=== PATIENT | male | born 1955 | race Caucasian/White ===

== ENCOUNTER 2018-09-10 15:11 | Inpatient (IN) | payer OTHER, MEDICAID ==
[~2018-09-10] VITALS: Ht 165.1 cm; Wt 108.9 kg
[2018-09-10 15:15] VITALS: BP 142/61
[2018-09-10] MEDS ORDERED: NACL 0.9% 1,000 ML IV SCH (15:15)
--- NOTE | 2018-09-10 15:18 | NUR ---
PT BIBA TO BED 10
--- NOTE | 2018-09-10 15:31 | NUR ---
PATIENT BIB AMBULANCE TO ED WITH THE CHIEF C/O ALTERED MENTAL STATUS. PT A/O X4. ABLE TO PROVIDE HX. PT STATED HE HAD N/V. DENIES DIARRHEA. SKIN IS PINK/WARM/DRY. PT DENIES ANY FEVER, CP, SOB, OR COUGH AT THIS TIME; PATIENT STATES PAIN AT LOWER JAW OF 10/10 AT THIS TIME; VSS; PATIENT POSITIONED FOR COMFORT; HOB ELEVATED; BEDRAILS UP X2; BED DOWN. ER MD MADE AWARE OF PT STATUS.
[2018-09-10 15:43] LABS: BASOPHILS % (AUTO) 0.3 % (0.0-2.0); EOSINOPHILS # (AUTO) 0.1 K/uL (0-0.4); HEMATOCRIT 26.9 % (36-52); HEMOGLOBIN 8.9 g/dL (12.0-18.0); LYMPHOCYTES # (AUTO) 0.7 K/uL (2.0-11.5); LYMPHOCYTES % (AUTO) 8.4 % (20.5-51.1); MEAN CORPUSCULAR HEMOGLOBIN 31 pg (27-31); MEAN CORPUSCULAR HGB CONC 33 g/dL (33-37); MONOCYTES # (AUTO) 0.4 K/uL (0.8-1.0); MONOCYTES % (AUTO) 4.9 % (1.7-9.3); NEUTROPHILS # (AUTO) 6.6 K/uL (1.8-7.7); NEUTROPHILS % (AUTO) 85.4 % (42.2-75.2); PLATELET COUNT (AUTO) 231 K/uL (140-450); RED BLOOD CELL COUNT(AUTO) 2.87 MIL/uL (4.20-6.10); RED CELL DISTRIBUTION WIDTH 14.2 % (11.6-13.7); WHITE BLOOD COUNT (AUTO) 7.8 K/uL (4.8-10.8)
[2018-09-10 16:01] LABS: PROTHROMBIN TIME 11.2 secs (10.8-13.4)
[2018-09-10 16:20] LABS: ALBUMIN 3.2 g/dL (3.4-5.0); ANION GAP 23.5 (8-16); CARBON DIOXIDE 14.9 mmol/L (21-32); POTASSIUM 4.4 mmol/L (3.5-5.1); TOTAL BILIRUBIN 0.3 mg/dL (0.0-1.0)
[2018-09-10] MEDS ORDERED: TRAM50TA1 PO (16:21)
[2018-09-10 16:23] LABS: CREATININE 7.8 mg/dL (0.7-1.3)
[2018-09-10 16:26] LABS: SALICYLATE < 2.8 mg/dL (2.8-20.0)
[2018-09-10 16:27] LABS: ACETAMINOPHEN < 0.5 ug/ml (10-30)
--- NOTE | 2018-09-10 16:40 | NUR ---
URINE SAMPLE FOR UA AKANDREW TO THE LAB.
[2018-09-10 16:57] LABS: BILIRUBIN,URINE NEGATIVE (NEGATIVE); BLOOD, URINE MODERATE (NEGATIVE); LEUKOCYTE ESTERASE ,URINE SMALL (NEGATIVE); NITRITE, URINE NEGATIVE (NEGATIVE); UGLUCOSE 1+ (NEGATIVE)
[2018-09-10 16:58] LABS: BARBITURATE, URINE NEG. ng/ml (NEG <=200); BENZODIAZEPINE, URINE NEG. ng/mL (NEG <=200); CANNABINOID, URINE NEG. ng/mL (NEG <=50); COCAINE, URINE POS. ng/mL (NEG <=300); COLOR,URINE YELLOW (YELLOW); OPIATE, URINE NEG. ng/mL (NEG <=2000); PHENCYCLIDINE SCREEN,URINE NEG. ng/mL (NEG <=25)
[2018-09-10 17:07] LABS: CKMB RELATIVE INDEX 0.7 (0.0-2.5); CREATINE KINASE MB 6.4 ng/mL (0-3.6)
[2018-09-10 17:13] LABS: APPEARANCE,URINE SLIGHTLY CLOUDY (CLEAR); RBC,URINE 0-5 (RARE) /HPF (0-5); WBC,URINE TOO MANY TO COUNT /HPF (0-5)
[2018-09-10] MEDS ORDERED: DOCUSATE SODIUM 100 MG GELCAP PO PRN (17:30)
[2018-09-10] MEDS ORDERED: ONDANSETRON 4 MG/2 ML VIAL IM/IVP PRN (17:30)
[2018-09-10] MEDS ORDERED: ACETAMINOPHEN 325 MG TAB PO PRN (17:30)
[2018-09-10] MEDS: NACL 0.9% 1,000 ML IV SCH (17:53)
[2018-09-10] MEDS ORDERED: cefTRIAXone 1,000 MG VIAL ONE (17:55)
[2018-09-10 18:28] LABS: MAGNESIUM 2.2 mg/dL (1.8-2.4); PHOSPHORUS 7.3 mg/dL (2.5-4.9); THYROID STIMULATING HORMONE 2.36 uIU/mL (0.34-3.74)
--- NOTE | 2018-09-10 18:44 | NUR ---
Patient admitted to the floor under the care of Dr. Reynolds . Pt. transferred to 107B on stable condition. Belongings list completed. Report given to CAROL Lin.
--- NOTE | 2018-09-10 18:45 | NUR ---
PATIENT ADMITTED TO THE UNIT FROM ER. PATIENT IS DROWSY BUT AROUSABLE. RIGHT LOWER JAW SWELLING NOTED. PATIENT REPORTS OF 10/10 PAIN IN HIS JAW. WILL MEDICATE. FALL PRECAUTIONS IN PLACE. CALL LIGHT PLACED WITHIN REACH. WILL CONTINUE TO MONITOR
[2018-09-10 18:55] VITALS: BP 151/75
[2018-09-10] MEDS: MORPHINE SULFATE 2 MG/ML SYR IVP PRN (18:58)
--- NOTE | 2018-09-10 19:30 | NUR ---
PATIENT REPORT GIVEN AT BEDSIDE. PATIENT ENDORSED IN STABLE CONDITION
--- NOTE | 2018-09-10 19:30 | NUR ---
RECEIVED REPORT FROM JOSE LUIS RN DAYSHIFT NURSE AT BEDSIDE, FOR CONTINUITY OF CARE, PT IN STABLE CONDITION.
--- NOTE | 2018-09-10 20:30 | NUR ---
PT IN LOW BED WITH SIDE RAILS UP X2. PT AWARE OF NAME AND THAT HE IS IN A HOSPITAL, HE HAS BEEN COOPERATIVE WITH STAFF. PT V/S FOLLOWS T 97.7 P 66 R 20 B/P 146/76 02 100 ON R/A. PT SKIN IN TACT EXCEPT FOR SOME SWELLING IN RIGHT SIDE OF CHEEK AND BILATERAL LOWER LEGS ARE VERY DRY AND FLAKEY WELL DISCOLORED.
[2018-09-10] MEDS ORDERED: MECLIZINE 25 MG TAB PO PRN (20:45)
[2018-09-10] MEDS ORDERED: DEXTROSE 50% 50 ML SYR IVP PRN (20:50)
[2018-09-10] MEDS ORDERED: INSULIN LISPRO SLIDING SCALE 100 UNITS/ML VIAL SUBQ PRN (20:50)
--- NOTE | 2018-09-10 20:50 | NUR ---
UNABLE TO GET PROPER ABG SAMPLE ATTEMPTED 2X'S. SAT 98 HR 71 RR 18. PT IS ON RA. WILL TRY AGAIN LATER.
[2018-09-10] MEDS: BLOOD GLUCOSE MONITORING 1 DEV DEV FS SCH (21:00)
--- NOTE | 2018-09-10 21:00 | NUR ---
PT IN BED RESTING, HE IS ABLE TO AMBULATE BUT HE HAS BEEN USING URINAL AT BEDSIDE.PT AMBULATED TO W/C FOR CT SCAN OF THE HEAD.
[2018-09-10 21:14] LABS: CHOL/HDL RATIO 2.7 (1-4.5)
--- NOTE | 2018-09-10 21:15 | NUR ---
PT RETUNED FROM HEAD CT.
--- NOTE | 2018-09-10 21:30 | NUR ---
PT GIVEN 2100 MEDS DUE AT THIS TIME.
--- NOTE | 2018-09-10 22:00 | NUR ---
NEPHROLOGY CONSULT AT BEDSIDE. PRIMARY DR. ARAUJO AWARE AND UPDATED.
--- NOTE | 2018-09-10 22:30 | NUR ---
US OF CAROTIDS DONE AT BEDSIDE.
[2018-09-10] MEDS: CALCIUM ACETATE 667 MG TAB PO SCH (22:46)
[2018-09-10] MEDS: METOPROLOL 25 MG TAB PO SCH (22:46)
[2018-09-11] VITALS: BP 119/78
--- NOTE | 2018-09-11 | NUR ---
PT IN BED SLEEPING BUT AROUSABLE TO LIGHT SHAKING. NO S/S OF PAIN IR DISTRESS NOTED. V/S FOLLOWS T 99.6 P 59 R 18 B/P 119/78 02 95% WITH R/A.
[2018-09-11] MEDS: NACL 0.9% 1,000 ML IV SCH (05:59)
[2018-09-11 07:16] LABS: BASOPHILS # (AUTO) 0.1 K/uL (0.00-0.22); BASOPHILS % (AUTO) 0.9 % (0.0-2.0); EOSINOPHILS # (AUTO) 0.2 K/uL (0-0.4); EOSINOPHILS % (AUTO) 2.4 % (0.0-4.0); HEMATOCRIT 26.1 % (36-52); HEMOGLOBIN 8.6 g/dL (12.0-18.0); LYMPHOCYTES # (AUTO) 0.8 K/uL (2.0-11.5); LYMPHOCYTES % (AUTO) 11.1 % (20.5-51.1); MEAN CORPUSCULAR HEMOGLOBIN 31 pg (27-31); MEAN CORPUSCULAR HGB CONC 33 g/dL (33-37); MEAN CORPUSCULAR VOLUME 94.9 fL (80-94); MONOCYTES # (AUTO) 0.3 K/uL (0.8-1.0); MONOCYTES % (AUTO) 4.5 % (1.7-9.3); NEUTROPHILS # (AUTO) 5.9 K/uL (1.8-7.7); NEUTROPHILS % (AUTO) 81.1 % (42.2-75.2); PLATELET COUNT (AUTO) 210 K/uL (140-450); RED BLOOD CELL COUNT(AUTO) 2.75 MIL/uL (4.20-6.10); RED CELL DISTRIBUTION WIDTH 14.2 % (11.6-13.7); WHITE BLOOD COUNT (AUTO) 7.2 K/uL (4.8-10.8)
[2018-09-11 07:22] LABS: ANION GAP 21.9 (8-16); CARBON DIOXIDE 15.2 mmol/L (21-32); POTASSIUM 4.1 mmol/L (3.5-5.1)
[2018-09-11 07:26] LABS: MAGNESIUM 2.2 mg/dL (1.8-2.4); PHOSPHORUS 6.6 mg/dL (2.5-4.9)
[2018-09-11 07:28] LABS: CHOL/HDL RATIO 2.6 (1-4.5)
[2018-09-11 07:29] LABS: CREATININE 7.2 mg/dL (0.7-1.3)
--- NOTE | 2018-09-11 07:29 | NUR ---
RECEIVED CRITICAL LAB VALUE FOR PT. BUN IS 102, CREATININE AT 7.2. BOTH VALUES TRENDING DOWN.
[2018-09-11] MEDS: BLOOD GLUCOSE MONITORING 1 DEV DEV FS SCH ×4 (07:30→21:03)
--- NOTE | 2018-09-11 07:30 | NUR ---
RECEIVED CRITICAL FOR PT. CALCIUM AT 5.6. VALUE IS TRENDING UP.
--- NOTE | 2018-09-11 07:30 | NUR ---
REPORT GIVEN TO LINH MEDINA DAYSHIFT NURSE AT BEDSIDE FOR CONTINUITY OF CARE, PT IN STABLE CONDITION
--- NOTE | 2018-09-11 07:46 | NUR ---
RECEIVED REPORT FROM COMPENSATION AND BENEFITS MANAGER NURSE. PT IN STABLE CONDITION. PT HAS LEFT FA 20G IV RUNNING NS AT 80ML/HR. PT SKIN IS INTACT. PT IS AAOX3. ALL NEEDS MET AT THIS TIME. WILL CONTINUE TO MONITOR.
--- NOTE | 2018-09-11 07:55 | NUR ---
PT BS AT 157. PT REFUSED INSULIN COVERAGE FOR ELEVATED BS.
[2018-09-11 08:00] VITALS: BP 131/60
[2018-09-11] MEDS ORDERED: ONDANSETRON 4 MG/2 ML VIAL IVP SCH (08:00)
--- NOTE | 2018-09-11 08:50 | NUR ---
PATIENT HAS BEEN SCREENED AND CATEGORIZED HIGH NUTRITION RISK. PATIENT WILL BE SEEN WITHIN 1-2 DAYS OF ADMISSION. 09/11/18 09/12/[address]
--- NOTE | 2018-09-11 08:55 | NUR ---
ADMINISTERED SCHEDULED MEDS TO TP. PT TOLERATED MEDS WELL. ALL NEEDS MET AT THIS TIME. WILL CONTINUE TO ROUND FREQUENTLY. BED IN LOW POSITION. CALL LIGHT WITHIN REACH.
[2018-09-11] MEDS: METOPROLOL 25 MG TAB PO SCH ×2 (08:57→21:03)
[2018-09-11] MEDS: CALCIUM CARBONATE 500 MG TAB PO SCH (08:57)
[2018-09-11] MEDS: CALCIUM ACETATE 667 MG TAB PO SCH ×3 (08:57→17:13)
--- NOTE | 2018-09-11 09:09 | NUR ---
PT AMBULATING WITH PHYSICAL THERAPY AT THIS TIME.
[2018-09-11] MEDS ORDERED: CALCIUM GLUCONATE 10% 1,000 MG in NACL 0.9% 100 ML IV SCH (12:00)
--- NOTE | 2018-09-11 14:33 | NUR ---
09/11/18 RD INITIAL ASSESSMENT COMPLETED PLEASE REFER TO NUTRITION ASSESSMENT UNDER CARE ACTIVITY FOR ESTIMATED NUTRITIONAL NEEDS. 1. CONTINUE CLEAR LIQUID DIET TOLERATED 2. WHEN APPROPRIATE, CONSIDER ADVANCING DIET TOLERATED TO RENAL DIET PER MD 3. PATIENT DECLINED RENAL DIET EDUCATION. 4. RD TO FOLLOW-UP 3-5 DAYS, MODERATE RISK BERNARD K[address]EN RD
[2018-09-11 16:00] VITALS: BP 142/62
[2018-09-11] MEDS: SODIUM BICARBONATE 8.4% 100 MEQ in NACL 0.45% 1,000 ML IV SCH (17:13)
--- NOTE | 2018-09-11 20:52 | NUR ---
ENDORSED PT TP DATABASE DESIGN ANALYST FOR CONTINUITY OF CARE. PT IN STABLE CONDITION.
--- NOTE | 2018-09-11 20:52 | NUR ---
RECEIVED REPORT FROM KERI MEDINA DAYSHIFT NURSE AT BEDSIDE FOR CONTINUITY OF CARE, PT IN STABLE CONDITION.
[2018-09-11] MEDS: MORPHINE SULFATE 2 MG/ML SYR IVP PRN (21:22)
--- NOTE | 2018-09-11 21:30 | NUR ---
PT IN LOW BED WITH ALL FALLS PRECAUTIONS IN PLACE. V/S FOLLOWS T 98.7 P 58 R 18 B/P 114/66 02 99% WITH R/A. PT C/O 8 PAIN IN MOUTH DUE TO TOOTH ABSCESS. PT MEDICATED WITH MORPHINE IVP. WILL MONITOR FOR PAIN RELIEF.
[2018-09-12] MEDS: HYDROcodone/APAP 5/325 MG 1 TAB TAB PO PRN ×3 (00:48→17:02)
--- NOTE | 2018-09-12 00:49 | NUR ---
PT IN LOW BED WITH ALL FALLS PRECAUTIONS IN PLACE. V/S FOLLOWS T 98.6 P 60 R 18 B/P 131/58 02 98% ON R/A.PT SAID HIS PAIN IS NOW MODERATE 02/12. PT GIVEN NORCO 5/325MG FOR MODERATE PAIN, WILL CONTINUE TO MONITOR FOR EFFECT.
[2018-09-12] MEDS: SODIUM BICARBONATE 8.4% 100 MEQ in NACL 0.45% 1,000 ML IV SCH ×2 (02:40→09:47)
[2018-09-12] MEDS: BLOOD GLUCOSE MONITORING 1 DEV DEV FS SCH ×4 (05:58→21:54)
[2018-09-12 06:51] LABS: BASOPHILS # (AUTO) 0.1 K/uL (0.00-0.22); BASOPHILS % (AUTO) 0.9 % (0.0-2.0); EOSINOPHILS # (AUTO) 0.2 K/uL (0-0.4); EOSINOPHILS % (AUTO) 3.4 % (0.0-4.0); HEMATOCRIT 27.4 % (36-52); HEMOGLOBIN 9.1 g/dL (12.0-18.0); LYMPHOCYTES # (AUTO) 1.1 K/uL (2.0-11.5); LYMPHOCYTES % (AUTO) 16.2 % (20.5-51.1); MEAN CORPUSCULAR HEMOGLOBIN 32 pg (27-31); MEAN CORPUSCULAR HGB CONC 33 g/dL (33-37); MEAN CORPUSCULAR VOLUME 94.8 fL (80-94); MONOCYTES # (AUTO) 0.4 K/uL (0.8-1.0); MONOCYTES % (AUTO) 5.4 % (1.7-9.3); NEUTROPHILS # (AUTO) 5.1 K/uL (1.8-7.7); NEUTROPHILS % (AUTO) 74.1 % (42.2-75.2); PLATELET COUNT (AUTO) 209 K/uL (140-450); RED BLOOD CELL COUNT(AUTO) 2.89 MIL/uL (4.20-6.10); RED CELL DISTRIBUTION WIDTH 14.5 % (11.6-13.7); WHITE BLOOD COUNT (AUTO) 6.9 K/uL (4.8-10.8)
[2018-09-12 07:23] LABS: ANION GAP 18.2 (8-16); CARBON DIOXIDE 17.7 mmol/L (21-32); POTASSIUM 3.9 mmol/L (3.5-5.1)
--- NOTE | 2018-09-12 07:30 | NUR ---
RECEIVED PATIENT REPORT AT THIS TIME. PATIENT IS AWAKE AND ALERT. PATIENT ON ROOM AIR. NO S/S OF DISTRESS. FALL PRECAUTIONS IN PLACE. WILL CONTINUE TO MONITOR
--- NOTE | 2018-09-12 07:41 | NUR ---
REPORT GIVEN TO JOSE LUIS RN DAYSHIFT NURSE AT BEDSIDE FOR CONTINUITY OF CARE, PT IN STABLE CONDITION.
[2018-09-12 07:42] LABS: PHOSPHORUS 5.8 mg/dL (2.5-4.9)
[2018-09-12 08:00] VITALS: BP 150/52
[2018-09-12 08:13] LABS: FOLIC ACID 16.6 ng/mL (>3.0)
[2018-09-12 08:21] LABS: CREATININE 6.5 mg/dL (0.7-1.3)
[2018-09-12] MEDS: CALCIUM ACETATE 667 MG TAB PO SCH (09:44)
[2018-09-12] MEDS: SODIUM BICARBONATE 650 MG TAB PO SCH ×2 (09:45→21:41)
[2018-09-12] MEDS: CALCIUM CARBONATE 500 MG TAB PO SCH (09:46)
[2018-09-12] MEDS: METOPROLOL 25 MG TAB PO SCH ×2 (09:48→21:00)
[2018-09-12] MEDS ORDERED: CALCIUM ACETATE 667 MG TAB PO SCH (10:30)
[2018-09-12 16:00] VITALS: BP 145/65
--- NOTE | 2018-09-12 17:00 | NUR ---
PATIENT 'S BLOOD SUGAR IS 160. PATIENT REFUSES TO RECEIVE INSULIN. EXPLAINED TO THE PATIENT THAT HE IS ON A SLIDING SCALE. PATIENT STILL REFUSES TO TAKE INSULIN. PATIENT WANTS TO HAVE HIS BLOOD SUGAR RECHECKED AT NIGHT
--- NOTE | 2018-09-12 18:30 | NUR ---
PATIENT EATING DINNER. PATIENT TOLERATING [facility] SOFT DIET WELL. NO S/S OF DISTRESS NOTED
--- NOTE | 2018-09-12 19:22 | NUR ---
PATIENT REPORT GIVEN AT BEDSIDE. PATIENT ENDORSED IN STABLE CONDITION
--- NOTE | 2018-09-12 19:23 | NUR ---
RECEIVED REPORT FROM DAYSHIFT NURSE AT BEDSIDE FOR CONTINUITY OF CARE. PT AAOX4. PT IV NOTED RFA 22G NS & SODIUM BICARB. NO SOB NO S/S OF DISTRESS ON RA. BED LOWERED CALL LIGHT WITHIN REACH WILL CONTINUE TO MONITOR.
--- NOTE | 2018-09-12 21:30 | NUR ---
PT TOOK MEDS WELL. NO PAIN NO SOB NO S/S OF DISTRESS ON RA. BED LOWERED CALL LIGHT WITHIN REACH WILL CONTINUE TO MONITOR.
--- NOTE | 2018-09-13 01:34 | NUR ---
PT SLEEPING NO SOB NO S/S OF DISTRESS ON RA. WILL CONTINUE TO MONITOR.
[2018-09-13] MEDS: HYDROcodone/APAP 5/325 MG 1 TAB TAB PO PRN ×3 (02:57→22:31)
[2018-09-13] MEDS: SODIUM BICARBONATE 8.4% 100 MEQ in NACL 0.45% 1,000 ML IV SCH (02:57)
[2018-09-13] MEDS ORDERED: PNEUMOCOCCAL VACCINE 23 MCG/0.5 ML VIAL IMVAC PRN (03:50)
[2018-09-13] MEDS ORDERED: INFLUENZA VIRUS VACCINE QUAD 0.5 ML SYR IMVAC PRN (03:50)
[2018-09-13] MEDS: BLOOD GLUCOSE MONITORING 1 DEV DEV FS SCH ×4 (05:40→20:36)
--- NOTE | 2018-09-13 07:21 | NUR ---
ENDORSED REPORT TO DAYSHIFT NURSE AT BEDSIDE FOR CONTINUITY OF CARE.
[2018-09-13 07:40] LABS: ANION GAP 17.2 (8-16); BASOPHILS % (AUTO) 0.6 % (0.0-2.0); CARBON DIOXIDE 21.6 mmol/L (21-32); EOSINOPHILS # (AUTO) 0.2 K/uL (0-0.4); EOSINOPHILS % (AUTO) 3.9 % (0.0-4.0); HEMATOCRIT 23.1 % (36-52); HEMOGLOBIN 7.8 g/dL (12.0-18.0); LYMPHOCYTES # (AUTO) 1.4 K/uL (2.0-11.5); LYMPHOCYTES % (AUTO) 21.9 % (20.5-51.1); MEAN CORPUSCULAR HEMOGLOBIN 31 pg (27-31); MEAN CORPUSCULAR HGB CONC 34 g/dL (33-37); MEAN CORPUSCULAR VOLUME 93.5 fL (80-94); MONOCYTES # (AUTO) 0.3 K/uL (0.8-1.0); MONOCYTES % (AUTO) 5.4 % (1.7-9.3); NEUTROPHILS # (AUTO) 4.4 K/uL (1.8-7.7); NEUTROPHILS % (AUTO) 68.2 % (42.2-75.2); PLATELET COUNT (AUTO) 202 K/uL (140-450); POTASSIUM 3.8 mmol/L (3.5-5.1); RED BLOOD CELL COUNT(AUTO) 2.47 MIL/uL (4.20-6.10); RED CELL DISTRIBUTION WIDTH 14.1 % (11.6-13.7); WHITE BLOOD COUNT (AUTO) 6.4 K/uL (4.8-10.8)
[2018-09-13 07:49] VITALS: BP 126/54
[2018-09-13] MEDS ORDERED: CALCIUM ACETATE 667 MG TAB PO SCH (08:00)
[2018-09-13 08:15] LABS: CREATININE 6.1 mg/dL (0.7-1.3)
[2018-09-13 08:32] LABS: MAGNESIUM 1.9 mg/dL (1.8-2.4); PHOSPHORUS 5.5 mg/dL (2.5-4.9)
[2018-09-13] MEDS: METOPROLOL 25 MG TAB PO SCH ×2 (08:45→20:36)
[2018-09-13] MEDS: CALCIUM CARBONATE 500 MG TAB PO SCH (08:45)
[2018-09-13] MEDS: SODIUM BICARBONATE 650 MG TAB PO SCH ×2 (08:46→20:36)
--- NOTE | 2018-09-13 14:27 | NUR ---
PATIENT AWAKE IN BED. NO S/S OF DISTRESS NOTED AT THIS TIME
--- NOTE | 2018-09-13 19:27 | NUR ---
PATIENT ENDORSED TO VISUALLY IMPAIRED TEACHER NURSE. PATIENT ENDORSED IN STABLE CONDITION
[2018-09-13 20:00] VITALS: BP 112/52
--- NOTE | 2018-09-13 23:32 | NUR ---
ADMIN PAIN MED 1 HR AGO. PT SLEEPING. NO SOB NO S/S DISTRESS ON RA. WILL CONTINUE TO MONITOR.
--- NOTE | 2018-09-14 04:11 | NUR ---
PT SLEEPING. NO SOB NO S/S OF DISTRESS ON RA. WILL CONTINUE TO MONITOR.
[2018-09-14] MEDS: BLOOD GLUCOSE MONITORING 1 DEV DEV FS SCH ×2 (05:47→12:09)
[2018-09-14] MEDS: HYDROcodone/APAP 5/325 MG 1 TAB TAB PO PRN (05:50)
[2018-09-14 06:36] LABS: BASOPHILS % (AUTO) 0.6 % (0.0-2.0); EOSINOPHILS # (AUTO) 0.3 K/uL (0-0.4); EOSINOPHILS % (AUTO) 5.1 % (0.0-4.0); HEMATOCRIT 24.7 % (36-52); HEMOGLOBIN 8.2 g/dL (12.0-18.0); LYMPHOCYTES # (AUTO) 1.3 K/uL (2.0-11.5); LYMPHOCYTES % (AUTO) 22.1 % (20.5-51.1); MEAN CORPUSCULAR HEMOGLOBIN 32 pg (27-31); MEAN CORPUSCULAR HGB CONC 33 g/dL (33-37); MEAN CORPUSCULAR VOLUME 95.4 fL (80-94); MONOCYTES # (AUTO) 0.4 K/uL (0.8-1.0); MONOCYTES % (AUTO) 6.1 % (1.7-9.3); NEUTROPHILS % (AUTO) 66.1 % (42.2-75.2); PLATELET COUNT (AUTO) 207 K/uL (140-450); RED BLOOD CELL COUNT(AUTO) 2.59 MIL/uL (4.20-6.10); RED CELL DISTRIBUTION WIDTH 14.4 % (11.6-13.7)
--- NOTE | 2018-09-14 07:15 | NUR ---
ENDORSED REPORT TO DAYSHIFT NURSE AT BEDSIDE FOR CONTINUITY OF CARE.
--- NOTE | 2018-09-14 07:16 | NUR ---
RECEIVED BEDSIDE REPORT FROM VETERINARY LABORATORY TECHNICIAN NURSE. PATIENT AAOX4. NO SIGNS OF RESPIRATORY DISTRESS, ON RA. SKIN INTACT, EXCEPT FOR SCALY, DRY ANKLES. IV ON R FA 22G SALINE LOCK, CLEAN, DRY AND INTACT. PATIENT AMBULATES W ASSISTANCE. HAS BEDSIDE URINAL. FALL RISK PROTOCOL IN PLACE. NO PRESENCE OF BLADDER DISTENTION. BED IN LOW POSITION, CALL LIGHT WITHIN REACH. WILL CONTINUE TO MONITOR.
[2018-09-14 07:27] LABS: ANION GAP 16.6 (8-16); POTASSIUM 4.6 mmol/L (3.5-5.1)
[2018-09-14 07:29] LABS: PHOSPHORUS 5.8 mg/dL (2.5-4.9)
[2018-09-14 08:00] VITALS: BP 114/48
[2018-09-14 08:00] LABS: CREATININE 6.4 mg/dL (0.7-1.3)
[2018-09-14] MEDS: SODIUM BICARBONATE 650 MG TAB PO SCH (10:07)
[2018-09-14] MEDS: CALCIUM CARBONATE 500 MG TAB PO SCH (10:08)
[2018-09-14] MEDS: METOPROLOL 25 MG TAB PO SCH (10:12)
--- NOTE | 2018-09-14 10:16 | NUR ---
ADMINISTERED MEDS. PATIENT TOLERATED WELL. ADMINISTERED PNA AND FLU VACCINES. PATIENT TOLERATED WELL. WILL CONTINUE TO MONITOR THE PATIENT.
--- NOTE | 2018-09-14 12:00 | NUR ---
PATIENT EATING. NO SIGNS OF DISTRESS. WILL CONTINUE TO MONITOR.
[2018-09-14] MEDS ORDERED: HYDR-5122 PO (13:22)
--- NOTE | 2018-09-14 13:30 | NUR ---
PATIENT EDUCATED ON DX. EDUCATED TO FOLLOW UP WITH PCP AND TREE WRAPPER. ADMINISTERED PNA AND FLU VACCINE. EDUCATED ON MEDS. GAV PRESCRIPTION FOR NORCO. EDUCATED WHEN TO GO TO NEAREST ER. ANSWERED PATIENT'S QUESTION AND CONCERNS. PATIENT VERBALIZED UNDERSTANDING. REMOVED ID BANDS, IV, TIP INTACT, NIECE MINE AT BEDSIDE. PATIENT WHEELED OUT IN STABLE CONDITION.
== END 2018-09-14 13:30 | disposition home or self-care (01) | DRG 917 ==
LOC: MED 15:11 → MTU 17:37
PROVIDERS: ADMIT General Practice; ATTEND General Practice
PROC: 3E02340 Introduction of Influenza Vaccine into Muscle, Percutaneous Approach (ICD-10-PCS; principal; 2018-09-13)
PROC: 3E0234Z Introduction of Serum, Toxoid and Vaccine into Muscle, Percutaneous Approach (ICD-10-PCS; 2018-09-13)
DX: T40.5X1A Poisoning by cocaine, accidental (unintentional), initial encounter (principal); G92 Toxic encephalopathy; N17.0 Acute kidney failure with tubular necrosis; I50.43 Acute on chronic combined systolic (congestive) and diastolic (congestive) heart failure; N39.0 Urinary tract infection, site not specified; M62.82 Rhabdomyolysis; E44.1 Mild protein-calorie malnutrition; E87.2 Acidosis; N18.5 Chronic kidney disease, stage 5; I13.2 Hypertensive heart and chronic kidney disease with heart failure and with stage 5 chronic kidney disease, or end stage renal disease; Z68.41 Body mass index [BMI] 40.0-44.9, adult; E83.51 Hypocalcemia; Z23 Encounter for immunization; E11.22 Type 2 diabetes mellitus with diabetic chronic kidney disease; E83.39 Other disorders of phosphorus metabolism; D64.9 Anemia, unspecified; F15.10 Other stimulant abuse, uncomplicated; K04.7 Periapical abscess without sinus; F14.10 Cocaine abuse, uncomplicated; Z91.19 Patient's noncompliance with other medical treatment and regimen; F19.10 Other psychoactive substance abuse, uncomplicated; E11.65 Type 2 diabetes mellitus with hyperglycemia; E66.01 Morbid (severe) obesity due to excess calories; D63.1 Anemia in chronic kidney disease; Y92.89 Other specified places as the place of occurrence of the external cause
CPT/HCPCS: 36415; 36600; 70450; 71045; 76536; 76770; 80048; 80053; 80305; 81001; 82140; 82550; 82553; 82607; 82728; 82746; 82803; 82948; 83036; 83540; 83605; 83690; 83735; 83880; 84100; 84134; 84443; 84484; 84550; 85025; 85045; 85610; 85730; 87040; 87081; 87086; 90658; 90732; 93880; 93925; 93970; 96360; 97110; 97116; 97530; 99285; G0480; G0482; J0610; J0696; J1815; J2270; J2405; J3490; J7030; J7060; Q0092

== ENCOUNTER 2019-04-22 20:52 | Inpatient (IN) | payer OTHER ==
[~2019-04-22] VITALS: Ht 165.1 cm; Wt 81.6 kg
[~2019-04-22 20:52] MED LIST: HYDR-5122 PO
[2019-04-22 20:57] VITALS: BP 154/97
--- NOTE | 2019-04-22 21:00 | NUR ---
TO LOBBY A/W BED VIA WHEEL CHAIR
[2019-04-22] MEDS ORDERED: MORPHINE SULFATE 4 MG/ML SYR IVP ONE (22:25)
--- NOTE | 2019-04-22 22:25 | NUR ---
PT IS A 63 Y/O MALE WHO PRESENTS TO THE ED C/O FOOT PAIN. PER PT SYMPTOMS STARTED X2 MONTHS S/P STEPPING ON A STICK. NOTED WOUND TO R HEEL WITH MAGGOTS. APPEARS ASHY, GELLER AND SWOLLEN. PT REPORTS 10/10 ACHING R HEEL PAIN THAT DOES NOT RADIATE. PT DENIES CP, SOB, N/V/D. PT AWAKE AND ALERT, RR EVEN/UNLABORED. PT REPOSITIONED FOR COMFORT, BED IN LOWEST POSITION. ER MD DR. SMITH NOTIFIED. WILL CONTINUE TO MONITOR. PMH---DAR LEMONSA
[2019-04-22 23:08] LABS: BASOPHILS % (AUTO) 0.7 % (0.0-2.0); EOSINOPHILS # (AUTO) 0.3 K/uL (0-0.4); EOSINOPHILS % (AUTO) 5.2 % (0.0-4.0); LYMPHOCYTES # (AUTO) 0.8 K/uL (2.0-11.5); MEAN CORPUSCULAR HEMOGLOBIN 32 pg (27-31); MEAN CORPUSCULAR HGB CONC 33 g/dL (33-37); MEAN CORPUSCULAR VOLUME 94.6 fL (80-94); MONOCYTES # (AUTO) 0.4 K/uL (0.8-1.0); MONOCYTES % (AUTO) 6.4 % (1.7-9.3); NEUTROPHILS # (AUTO) 4.8 K/uL (1.8-7.7); NEUTROPHILS % (AUTO) 74.7 % (42.2-75.2); PLATELET COUNT (AUTO) 184 K/uL (140-450); RED BLOOD CELL COUNT(AUTO) 2.18 MIL/uL (4.20-6.10); RED CELL DISTRIBUTION WIDTH 14.2 % (11.6-13.7); WHITE BLOOD COUNT (AUTO) 6.5 K/uL (4.8-10.8)
--- NOTE | 2019-04-22 23:30 | NUR ---
PATIENT RESTING AT THIS TIME. NO SIGNS OF DISTRESS.
[2019-04-22 23:35] LABS: ALBUMIN 2.9 g/dL (3.4-5.0); ANION GAP 19.2 (8-16); CARBON DIOXIDE 19.1 mmol/L (21-32); POTASSIUM 5.3 mmol/L (3.5-5.1); TOTAL BILIRUBIN 0.3 mg/dL (0.0-1.0)
[2019-04-22 23:42] LABS: CREATININE 6.9 mg/dL (0.7-1.3)
[2019-04-22 23:43] LABS: HEMATOCRIT 20.6 % (36-52); HEMOGLOBIN 6.9 g/dL (12.0-18.0)
[2019-04-22] MEDS ORDERED: INSULIN REGULAR, HUMAN 100 UNIT/ML VIAL SUBQ ONE (23:45)
[2019-04-22] MEDS ORDERED: SODIUM POLYSTYRENE 15 GM/60 ML UDBTL PR ONE (23:45)
[2019-04-22] MEDS ORDERED: DEXTROSE 50% 50 ML SYR IVP ONE (23:45)
[2019-04-22] MEDS ORDERED: PIPERACILLIN/TAZOBACTAM 3.375 GM in DEXTROSE 5% 50 ML IV ONE (23:45)
[2019-04-23] MEDS ORDERED: PIPERACILLIN/TAZOBACTAM 3.375 GM VIAL IV ONE
--- NOTE | 2019-04-23 | NUR ---
WOUND CULTURE SWABBED AND SENT TO LAB.
[2019-04-23 00:06] LABS: PROTHROMBIN TIME 10.6 secs (10.8-13.4)
[2019-04-23 00:22] LABS: APPEARANCE,URINE CLOUDY (CLEAR); BILIRUBIN,URINE NEGATIVE (NEGATIVE); BLOOD, URINE 2+ (NEGATIVE); COLOR,URINE YELLOW (YELLOW); LEUKOCYTE ESTERASE ,URINE 1+ (NEGATIVE); NITRITE, URINE NEGATIVE (NEGATIVE); UGLUCOSE TRACE (NEGATIVE)
[2019-04-23] MEDS ORDERED: diphenhydrAMINE 50 MG/ML VIAL IVP ONE (00:25)
[2019-04-23] MEDS ORDERED: methylPREDNISolone SS 125 MG/2 ML VIAL IVP ONE (00:25)
--- NOTE | 2019-04-23 00:25 | NUR ---
AFTER ADMINISTRATION OF ZOSYN, PT REPORTS GEN BODY ITCHING AND DIFF BREATHING. MILD REDNESS NOTED TO BODY. ZOSYN STOPPED AND ER MADE AWARE. 5L NC PROVIDED.
[2019-04-23 00:28] LABS: BARBITURATE, URINE NEG. ng/ml (NEG <=200); BENZODIAZEPINE, URINE NEG. ng/mL (NEG <=200); CANNABINOID, URINE NEG. ng/mL (NEG <=50); COCAINE, URINE POS. ng/mL (NEG <=300); OPIATE, URINE NEG. ng/mL (NEG <=2000); PHENCYCLIDINE SCREEN,URINE NEG. ng/mL (NEG <=25)
--- NOTE | 2019-04-23 00:30 | NUR ---
BENADRYL AND SOLU MEDROL GIVEN AT THIS TIME. PT REPORTS DECREASE IN GEN ITCHINESS AND DIFF BREATHING.
[2019-04-23] MEDS ORDERED: diphenhydrAMINE 50 MG/ML VIAL ONE (00:38)
[2019-04-23] MEDS ORDERED: methylPREDNISolone SS 125 MG/2 ML VIAL ONE (00:39)
[2019-04-23] MEDS ORDERED: ACETAMINOPHEN 325 MG TAB PO PRN (00:50)
--- NOTE | 2019-04-23 00:50 | NUR ---
Patient will be admitted to care of DR. POWER. Admited to TELE. Will go to room 118. Belongings list completed. Report to COMPRESSED YEAST SUPERVISOR.
[2019-04-23 01:00] LABS: RBC,URINE 11-20 (MOD) /HPF (0-5); WBC,URINE TOO MANY TO COUNT /HPF (0-5)
[2019-04-23 01:15] VITALS: BP 136/48
--- NOTE | 2019-04-23 01:15 | NUR ---
RECEIVED PT FROM ER NURSE. PT AWAKE, ALERT AND ORIENTED X4. VISIBLE CHEST RISE AND FALL ON 5L 02 VIA N.C. PT ABLE TO ANSWER QUESTIONS AND FOLLOW COMMANDS. PT HAS RIGHT HAND 22G INTACT. PT HAS WOUND ON HEEL OF BOTTOM RIGHT FOOT. PT HAS SELF-INFLICTED SCRATCH ON LEFT FOREARM AND SWOLLEN, CRACKED, WEEPING SKIN ON BILATERAL LOWER EXTREMITIES. PT PLACED ON FALL PRECAUTIONS, UNABLE TO ASSESS GAIT AT THIS TIME. URINAL PLACED AT BEDSIDE. PT ORIENTED TO CALL LIGHT. CALL LIGHT WITHIN REACH.
[2019-04-23] MEDS ORDERED: VANCOMYCIN PER PHARMACY MC PRN (01:30)
[2019-04-23 01:31] LABS: MAGNESIUM 2.3 mg/dL (1.8-2.4); PHOSPHORUS 6.7 mg/dL (2.5-4.9); THYROID STIMULATING HORMONE 2.73 uIU/mL (0.34-3.74)
[2019-04-23] MEDS ORDERED: VANCOMYCIN 1,250 MG in DEXTROSE 5% 250 ML IV SCH (02:30)
[2019-04-23] MEDS ORDERED: DEXTROSE 50% 50 ML SYR IVP PRN (03:55)
[2019-04-23] MEDS ORDERED: VANCOMYCIN 1,000 MG VIAL ONE (04:20)
[2019-04-23] MEDS ORDERED: VANCOMYCIN 500 MG VIAL ONE (04:21)
[2019-04-23 04:50] VITALS: BP 129/68
--- NOTE | 2019-04-23 04:50 | NUR ---
PT O2 SATURATION AT 100% LOWERED OXYGEN TO 3L O2, MONITORED PT SATURATION LEVEL. PT SATURATION STILL MAINTAINING 100%, LOWERED OXYGEN TO 1L
--- NOTE | 2019-04-23 05:58 | NUR ---
PT BLOOD GLUCOSE 64. PT GIVEN JUICE FOR LOW GLUCOSE LEVEL
--- NOTE | 2019-04-23 07:05 | NUR ---
ENDORSED TO AM NURSE FOR CONTINUITY OF CARE. PT IN STABLE CONDITION.
--- NOTE | 2019-04-23 07:06 | NUR ---
PT RESTING IN BED AOX4 DENIES PAIN OR FEVER OR DISCOMFORT. PT HAS A RIGHT HAND 22 IV THAT IS SALINE LOCKED. PT HAS A OPEN UNSTAGEABLE WOUND TO RIGHT HEEL. WOUND IS NOT DRAINING OR HAVING ANY DISCERNIBLE SMELL AT THIS TIME. PT BREATHING UNLABORED AND WITHOUT DISTRESS. ALL SAFETY MEASURES IN PLACE AND CALL LIGHT WITHIN REACH. PT HAS BILATERAL LEG AND ARM DARK SKIN THAT IS ROUGH AND DRY. NO OPEN WOUNDS OR DRAINAGE. RIGHT FOOT IS ALSO SWOLLEN.
[2019-04-23] MEDS: BLOOD GLUCOSE MONITORING 1 DEV DEV FS SCH ×5 (07:15→21:25)
[2019-04-23 07:40] LABS: CHOL/HDL RATIO 2.4 (1-4.5)
[2019-04-23] MEDS ORDERED: HYDROGEN PEROXIDE 3% 240 ML BTL TP SCH (07:50)
[2019-04-23 08:00] VITALS: BP 127/77
--- NOTE | 2019-04-23 08:40 | NUR ---
PT SLEEPING IN BED BREATHING UNLABORED NO DISTRESS.
--- NOTE | 2019-04-23 09:05 | NUR ---
DR DUNN INFORMED ME TO ONLY GIVE 1 UNIT OF BLOOD NOT 2 WHEN IT IS READY.
--- NOTE | 2019-04-23 09:10 | NUR ---
PT SISTER CALLED, SPOKE TO PT GOT VERBAL PERMISSION TO TALK TO HER ABOUT PT CONDITION. SHE INFORMED ME SHE WILL BE VISITING PT IN ABOUT 2 HOURS. PT RESTING IN BED NO REQUESTS.
--- NOTE | 2019-04-23 09:39 | NUR ---
ADMINISTERED MEDICATION PT RESTING IN BED, PT ABOUT TO RECEIVED ULTRASOUND AT BEDSIDE.
--- NOTE | 2019-04-23 09:51 | NUR ---
WOUND CARE EVALUATION NOTE: REASON FOR EVALUATION: RIGHT HEEL WOUND SKIN ASSESSMENT DONE WITH THIS 63 Y/O MALE PT ADMITTED FROM HOME TO [facility] WITH INITIAL DX OF RLE PAIN. PAST MEDICAL HX INCLUDES HTN, DM ESRD, ANEMIA AND FOOT INFECTION. ALL ABOVE INFORMATION OBTAINED FROM ADMISSION H&P. PT IS AWAKE. SKIN IS WARM AND DRY, POOR PERSONAL HYGIENE OBSERVED. BLE NO HAIR GROWTH, +1 EDEMA TO BILATERAL LOWER LEGS. BILATERAL DORSAL PEDAL PULSES PRESENT AND DIMINISHES, THICKEN FUNGAL NAILS OBSERVED. PT IS ABLE TO TURN AND REPOSITION. ABLE TO AMBULATE TO . PLAN OF CARE DISCUSSED WITH PRIMARY RN AND PT. PT. VERBALIZING UNDERSTANDING. INTEGUMENTARY: -XEROSIS TO BLE -DIABETIC ULCER TO RIGHT HEEL, 1X4X1.5CM, UNDERMINING 7-9 OCLOCK 0.5CM WOUND BED IS PALE PINK, MOIST, NO ODOR, WOUND EDGE SLIGHTLY HYPERKERATOTIC BORDER AND RUT WOUND SKIN PALE WHITE, PAIN 0/10 -LEFT HEEL THICK CALLUS RECOMMENDATIONS: -V/A ULTRASOUNDS TO BILATERAL LOWER EXTREMITIES -NUCLEAR MEDICINE PENDING -PODIATRY CONSULT PENDING -APPLY HYDRA GUARD TO BLE BID AND LEAVE IT OPEN TO AIR -CLEANSE RIGHT HEEL WITH NS AND GAUZE, PAT DRY, PACK WITH ADAPTIC DRESSING, AND WRAP WITH IMMANUEL Q DAY AND PRN WITH SOILING. -APPLY HEEL RAISER TO RIGHT HEEL AT ALL TIMES -OFFLOAD BILATERAL HEELS BY PLACING PILLOWS UNDER CALVES UNLESS OTHERWISE CONTRAINDICATED -CONTINUE TO FOLLOW RD RECOMMENDATIONS ALL ABOVE RECOMMENDATIONS DISCUSSED WITH PRIMARY RN WILL FOLLOW UP PT Q7-10 DAYS. PLEASE CONTACT WOUND CARE NURSE FOR ANY QUESTION AND CHANGE OF WOUND CONDITION.
[2019-04-23] MEDS ORDERED: EPOETIN ALFA 10,000 UNITS/ML VIAL SUBQ SCH (10:00)
[2019-04-23] MEDS ORDERED: FERROUS SULFATE 325 MG TABEC PO SCH (10:30)
[2019-04-23] MEDS: CALCIUM ACETATE 667 MG TAB PO SCH ×2 (11:34→16:06)
[2019-04-23] MEDS: INSULIN LISPRO SLIDING SCALE 100 UNITS/ML VIAL SUBQ PRN ×3 (11:37→21:24)
--- NOTE | 2019-04-23 11:55 | NUR ---
ADMINISTERED BLOOD AFTER VERIFYING WITH BLOOD BANK AND ANOTHER RN AT BEDSIDE. PT BREATHING UNLABORED DENIES FEVER CHILLS OR PAIN. PT HAS FAMILY AT BEDSIDE WELL, MOTHER AND MALE VISITOR. THEY DENY ANY REQUESTS AT THIS TIME.
[2019-04-23 12:00] VITALS: BP 140/67
--- NOTE | 2019-04-23 12:10 | NUR ---
WOUND CARE NURSE CAME AND DID INITIAL ASSESSMENT AND TAPE SEWER CAME AND PERFORMED WOUND CARE ON THIS DATE. THIS NURSE WAS AT BEDSIDE WHILE TAPE SEWER PERFORMED WOUND CARE.
--- NOTE | 2019-04-23 12:10 | NUR ---
PT RESTING IN BED DENIES FEVER OR CHILLS VITALS WNL.
--- NOTE | 2019-04-23 12:40 | NUR ---
PT RESTING IN BED NO PAIN OR DISTRESS BREATHING UNLABORED VITALS WNL DURING BLOOD TRANSFUSION
--- NOTE | 2019-04-23 13:10 | NUR ---
PT RESTING IN BED WITH FAMILY AT BEDSIDE. NO PAIN AND BREATHING UNLABORED WITH NO REQUESTS OR DISTRESS.
[2019-04-23] MEDS ORDERED: LIDOCAINE 2% 1000 MG/50 ML VIAL INJ SCH (13:30)
--- NOTE | 2019-04-23 14:10 | NUR ---
PT RESTING IN BED EATING LUNCH, VITALS CONTINUE TO BE STABLE WITHOUT REACTIONARY CHANGE. PT DENIES PAIN OR DISCOMFORT.
--- NOTE | 2019-04-23 14:45 | NUR ---
PT CURRENTLY OUT OF ROOM AT NUCLEAR MEDICINE. TRANSPORTED VIA WHEELCHAIR
--- NOTE | 2019-04-23 15:50 | NUR ---
PT BLOOD ADMINISTRATION FINISHED. PT STATES FEET ARE SORE FROM GOING TO NUCLEAR MEDICINE BUT DENIES ANY OTHER DISCOMFORT OR REQUESTS.
[2019-04-23 16:00] VITALS: BP 126/73
[2019-04-23] MEDS: HYDROcodone/APAP 5/325 MG 1 TAB TAB PO PRN ×2 (16:06→21:26)
--- NOTE | 2019-04-23 16:39 | NUR ---
ADMINISTERED INSULIN. PT RESTING IN BED STATING HE IS FEELING BETTER RIGHT NOW.
--- NOTE | 2019-04-23 18:41 | NUR ---
PT RESTING IN BED DENIES ANY REQUESTS AND IS WITHOUT OBVIOUS DISTRESS.
[2019-04-23 18:43] LABS: BASOPHILS % (AUTO) 0.1 % (0.0-2.0); EOSINOPHILS % (AUTO) 0.1 % (0.0-4.0); HEMATOCRIT 22.9 % (36-52); HEMOGLOBIN 7.6 g/dL (12.0-18.0); LYMPHOCYTES # (AUTO) 0.3 K/uL (2.0-11.5); LYMPHOCYTES % (AUTO) 6.1 % (20.5-51.1); MEAN CORPUSCULAR HEMOGLOBIN 31 pg (27-31); MEAN CORPUSCULAR HGB CONC 33 g/dL (33-37); MEAN CORPUSCULAR VOLUME 93.5 fL (80-94); MONOCYTES # (AUTO) 0.1 K/uL (0.8-1.0); NEUTROPHILS # (AUTO) 4.9 K/uL (1.8-7.7); NEUTROPHILS % (AUTO) 91.7 % (42.2-75.2); PLATELET COUNT (AUTO) 161 K/uL (140-450); RED BLOOD CELL COUNT(AUTO) 2.45 MIL/uL (4.20-6.10); RED CELL DISTRIBUTION WIDTH 14.4 % (11.6-13.7); WHITE BLOOD COUNT (AUTO) 5.3 K/uL (4.8-10.8)
--- NOTE | 2019-04-23 19:11 | NUR ---
ENDORSED TO NIGHTSHIFT NURSE, PT IN STABLE CONDITION. ENDORSED TO HER INSTRUCTIONS TO LEAVE LIDOCAINE AT BEDSIDE PER MD ORDERS.
--- NOTE | 2019-04-23 19:15 | NUR ---
REPORT GIVEN BY QUINCY RN DAYSHIFT NURSE AT BEDSIDE FOR CONTINUITY OF CARE, PT IN STABLE CONDITION.
--- NOTE | 2019-04-23 19:35 | NUR ---
PT WENT TO RADIOLOGY FOR 2ND PART OF BONE SCAN, PT LEFT FLOOR VIA W/C.
[2019-04-23 20:00] VITALS: BP 142/70
--- NOTE | 2019-04-23 20:15 | NUR ---
PT RETURNED FROM BONE SCAN. PT IN LOW BED WITH SIDE RAILS UP X2. V/S FOLLOWS T 98.2 P 68 R 18 B/P 142/70 02 99% ON ROOM AIR. PT HAS NO C/O VOICED AT THIS TIME.
--- NOTE | 2019-04-23 21:30 | NUR ---
PT IN BED , FINGERSTICK IS 168, PT GIVEN 2 UNITS OF HUMALOG COVERAGE. PT ALSO C/O OF 7/10 PAIN GIVEN PO/PRN NORCO FOR GENERALIZED BODY ACHES. PT LAST HG WAS 7.6 PER RESIDENT TO HOLD TRANSFUSION OF 2ND UNIT. AMADEO AT BEDSIDE CONSULTING WITH PT. RESIDENT ASIF AND DR. CARROLL WANTED TO ORDER AND HAVE DR. CARROLL PLACE A ARELI CATH FOR RESIDENT SO THEY COULD ORDER DIALYSIS FOR PT. PT HOWEVER DIDNT LIKE THE IDEA OF A MEETA CATH IN HIS NECK. DR. CARROLL EXPLAINED THE RISKS AND BENEFITS , HOWEVER PT DIDN'T WANT A TEMPORARY ARELI CATH PLACED IN NECK AT THIS TIME.
[2019-04-23] MEDS ORDERED: CIPROFLOXACIN 250 MG TAB PO SCH (22:00)
[2019-04-23] MEDS ORDERED: CLINDAMYCIN 600 MG/4 ML VIAL ONE (22:37)
[2019-04-23] MEDS: CLINDAMYCIN 600 MG in DEXTROSE 5% 50 ML IV SCH (22:42)
--- NOTE | 2019-04-23 23:30 | NUR ---
PT IN BED DR. CHILDS ORDERED CIPRO 500MG PO WELL 1000MG OF CLINDAMYCIN IV ABT. V/S FOLLOWS T 98.0 P 63 R 18 B/P 139/67 02 98% ON ROOM AIR. IV SITE ON RIGHT HAND 22G INTACT AND FLUSHED PATENT. ALL REQUESTED NEEDS ATTENDED BY STAFF.
[2019-04-24] VITALS: BP 139/67
--- NOTE | 2019-04-24 02:00 | NUR ---
PT ASLEEP IN BED NO S/S OF PAIN OR DISTRESS NOTED. ALL FALLS PRECAUTIONS IN PLACE.
[2019-04-24 04:00] VITALS: BP 129/60
--- NOTE | 2019-04-24 04:00 | NUR ---
PT IN BED ALL VITAL SIGNS STABLE.
--- NOTE | 2019-04-24 05:45 | NUR ---
PT CLINDAMYCIN HUNG ORDERED. FINGERSTICK IS 116 NO HUMALOG COVERAGE NEEDED.
[2019-04-24] MEDS: CLINDAMYCIN 600 MG in DEXTROSE 5% 50 ML IV SCH (06:24)
[2019-04-24] MEDS ORDERED: CLINDAMYCIN 600 MG/4 ML VIAL ONE (06:29)
[2019-04-24] MEDS: HYDROcodone/APAP 5/325 MG 1 TAB TAB PO PRN (06:30)
[2019-04-24] MEDS: BLOOD GLUCOSE MONITORING 1 DEV DEV FS SCH ×3 (06:33→21:00)
[2019-04-24 07:27] LABS: BASOPHILS % (AUTO) 0.2 % (0.0-2.0); LYMPHOCYTES # (AUTO) 0.6 K/uL (2.0-11.5); MONOCYTES # (AUTO) 0.3 K/uL (0.8-1.0)
--- NOTE | 2019-04-24 07:30 | NUR ---
REPORT GIVEN TO SENIA FOR CONTINUITY OF CARE, PT IN STABLE CONDITION.
--- NOTE | 2019-04-24 07:31 | NUR ---
RECEIVED ENDORSEMENT FROM MOTION AND TIME STUDY TEACHER NURSE. PATIENT IS AAOX4, HUNGARIAN SPEAKING. RESPIRATIONS ARE EVEN AND UNLABORED ON ROOM AIR. PATIENT DENIES ANY PAIN AT THIS TIME. RIGHT HAND 22G IV INTACT, PATENT, AND TKO. PLAN OF CARE WAS REVIEWED WITH PATIENT, PATIENT VERBALIZED UNDERSTANDING. SAFETY MEASURES IN PLACE, CALL LIGHT WITHIN REACH.
[2019-04-24 07:33] LABS: HEMATOCRIT 20.7 % (36-52); LYMPHOCYTES % (AUTO) 8.3 % (20.5-51.1); MEAN CORPUSCULAR HEMOGLOBIN 31 pg (27-31); MEAN CORPUSCULAR HGB CONC 34 g/dL (33-37); MEAN CORPUSCULAR VOLUME 92.8 fL (80-94); NEUTROPHILS # (AUTO) 6.1 K/uL (1.8-7.7); NEUTROPHILS % (AUTO) 87.5 % (42.2-75.2); PLATELET COUNT (AUTO) 157 K/uL (140-450); RED BLOOD CELL COUNT(AUTO) 2.23 MIL/uL (4.20-6.10); RED CELL DISTRIBUTION WIDTH 14.7 % (11.6-13.7)
[2019-04-24 07:40] LABS: ANION GAP 21.4 (8-16); CARBON DIOXIDE 15.8 mmol/L (21-32); MAGNESIUM 2.2 mg/dL (1.8-2.4); POTASSIUM 4.2 mmol/L (3.5-5.1)
[2019-04-24 08:00] VITALS: BP 128/62
[2019-04-24] MEDS: FERROUS SULFATE 325 MG TABEC PO SCH (08:13)
[2019-04-24] MEDS: CALCIUM ACETATE 667 MG TAB PO SCH ×3 (08:13→18:28)
[2019-04-24] MEDS: VIT-B COMP/VIT-C/FOLIC ACID 1 TAB PO SCH (08:16)
--- NOTE | 2019-04-24 08:20 | NUR ---
ADMINISTERED SCHEDULED MEDICATIONS. PATIENT TOLERATED WELL. PATIENT DENIES ANY PAIN AT THIS TIME, NO OTHER NEEDS AT THIS TIME.
[2019-04-24 08:34] LABS: CREATININE 6.8 mg/dL (0.7-1.3)
--- NOTE | 2019-04-24 08:46 | NUR ---
PATIENT HAS BEEN SCREENED AND CATEGORIZED HIGH NUTRITION RISK. PATIENT WILL BE SEEN WITHIN 1-2 DAYS OF ADMISSION. 04/23/19-04/24/19
--- NOTE | 2019-04-24 10:15 | NUR ---
PATIENT RESTING IN BED. PATIENT DENIES ANY PAIN AT THIS TIME. NO OTHER NEEDS AT THIS TIME. WILL CONTINUE TO MONITOR.
[2019-04-24] MEDS ORDERED: CALCIUM CARB/VIT-D 500 MG/200 IU 1 TAB PO SCH (10:22)
[2019-04-24] MEDS: SEVELAMER CARBONATE 800 MG TAB PO SCH ×2 (11:27→18:28)
--- NOTE | 2019-04-24 11:28 | NUR ---
PREOP CHECKLIST HAS BEEN DONE. PATIENT IS NPO. DR IS AT BEDSIDE DOING RIGHT HEEL DEBRIDEMENT. TIME OUT WAS DONE, CONSENT WAS OBTAINED PRIOR. PATIENTS QUESTIONS AND CONCERNS ANSWERED BY DR. LOPEZ.
[2019-04-24 12:00] VITALS: BP 127/66
--- NOTE | 2019-04-24 13:46 | NUR ---
04/24/19 RD INITIAL ASSESSMENT COMPLETED PLEASE REFER TO NUTRITION ASSESSMENT UNDER CARE ACTIVITY FOR ESTIMATED NUTRITIONAL NEEDS. RD RECOMMENDATIONS: 1. RECOMMEND CHANGING PTS DIET TO RENAL, CCHO 60 GM DIET D/T PT WITH ESRD AND DM. 2. RECOMMEND 220 MG OF ZINC SULFATE DAILY TO PROMOTE WOUND HEALING. 3. DM AND RENAL DIET EDUCATION WAS PROVIDED TO PT. 4. RD WILL F/U IN 3-5 DAYS; MODERATE RISK. BRAVO PRICE RD
--- NOTE | 2019-04-24 13:55 | NUR ---
PATIENT RESTING IN BED. PATIENT IS REQUESTING FOOD. PATIENT WAS EDUCATED ON IMPORTANCE ON STAYING NPO FOR PROCEDURE. PATIENT REQUESTED TO SPEAK WITH DR. HAS BEEN NOTIFIED.
--- NOTE | 2019-04-24 14:09 | NUR ---
PATIENT REFUSED JOE CATH. DR. OLEARY SPOKE WITH PATIENT. PATIENT STATED HE WANTED TO WAIT UNTIL FRIDAY. NO OTHER NEEDS AT THIS TIME.
[2019-04-24] MEDS ORDERED: MORPHINE SULFATE 4 MG/ML SYR IVP SCH (14:52)
[2019-04-24] MEDS ORDERED: OSMITROL 25% 12.5 GM/50 ML VIAL IV SCH (15:05)
[2019-04-24 15:10] LABS: FOLIC ACID 8.2 ng/mL (>3.0)
--- NOTE | 2019-04-24 15:11 | NUR ---
DR. CARROLL AT PATIENTS BEDSIDE FOR JOE CATHETER PLACEMENT. NO OTHER NEEDS AT THIS TIME.
--- NOTE | 2019-04-24 15:33 | NUR ---
DR. CARROLL USED HEPARIN FOR JOE CATH PLACEMENT. PER DR. CARROLL, LINE READY FOR USE. NO OTHER NEEDS AT THIS TIME.
[2019-04-24] MEDS: CLINDAMYCIN PHOS 600MG/D5W PM 50 ML IV SCH ×2 (15:50→23:00)
[2019-04-24 16:00] VITALS: BP 132/61
--- NOTE | 2019-04-24 17:00 | NUR ---
NEW IV BEGAN ON PATIENT. BEGAN BLOOD TRANSFUSION ON PATIENT.
--- NOTE | 2019-04-24 17:15 | NUR ---
PATIENT TOLERATING WELL, VS STABLE.
--- NOTE | 2019-04-24 17:30 | NUR ---
BLOOD STILL INFUSING, VS STABLE. NO NEEDS AT THIS TIME.
--- NOTE | 2019-04-24 18:30 | NUR ---
IV INFILTRATED. STOPPED BLOOD. BLOOD WAS WASTED. DR. TORRES IS AWARE. Addendum: 04/24/19 at 1858 by Nyla Laguna RN ONLY 100ML INFUSED
--- NOTE | 2019-04-24 19:19 | NUR ---
ENDORSED TO INKER MACHINE NURSE FOR CONTINUITY OF CARE. PATIENT IS STABLE AT THIS TIME.
--- NOTE | 2019-04-24 19:20 | NUR ---
RECEIVED REPORT FORM SENIA RN DAYSHIFT NURSE AT BEDSIDE FOR CONTINUITY OF CARE, PT IN STABLE CONDITION.
[2019-04-24 20:00] VITALS: BP 122/56
--- NOTE | 2019-04-24 20:00 | NUR ---
PT IN BED ALL FALLS PRECAUTIONS IN PLACE. PT HAS JOE CATH WITH DOUBLE LUMEN IN TACT ON RIGHT SIDE OF NECK. PT RIGHT FOOT DRESSING DRY, INTACT AND ELEVATED. PT HAS NO C/O OF PAIN AT THIS TIME. HE IS AOX4 V/S FOLLOWS T 97.6 P 66 R 18 B/P 122/56 02 98% ON ROOM AIR. ALL REQUESTED NEEDS ATTENDED AND CALL SUÁREZ IN REACH.
--- NOTE | 2019-04-24 20:24 | NUR ---
DR. SANDOVAL ORDERED 1 UNIT PACKED RED BLOOD CELLS TO BE GIVEN DURING DIALYSIS. OBTAINED CONSENT FOR DIALYSIS.
[2019-04-24] MEDS: HYDRAGUARD CREAM TP SCH (21:00)
--- NOTE | 2019-04-24 21:50 | NUR ---
DIALYSIS NURSE HERE ORDER AND LABS PRINTED FOR HER. CONSENT WAS SIGNED BY PT. DIALYSIS NURSE MADE AWARE OF BLOOD TRANSFUSION, HOWEVER, BLOOD WAS DRAWN FOR CROSS TYPE AND MATCH TO BE SENT TO [facility]. AWAITING RESULTS BEFORE BLOOD CAN BE GIVEN. HEMODIALYSIS IN PROGRESS. FINGERSTICK WAS 144 NO HUMALOG COVERAGE NEEDED. PT ALSO GIVEN ORDERED CIPRO PO FOR FOOT INFECTION. PT IN STABLE CONDITION NO C/O VOICED AT THIS TIME. ALL REQUESTED NEEDS ATTENDED AND CALL SUÁREZ IN REACH.
[2019-04-24] MEDS: CIPROFLOXACIN 250 MG TAB PO SCH (22:05)
--- NOTE | 2019-04-24 22:30 | NUR ---
IV ABT CLINDAMYCIN HELD DUE TO PT LACK OF IV ACCESS AND PT RECEIVING BLOOD TRANSFUSION AT THIS TIME.
[2019-04-24] MEDS ORDERED: OSMITROL 25% 12.5 GM/50 ML VIAL IV ONE (22:48)
[2019-04-25] VITALS: BP 169/69
[2019-04-25] MEDS ORDERED: FUROSEMIDE 20 MG TAB PO SCH
--- NOTE | 2019-04-25 00:30 | NUR ---
JANAK SPRINKLER REPAIR TECHNICIAN NURSE FINISHED HD FOR PT VIA JOE CATH. ACCORDING TO JANAK RN HD NURSE, SHE SAID THAT SHE DIDN'T GET ANY FLUID OUT AT THIS TIME, BUT THAT SHE WAS SCHEDULED TO PERFORM HD TOMORROW FOR PT AROUND 10 AM. CROSS TYPE MATCH NOT READY YET. HD NURSE AWARE OF ORDERED BLOOD TRANSFUSION AND SAID THAT SHE COULD HANG BLOOD TOMORROW DURING DIALYSIS. PT STABLE NO C/O OF PAIN OR DISTRESS , HOWEVER HE FELT TIRED AND REQUESTED SUPPLEMENTAL 02 ON. (PT STATING 97% ON ROOM AIR.. 02 PLACED AT PT REQUEST FOR COMFORT MEASURES). PT ALSO REQUEST SANDWICH FOR DIABETIC SNACK. PT CONSUMED 100%. PT ALSO REQUEST MORE BLANKETS WHICH WAS GIVEN TO HIM. V/S FOLLOWS T97.7 P 83 R 18 B/P 169/69 02 98% WITH 2 LITERS SUPPLEMENTAL 02 VIA N/C. PT NOT GIVEN PRE TRANSFUSION DRUGS OF TYLENOL AND BENADRYL DUE TO HOLD ON TRANSFUSION ( WAITING CROSS TYPE MATCH). CALL SUÁREZ INREACH AND REQUESTED NEEDS ATTENDED BY STAFF.
--- NOTE | 2019-04-25 02:10 | NUR ---
PAS FROM LAB CALLED TO SAY THAT CROSS TYPE MATCH DONE AND BLOOD IS READY. PAS INFORMED THAT PT HAS NO PERIPHERAL IV SITE AND PT IS A HARD STICK AND THAT PT WILL BE GIVEN BLOOD TRANSFUSION DURING DIALYSIS. ASKED PAS HOW LONG WILL THE BLOOD BE AVAILABLE FOR?. PAS SAID THAT PT WILL BE ABLE TO GET BLOOD WITH OUT THE PRE TRANSFUSION PROTOCOL UP UNTIL 930PM [facility] 04/25/19. MD TORRES MADE AWARE.
[2019-04-25 04:00] VITALS: BP 140/59
[2019-04-25] MEDS: ACETAMINOPHEN 325 MG TAB PO SCH ×2 (04:00)
[2019-04-25] MEDS: CLINDAMYCIN PHOS 600MG/D5W PM 50 ML IV SCH ×2 (06:50→14:48)
[2019-04-25] MEDS: BLOOD GLUCOSE MONITORING 1 DEV DEV FS SCH ×4 (06:53→20:56)
--- NOTE | 2019-04-25 07:10 | NUR ---
REPORT GIVEN TO SENIA RN DAYSHIFT NURSE AT BEDSIDE FOR CONTINUITY OF CARE, PT IN STABLE CONDITION.
--- NOTE | 2019-04-25 07:11 | NUR ---
RECEIVED ENDORSEMENT FROM [employer] PROCESSING TECHNICIAN NURSE. PATIENT IS AAOX4, EQUATORIAL GUINEAN AND ARABIC SPEAKING. RESPIRATIONS ARE EVEN AND UNLABORED ON ROOM AIR. PATIENT DENIES ANY PAIN AT THIS TIME. RIGHT UPPER NECK JOE CATH INTACT. PLAN OF CARE WAS REVIEWED WITH PATIENT, PATIENT VERBALIZED UNDERSTANDING. SAFETY MEASURES IN PLACE, CALL LIGHT WITHIN REACH.
[2019-04-25 07:41] LABS: BASOPHILS % (AUTO) 0.2 % (0.0-2.0); EOSINOPHILS # (AUTO) 0.1 K/uL (0-0.4); EOSINOPHILS % (AUTO) 1.8 % (0.0-4.0); LYMPHOCYTES # (AUTO) 0.6 K/uL (2.0-11.5); MEAN CORPUSCULAR HEMOGLOBIN 31 pg (27-31); MEAN CORPUSCULAR HGB CONC 34 g/dL (33-37); MEAN CORPUSCULAR VOLUME 91.7 fL (80-94); MONOCYTES # (AUTO) 0.4 K/uL (0.8-1.0); MONOCYTES % (AUTO) 7.1 % (1.7-9.3); NEUTROPHILS # (AUTO) 5.1 K/uL (1.8-7.7); PLATELET COUNT (AUTO) 164 K/uL (140-450); RED BLOOD CELL COUNT(AUTO) 2.16 MIL/uL (4.20-6.10); RED CELL DISTRIBUTION WIDTH 14.5 % (11.6-13.7); WHITE BLOOD COUNT (AUTO) 6.2 K/uL (4.8-10.8)
[2019-04-25 08:00] VITALS: BP 122/60
[2019-04-25 08:02] LABS: HEMATOCRIT 19.8 % (36-52); HEMOGLOBIN 6.7 g/dL (12.0-18.0)
[2019-04-25 08:07] LABS: MAGNESIUM 1.8 mg/dL (1.8-2.4); PHOSPHORUS 4.7 mg/dL (2.5-4.9)
[2019-04-25] MEDS: VIT-B COMP/VIT-C/FOLIC ACID 1 TAB PO SCH (08:14)
[2019-04-25] MEDS: CALCIUM CARB/VIT-D 500 MG/200 IU 1 TAB PO SCH (08:14)
[2019-04-25] MEDS: SEVELAMER CARBONATE 800 MG TAB PO SCH (08:14)
[2019-04-25] MEDS: FERROUS SULFATE 325 MG TABEC PO SCH (08:15)
[2019-04-25] MEDS: CALCIUM ACETATE 667 MG TAB PO SCH ×4 (08:15→16:57)
[2019-04-25] MEDS: HYDRAGUARD CREAM TP SCH ×2 (08:15→20:57)
--- NOTE | 2019-04-25 08:15 | NUR ---
ADMINISTERED SCHEDULED MEDICATIONS. PATIENT TOLERATED WELL. NO OTHER NEEDS AT THIS TIME, WILL CONTINUE TO MONITOR.
[2019-04-25 08:18] LABS: POTASSIUM 3.2 mmol/L (3.5-5.1)
[2019-04-25 08:22] LABS: ANION GAP 14.4 (8-16); CARBON DIOXIDE 27.8 mmol/L (21-32)
[2019-04-25 08:28] LABS: CREATININE 4.5 mg/dL (0.7-1.3)
[2019-04-25 08:36] LABS: LYMPHOCYTES % (AUTO) 9.5 % (20.5-51.1); NEUTROPHILS % (AUTO) 81.4 % (42.2-75.2)
[2019-04-25] MEDS ORDERED: POTASSIUM CHLORIDE 10 MEQ TABER PO SCH (08:48)
[2019-04-25] MEDS ORDERED: VANCOMYCIN PER PHARMACY MC PRN (08:50)
[2019-04-25] MEDS: HYDROcodone/APAP 5/325 MG 1 TAB TAB PO PRN (09:38)
[2019-04-25] MEDS ORDERED: VANCOMYCIN 1,250 MG in DEXTROSE 5% 250 ML IV SCH (10:00)
--- NOTE | 2019-04-25 10:01 | NUR ---
IV ACCESS WAS OBTAINED BY CHARGE NURSE SANDY. SCHEDULED MEDICATION WAS ADMINISTERED. PATIENT DENIES ANY PAIN AT THIS TIME. NO OTHER NEEDS AT THIS TIME, WILL CONTINUE TO MONITOR.
--- NOTE | 2019-04-25 10:15 | NUR ---
DIALYSIS NURSE AT BEDSIDE. PATIENT DENIES ANY PAIN AT THIS TIME. NO OTHER NEEDS AT THIS TIME, WILL CONTINUE TO MONITOR.
--- NOTE | 2019-04-25 10:16 | NUR ---
PER DR. HORNE, PUT ORDER FOR HD AND HAVE DIALYSIS NURSE CALL WHEN HERE.
--- NOTE | 2019-04-25 11:17 | NUR ---
OBTAINED 1 UNIT OF BLOOD AND GAVE TO HEMODIALYSIS NURSE. VERIFIED BLOOD WITH CAROL DAWKINS. PATIENT IS RESTING, NO OTHER NEEDS AT THIS TIME.
[2019-04-25 12:00] VITALS: BP 135/75
--- NOTE | 2019-04-25 12:15 | NUR ---
BLOOD TRANSFUSION COMPLETE, POST VS OBTAINED. NO ADVERSE REACTION NOTED. PATIENT IS RESTING, DENIES ANY PAIN AT THIS TIME. NO OTHER NEEDS AT THIS TIME. 500 ML OF BLOOD INFUSED.
[2019-04-25] MEDS: INSULIN LISPRO SLIDING SCALE 100 UNITS/ML VIAL SUBQ PRN ×2 (12:23→21:13)
--- NOTE | 2019-04-25 12:24 | NUR ---
SCHEDULED MEDICATION WAS ADMINISTERED. PATIENT TOLERATED WELL. DIALYSIS NURSE IS AT BEDSIDE. PATIENT DENIES ANY PAIN AT THIS TIME, NO OTHER NEEDS AT THIS TIME.
--- NOTE | 2019-04-25 13:49 | NUR ---
DIALYSIS COMPLETED. NO OUTPUT.
--- NOTE | 2019-04-25 14:40 | NUR ---
PATIENT SLEEPING, EASILY AROUSABLE. NO OTHER NEEDS AT THIS TIME, WILL CONTINUE TO MONITOR.
--- NOTE | 2019-04-25 14:50 | NUR ---
ADMINISTERED SCHEDULED MEDICATION. PATIENT TOLERATED WELL. DENIES ANY PAIN AT THIS TIME. NO OTHER NEEDS AT THIS TIME. WILL CONTINUE TO MONITOR.
[2019-04-25 16:00] VITALS: BP 146/60
--- NOTE | 2019-04-25 16:50 | NUR ---
PATIENT SLEEPING EASILY AROUSABLE. PATIENT DENIES ANY PAIN. NO OTHER NEEDS AT THIS TIME, WILL CONTINUE TO MONITOR.
--- NOTE | 2019-04-25 17:13 | NUR ---
ADMINISTERED SCHEDULED MEDICATION. PATIENT TOLERATED WELL. NO OTHER NEEDS AT THIS TIME. WILL CONTINUE TO MONITOR.
--- NOTE | 2019-04-25 19:23 | NUR ---
ENDORSED TO TRACK REPAIR LABORER NURSE NYLA FOR CONTINUITY OF CARE. PATIENT IS STABLE AT THIS TIME.
--- NOTE | 2019-04-25 19:24 | NUR ---
RECEIVED BEDSIDE REPORT FROM GER CONN. PT A/O X4. PERSON, PLACE, TIME AND EVENT. MACEDONIAN SPEAKING. ABLE TO MAKE NEEDS KNOWN. DISCUSSED PLAN OF CARE. VERBALIZED UNDERSTANDING. CONTACT PRECAUTIONS. FALL PRECAUTIONS IN PLACE. ROOM AIR. NO SIGNS OF RESP DISTRESS. SKIN IS NON INTACT. BLE DARK SKIN PIGMENTATION, MILITARY LAWYER. S/P R FOOT DEBRIDEMENT. DRESSING, CLEAN DRY AND INTACT. L AC 22G INFUSING SALINE LOCK. PATENT AND INTACT. CONTINENT. URINAL AT BEDSIDE. CHAIR FAST. DENIES PAIN. BED IN LOWEST POSITION. CALL LIGHT WITHIN REACH. WILL CONTINUE TO MONITOR.
[2019-04-25 20:00] VITALS: BP 154/64
--- NOTE | 2019-04-25 20:56 | NUR ---
BLOOD SUGAR 157. 2 UNITS OF HUMALOG SUB Q GIVEN. EDUCATED ON SIDE EFFECTS. VERBALIZED UNDERSTANDING. TOLERATED WELL. WILL CONTINUE TO MONITOR.
[2019-04-25] MEDS: CIPROFLOXACIN 250 MG TAB PO SCH (20:58)
--- NOTE | 2019-04-25 22:15 | NUR ---
PT IS SLEEPING IN BED. EASILY AROUSABLE. NO SIGNS OF DISTRESS. DENIES PAIN. CALL LIGHT WITHIN REACH. WILL CONTINUE TO MONITOR.
[2019-04-26] VITALS: BP 146/62
[2019-04-26] MEDS: CLINDAMYCIN PHOS 600MG/D5W PM 50 ML IV SCH ×3 (00:03→15:20)
--- NOTE | 2019-04-26 00:09 | NUR ---
ADMINISTERED SCHEDULED ANTIBIOTIC. EDUCATED ON SIDE EFFECTS. VERBALIZED UNDERSTANDING. WILL CONTINUE TO MONITOR.
--- NOTE | 2019-04-26 02:50 | NUR ---
PT STATES HE IS IN PAIN AND REQUESTS PAIN MED PRN. WILL ASSESS AND WILL MEDICATE. WILL CONTINUE TO MONITOR.
[2019-04-26] MEDS: HYDROcodone/APAP 5/325 MG 1 TAB TAB PO PRN ×3 (02:57→21:08)
--- NOTE | 2019-04-26 03:56 | NUR ---
PAIN REASSESSMENT. NO PAIN AT THIS TIME. NO SOB. NO COMPLAINTS. NO DISTRESS NOTED. WILL CONTINUE TO MONITOR.
[2019-04-26 04:00] VITALS: BP 132/63
--- NOTE | 2019-04-26 06:01 | NUR ---
PT IS AWAKE RESTING IN BED. NO SIGNS OF DISTRESS. NO SOB. NO PAIN AT THIS TIME. CALL LIGHT WITHIN REACH. WILL CONTINUE TO MONITOR.
[2019-04-26] MEDS: BLOOD GLUCOSE MONITORING 1 DEV DEV FS SCH ×4 (06:27→21:01)
--- NOTE | 2019-04-26 06:33 | NUR ---
BLOOD SUGAR 99. NO COVERAGE NEEDED
--- NOTE | 2019-04-26 06:53 | NUR ---
WILL ENDORSE PT TO DAYSHIFT RN FOR CONTINUITY OF CARE. PT IS IN STABLE CONDITION. VITALS ARE WNL. BED IN LOWEST POSITION. CALL LIGHT WITHIN REACH. WILL CONTINUE TO MONITOR.
--- NOTE | 2019-04-26 07:05 | NUR ---
RECEIVED ENDORSEMENT FROM NUCLEAR MEDICINE SUPERVISOR NURSE NYLA. PATIENT IS AAOX4, HUNGARIAN SPEAKING AND IRISH SPEAKING. PATIENT DENIES ANY PAIN AT THIS TIME. RESPIRATIONS ARE EVEN AND UNLABORED ON ROOM AIR. LEFT HAND 22G IV INTACT AND PATENT. RIGHT UPPER JOE NOTED. PLAN OF CARE WAS REVIEWED WITH PATIENT, PATIENT VERBALIZED UNDERSTANDING. SAFETY MEASURES IN PLACE, CALL LIGHT WITHIN REACH.
[2019-04-26 07:39] LABS: CARBON DIOXIDE 27.1 mmol/L (21-32); CREATININE 0.9 mg/dL (0.7-1.3); POTASSIUM 4.1 mmol/L (3.5-5.1)
[2019-04-26 07:40] LABS: BASOPHILS % (AUTO) 0.1 % (0.0-2.0); HEMOGLOBIN 12.6 g/dL (12.0-18.0); LYMPHOCYTES # (AUTO) 0.7 K/uL (2.0-11.5); LYMPHOCYTES % (AUTO) 7.5 % (20.5-51.1); MEAN CORPUSCULAR HEMOGLOBIN 29 pg (27-31); MEAN CORPUSCULAR HGB CONC 33 g/dL (33-37); MEAN CORPUSCULAR VOLUME 88.7 fL (80-94); MONOCYTES # (AUTO) 0.3 K/uL (0.8-1.0); MONOCYTES % (AUTO) 3.4 % (1.7-9.3); NEUTROPHILS # (AUTO) 8.1 K/uL (1.8-7.7); PLATELET COUNT (AUTO) 182 K/uL (140-450); RED BLOOD CELL COUNT(AUTO) 4.29 MIL/uL (4.20-6.10); RED CELL DISTRIBUTION WIDTH 13.7 % (11.6-13.7); WHITE BLOOD COUNT (AUTO) 9.1 K/uL (4.8-10.8)
[2019-04-26 07:52] LABS: PHOSPHORUS 2.1 mg/dL (2.5-4.9)
[2019-04-26 08:00] VITALS: BP 129/62
[2019-04-26] MEDS: FERROUS SULFATE 325 MG TABEC PO SCH (08:24)
[2019-04-26] MEDS: CALCIUM CARB/VIT-D 500 MG/200 IU 1 TAB PO SCH (08:24)
[2019-04-26] MEDS: VIT-B COMP/VIT-C/FOLIC ACID 1 TAB PO SCH (08:24)
[2019-04-26] MEDS: CALCIUM ACETATE 667 MG TAB PO SCH ×2 (08:24→12:17)
[2019-04-26] MEDS: HYDRAGUARD CREAM TP SCH ×2 (08:24→21:01)
--- NOTE | 2019-04-26 08:25 | NUR ---
ADMINISTERED SCHEDULED MEDICATIONS. PATIENT TOLERATED WELL. PATIENT DENIES ANY PAIN AT THIS TIME. NO OTHER NEEDS AT THIS TIME, WILL CONTINUE TO MONITOR. Addendum: 04/26/19 at 1821 by Nyla Laguna RN REINFORCED INSTRUCTIONS TO PATIENT TO NOT TO GET UP WITHOUT CALLING FOR ASSISTANCE.
--- NOTE | 2019-04-26 09:05 | NUR ---
WOUND CARE RE- EVALUATION NOT DONE, SPOKE TO PRIMARY RN, PT. WAS SEEN BY PODIATRY THIS AM WITH INSTRUCTIONS , WILL CONTINUE TO FOLLOW SENIOR UNDERWRITING ASSISTANT ORDERS.
[2019-04-26 09:37] LABS: BASOPHILS % (AUTO) 0.1 % (0.0-2.0); EOSINOPHILS # (AUTO) 0.2 K/uL (0-0.4); EOSINOPHILS % (AUTO) 3.4 % (0.0-4.0); HEMATOCRIT 22.4 % (36-52); HEMOGLOBIN 7.6 g/dL (12.0-18.0); LYMPHOCYTES # (AUTO) 0.6 K/uL (2.0-11.5); LYMPHOCYTES % (AUTO) 9.2 % (20.5-51.1); MEAN CORPUSCULAR HEMOGLOBIN 31 pg (27-31); MEAN CORPUSCULAR HGB CONC 34 g/dL (33-37); MEAN CORPUSCULAR VOLUME 91.9 fL (80-94); MONOCYTES # (AUTO) 0.5 K/uL (0.8-1.0); MONOCYTES % (AUTO) 8.4 % (1.7-9.3); NEUTROPHILS # (AUTO) 4.9 K/uL (1.8-7.7); NEUTROPHILS % (AUTO) 78.9 % (42.2-75.2); PLATELET COUNT (AUTO) 168 K/uL (140-450); RED BLOOD CELL COUNT(AUTO) 2.44 MIL/uL (4.20-6.10); RED CELL DISTRIBUTION WIDTH 14.7 % (11.6-13.7); WHITE BLOOD COUNT (AUTO) 6.2 K/uL (4.8-10.8)
--- NOTE | 2019-04-26 10:23 | NUR ---
PATIENT RESTING IN BED. PATIENT DENIES ANY PAIN AT THIS TIME. NO OTHER NEEDS AT THIS TIME, WILL CONTINUE TO MONITOR.
[2019-04-26 12:00] VITALS: BP 143/66
--- NOTE | 2019-04-26 12:05 | NUR ---
PATIENT RESTING IN BED WATCHING TV. NO OTHER NEEDS AT THIS TIME, WILL CONTINUE TO MONITOR.
--- NOTE | 2019-04-26 13:50 | NUR ---
PATIENT STATED THAT HIS SKIN FELT TOO DRY, PROVIDED PATIENT WITH LOTION FOR SKIN. PATIENT DENIES ANY PAIN AT THIS TIME. NO OTHER NEEDS AT THIS TIME, WILL CONTINUE TO MONITOR.
--- NOTE | 2019-04-26 15:20 | NUR ---
ADMINISTERED SCHEDULED MEDICATION. PATIENT TOLERATED WELL. NO OTHER NEEDS AT THIS TIME, WILL CONTINUE TO MONITOR.
--- NOTE | 2019-04-26 15:42 | NUR ---
Discharge Planning Note JESSICA called [facility] Kat [phone] to coordinate discharge plan for SNF. JESSICA faxed clinical information to [facility] [phone]. Kat recommended SW to fax clinical information to [facility] [phone]. Maria E from [facility] [phone] stated that clinical information was reviewed and a bed would be available for patient. Per Dr. Shore, JESSICA informed Maria E that tentative discharge date would be 04/27/2019-04/28/2019. Maria E requested a phone call once patient is ready for discharge. JESSICA will follow up as needed.
[2019-04-26 16:00] VITALS: BP 146/70
--- NOTE | 2019-04-26 16:32 | NUR ---
PATIENT RESTING IN BED. PATIENT DENIES ANY PAIN, NO OTHER NEEDS AT THIS TIME.
--- NOTE | 2019-04-26 18:01 | NUR ---
PATIENT SITTING UP IN BED EATING DINNER. NO OTHER NEEDS AT THIS TIME.
--- NOTE | 2019-04-26 19:24 | NUR ---
ENDORSED TO COMMUNICATION ANALYST NURSE STEVEN FOR CONTINUITY OF CARE. PATIENT IS STABLE AT THIS TIME.
--- NOTE | 2019-04-26 19:25 | NUR ---
RECEIVED BEDSIDE REPORT FROM AM SHIFT RN SENIA, FOR PATIENT'S CONTINUITY OF CARE. PATIENT IS ASLEEP, WITH NO SIGNS OF DISTRESS. PATIENT IS ON CONTACT PRECAUTION FOR RIGHT HEEL DIABETIC ULCER/WOUND, ON ROOM AIR, HAS A LEFT HAND 22G IV RUNNING WITH NORMAL SALINE AT 5ML/HR, HAS A RIGHT HEEL DIABETIC ULCER WITH DRESSING IN PLACE. BED IS IN LOW POSITION, SIDE RAILS ARE UP, AND CALL LIGHT IS WITHIN REACH. WILL MONITOR PATIENT THROUGHOUT SHIFT.
--- NOTE | 2019-04-26 21:08 | NUR ---
ADMINISTERED HYDRAGUARD MEDICATION ON BLE ORDERED. CHECKED BLOOD SUGAR - 127, NO COVERAGE NEEDED. GAVE PM SNACK. PATIENT COMPLAINED OF RIGHT FOOT PAIN 6/10, ADMINISTERED PO PAIN MEDICATION ORDERED. PATIENT TOLERATED THEM WELL. INSTRUCTED PATIENT REGARDING NPO AFTER MIDNIGHT, DT POSSIBLE PLACEMENT OF TUNNELED CATH IN AM. PATIENT VERBALIZED UNDERSTANDING, REQUESTED IF HE COULD HAVE SMALL SNACK AGAIN BEFORE MIDNIGHT. REMINDED PATIENT REGARDING STOOL SAMPLE COLLECTION. WILL CONTINUE TO MONITOR PATIENT.
--- NOTE | 2019-04-26 21:43 | NUR ---
CONTACT ISOLATION PRECAUTION TAKEN DOWN, PER TARGET WORKER, + [employer] NOT INDICATION FOR ISOLATION. CHANGED TO STANDARD. PATIENT LYING DOWN IN BED, AWAKE, WATCHING TV.
[2019-04-27] VITALS: BP 147/67
--- NOTE | 2019-04-27 | NUR ---
VITAL SIGNS CHECKED AND CHARTED. PATIENT DENIES PAIN AT THIS TIME. REMINDED PATIENT RE: STOOL COLLECTION. WILL CONTINUE TO MONITOR PATIENT.
--- NOTE | 2019-04-27 03:00 | NUR ---
ASSISTED PATIENT TO RESTROOM, STOOL SAMPLE COLLECTED AND SENT TO LAB, PATIENT TOLERATED THE ACTIVITY WELL. REARRANGED BEDDINGS. WILL CONTINUE TO MONITOR PATIENT
--- NOTE | 2019-04-27 04:30 | NUR ---
PATIENT REQUESTED TO CHECK BLOOD GLUCOSE - 103, PT VOICED OUT CONCERN RE: GLUCOSE GOING LOW BEFORE HIS PROCEDURE IS DONE. EXPLAINED TO PATIENT THAT GLUCOSE WILL BE CHECKED AGAIN BEFORE 0630, AND THERE IS A STANDBY MEDICATION TO GIVE FOR LOW BLOOD GLUCOSE. NOTIFIED MD OF PT'S CONCERN. NO NEW ORDERS AT THIS TIME. WILL CONTINUE TO MONITOR PATIENT.
[2019-04-27] MEDS: BLOOD GLUCOSE MONITORING 1 DEV DEV FS SCH ×4 (06:19→21:54)
[2019-04-27] MEDS: HYDROcodone/APAP 5/325 MG 1 TAB TAB PO PRN ×3 (06:33→19:41)
--- NOTE | 2019-04-27 06:33 | NUR ---
PATIENT COMPLAINS OF RIGHT FOOT/HEEL PAIN OF 6/10. ADMINISTERED PO PAIN MEDICATION ORDERED. WILL CONTINUE TO MONITOR PATIENT.
[2019-04-27 07:30] LABS: BASOPHILS % (AUTO) 0.3 % (0.0-2.0); EOSINOPHILS # (AUTO) 0.4 K/uL (0-0.4); EOSINOPHILS % (AUTO) 5.7 % (0.0-4.0); HEMATOCRIT 22.5 % (36-52); HEMOGLOBIN 7.5 g/dL (12.0-18.0); LYMPHOCYTES # (AUTO) 0.8 K/uL (2.0-11.5); LYMPHOCYTES % (AUTO) 12.3 % (20.5-51.1); MEAN CORPUSCULAR HEMOGLOBIN 31 pg (27-31); MEAN CORPUSCULAR HGB CONC 34 g/dL (33-37); MEAN CORPUSCULAR VOLUME 92.7 fL (80-94); MONOCYTES # (AUTO) 0.4 K/uL (0.8-1.0); MONOCYTES % (AUTO) 6.4 % (1.7-9.3); NEUTROPHILS # (AUTO) 4.9 K/uL (1.8-7.7); NEUTROPHILS % (AUTO) 75.3 % (42.2-75.2); PLATELET COUNT (AUTO) 171 K/uL (140-450); RED BLOOD CELL COUNT(AUTO) 2.43 MIL/uL (4.20-6.10); RED CELL DISTRIBUTION WIDTH 14.4 % (11.6-13.7); WHITE BLOOD COUNT (AUTO) 6.6 K/uL (4.8-10.8)
--- NOTE | 2019-04-27 07:30 | NUR ---
ENDORSED PATIENT TO AM SHIFT CAROL VAUGHN, FOR PATIENT'S CONTINUITY OF CARE. PATIENT IS AWAKE, DR. LLOYD WAS AT BEDSIDE, PERFORMED WOUND CARE, INSTRUCTED THAT PT SHOULD BE ON STRICT NON-WEIGHT BEARING ON RIGHT FOOT. PATIENT AWARE OF PROCEDURE FOR DIALYSIS CATH PLACEMENT, CONSENT SIGNED AND PLACED IN CHART. PATIENT IS IN STABLE CONDITION AT THIS TIME.
--- NOTE | 2019-04-27 07:50 | NUR ---
HAND OFF REPORT RECEIVED FROM FAST FOOD DELIVERY DRIVER NURSE PT IS AWAKE IN BED ALL SAFETY MEASURES ARE IN PLACE WILL CONTINUE TO MONITOR.
[2019-04-27 07:55] LABS: ANION GAP 12.3 (8-16); CARBON DIOXIDE 27.7 mmol/L (21-32)
[2019-04-27 08:04] LABS: CREATININE 4.9 mg/dL (0.7-1.3)
[2019-04-27] MEDS ORDERED: AMOXIL/CLAVULANATE 500/125 MG 1 TAB PO SCH ×2 (08:30→14:30)
--- NOTE | 2019-04-27 08:36 | NUR ---
PT COMPLAINTS ABOUT BEING NPO PT STATED THAT HE IS FEELING WEAK AND THINKS HIS BLOOD SUGAR IS TOO LOW. FINGERSTICK GLUCOSE 91 SPOKE WITH ABOUT SWITCHING NS IVF TO D5W
[2019-04-27] MEDS: CALCIUM CARB/VIT-D 500 MG/200 IU 1 TAB PO SCH (08:49)
[2019-04-27] MEDS: FERROUS SULFATE 325 MG TABEC PO SCH (08:49)
[2019-04-27] MEDS: VIT-B COMP/VIT-C/FOLIC ACID 1 TAB PO SCH (08:49)
[2019-04-27] MEDS: DEXT 5% /NACL 0.9% 1,000 ML IV SCH (08:50)
[2019-04-27] MEDS: HYDRAGUARD CREAM TP SCH ×2 (09:00→22:12)
--- NOTE | 2019-04-27 09:00 | NUR ---
ADMINISTERED PT MORNING MEDICATIONS. HUNG IVF D5NS AT 30ML/HR PER ORDERED BY DR. OLEARY. WILL CONTINUE TO MONITOR PT FOR S/S OF ELEVATED OR DECREASED BLOOD SUGAR
--- NOTE | 2019-04-27 09:12 | NUR ---
SPOKE WITH HONORIO AUGMENTIN NOT AVAILABLE IN THE DOSE ORDERED. HONORIO STATED WE ARE WAITING FOR AUGMENTIN DOSE FROM [facility]
[2019-04-27] MEDS: LIDOCAINE 1% 500 MG/50 ML VIAL ONE ×2 (11:37→15:06)
[2019-04-27] MEDS: BUPIVACAINE-MPF/EPI 0.25% 30 ML VIAL INJ ONE ×2 (11:38→12:40)
[2019-04-27] MEDS ORDERED: ceFAZolin 1,000 MG VIAL ONE (11:38)
--- NOTE | 2019-04-27 11:40 | NUR ---
PT TAKEN OFF THE UNIT FOR PROCEDURE. OR NURSE CUMMINS TOOK PT PT WAS STABLE AND IN NO APPARENT DISTRESS. ALL SAFETY MEASURES ARE IN PLACE
[2019-04-27 12:00] VITALS: BP 121/81
[2019-04-27] MEDS ORDERED: fentaNYL 0.05 MG/ML VIAL ONE (12:06)
[2019-04-27] MEDS ORDERED: MIDAZOLAM 2 MG/2 ML VIAL ONE (12:06)
[2019-04-27] MEDS: NACL 0.9% 1,000 ML IV SCH (12:28)
[2019-04-27] MEDS ORDERED: diphenhydrAMINE 50 MG/ML VIAL IVP PRN (12:30)
[2019-04-27] MEDS ORDERED: ONDANSETRON 4 MG/2 ML VIAL IVP PRN (12:30)
[2019-04-27] MEDS: THERAHONEY GEL 42.5 GM TP SCH (13:00)
--- NOTE | 2019-04-27 14:20 | NUR ---
PT ARRIVED BACK ON UNIT PT APPEARS STABLE AND IN NO APPARENT DISTRESS. ALL SAFETY MEASURES ARE IN PLACE VITAL SIGNS ARE STABLE WILL CONTINUE TO MONITOR.
--- NOTE | 2019-04-27 15:52 | NUR ---
SW was contacted by James from [facility] [phone]. James stated that patient would be accepted and that [facility] would contact patient after discharge. JESSICA also was contacted by Joanna from [facility] [phone]. Joanna stated she would review the clinical information and would request additional information from JESSICA if needed. JESSICA/TERESA will follow up as needed.
[2019-04-27] MEDS: INSULIN LISPRO SLIDING SCALE 100 UNITS/ML VIAL SUBQ PRN (17:52)
--- NOTE | 2019-04-27 19:43 | NUR ---
ENDORSED PT TO PM RN PT APPEARS STABLE AND IN NO APPARENT DISTRESS. ALL SAFETY MEASURES ARE IN PLACE WILL CONTINUE TO MONITOR.
--- NOTE | 2019-04-27 19:44 | NUR ---
RECEIVED PT FROM PREVIOUS NURSE AT BEDSIDE W/ NS AT 120ML/HR INFUSING WELL ON LEFT HAND G 22. PT HAS RIGHT JOE CATH NEWLY PLACED THIS AM. PLACED PT IN COMFORTABLE POSITION;CALL LIGHT WITHIN REACH; FALL RISK IN PLACE
[2019-04-27 20:00] VITALS: BP 126/60
--- NOTE | 2019-04-27 21:45 | NUR ---
PT ABLE TO MOVE FROM SIDE TO SIDE; OFF LOADED PRESSURE ON RIGHT FOOT
--- NOTE | 2019-04-28 00:42 | NUR ---
PT C.O OF R JOE CATH PAIN POST INSERTION THIS AM. WITH SWELLING. DR. GOLD AT BEDSIDE NOW TO ASSESS PT
[2019-04-28] MEDS ORDERED: oxyCODONE/APAP 5/325 MG 1 TAB TAB PO SCH (01:00)
--- NOTE | 2019-04-28 01:16 | NUR ---
CALLED [id number] NURSEGHADA TO FOLLOW UP DIALYSIS YODAY ORDERED BY DR. MONACO FISHER DIVER NET. DIALYSIS NURSE CONFORMED THAT PT IS TO BE DISCHARGED TODAY 04/28 AND PER CM WILL HAVE DIALYSIS OUTPATIENT ARRANGED. HOSPITAL IS NOT GOING TO HAVE DIALYSIS TODAY
[2019-04-28] MEDS: NACL 0.9% 1,000 ML IV SCH ×2 (02:59→05:46)
[2019-04-28 04:00] VITALS: BP 123/57
[2019-04-28] MEDS: BLOOD GLUCOSE MONITORING 1 DEV DEV FS SCH ×4 (05:45→19:51)
--- NOTE | 2019-04-28 05:58 | NUR ---
PT C/O PAIN ON R JOE CATH PT GIVEN NORCO ORDERED
[2019-04-28] MEDS: HYDROcodone/APAP 5/325 MG 1 TAB TAB PO PRN (05:59)
--- NOTE | 2019-04-28 06:56 | NUR ---
PT STABLE AT THIS TIME NO COMPLAINTS OF PAIN FOR NOW. WILL ENDORSE TO CONTINUE TO MONITOR R JOE CATH SITE FOR PAIN OR POSSIBLE SWELLING
[2019-04-28 07:19] LABS: BASOPHILS % (AUTO) 0.3 % (0.0-2.0); EOSINOPHILS # (AUTO) 0.5 K/uL (0-0.4); HEMATOCRIT 22.9 % (36-52); HEMOGLOBIN 7.9 g/dL (12.0-18.0); LYMPHOCYTES # (AUTO) 0.9 K/uL (2.0-11.5); LYMPHOCYTES % (AUTO) 13.3 % (20.5-51.1); MEAN CORPUSCULAR HEMOGLOBIN 32 pg (27-31); MEAN CORPUSCULAR HGB CONC 34 g/dL (33-37); MEAN CORPUSCULAR VOLUME 93.1 fL (80-94); MONOCYTES # (AUTO) 0.4 K/uL (0.8-1.0); MONOCYTES % (AUTO) 6.5 % (1.7-9.3); NEUTROPHILS # (AUTO) 4.7 K/uL (1.8-7.7); NEUTROPHILS % (AUTO) 72.9 % (42.2-75.2); PLATELET COUNT (AUTO) 181 K/uL (140-450); RED BLOOD CELL COUNT(AUTO) 2.46 MIL/uL (4.20-6.10); RED CELL DISTRIBUTION WIDTH 14.6 % (11.6-13.7); WHITE BLOOD COUNT (AUTO) 6.5 K/uL (4.8-10.8)
--- NOTE | 2019-04-28 07:25 | NUR ---
RECEIVED HAND OFF REPORT FROM ELECTRICAL ENGINEERING TECHNICIAN NURSE PT IS AWAKE IN BED PT APPEARS STABLE AND IN NO APPARENT DISTRESS. ALL SAFETY MEASURES ARE IN PLACE WILL CONTINUE TO MONITOR.
[2019-04-28 07:35] LABS: ANION GAP 14.2 (8-16); CARBON DIOXIDE 25.3 mmol/L (21-32); POTASSIUM 4.5 mmol/L (3.5-5.1)
[2019-04-28 07:46] LABS: CREATININE 5.2 mg/dL (0.7-1.3)
[2019-04-28] MEDS: DEXT 5% /NACL 0.9% 1,000 ML IV SCH (08:35)
--- NOTE | 2019-04-28 08:57 | NUR ---
JESSICA was contacted by Joanna from [facility]. Joanna stated that patient was admitted to be seen at [address] [place] [address] on Tuesdays, , and Saturdays at 9:45AM. Joanna requested Hep Panel and Catheter Report to be faxed to [phone]. JESSICA informed Joanna that Hep Panel is still pending and will be faxed when they are available. JESSICA informed patient of admission. Patient verbalized understanding.
[2019-04-28] MEDS: CALCIUM CARB/VIT-D 500 MG/200 IU 1 TAB PO SCH (09:16)
[2019-04-28] MEDS: VIT-B COMP/VIT-C/FOLIC ACID 1 TAB PO SCH (09:16)
[2019-04-28] MEDS: HYDRAGUARD CREAM TP SCH ×2 (09:17→20:10)
[2019-04-28] MEDS: oxyCODONE/APAP 5/325 MG 1 TAB TAB PO PRN ×3 (09:17→23:02)
[2019-04-28] MEDS: FERROUS SULFATE 325 MG TABEC PO SCH (09:17)
[2019-04-28] MEDS: AMOXIL/CLAVULANATE 500/125 MG 1 TAB PO SCH (09:17)
--- NOTE | 2019-04-28 09:45 | NUR ---
FREQUENT ROUNDING ON PT PT IV SITE NOT INTACT. WILL ATTEMPT NEW IV SITE.
--- NOTE | 2019-04-28 10:45 | NUR ---
CALLED [facility] DIALYSIS NURSE TO INFORM HER OF DIALYSIS ORDERED FOR TODAY SHE STATED SHE WILL SEND SOMEONE
--- NOTE | 2019-04-28 12:02 | NUR ---
IV SITE STARTED IN RIGHT FOREARM 22G. FLUSHED AND PATENT ALL SAFETY MEASURES ARE IN PLACE WILL CONTINUE TO MONITOR.
[2019-04-28 12:12] LABS: HEPATITIS A ANTIBODY IGM Negative (Negative); HEPATITIS B CORE AB TOTAL Negative (Negative); HEPATITIS B SURFACE ANTIBODY Reactive (.); HEPATITIS B SURFACE ANTIGEN Negative (Negative)
[2019-04-28] MEDS: THERAHONEY GEL 42.5 GM TP SCH (13:17)
--- NOTE | 2019-04-28 13:45 | NUR ---
FREQUENT ROUNDING ON PT PT APPEARS STABLE AND IN NO APPARENT DISTRESS. ALL SAFETY MEASURES ARE IN PLACE WILL CONTINUE TO MONITOR.
[2019-04-28] MEDS: MORPHINE SULFATE 2 MG/ML SYR IVP PRN ×2 (14:07→20:10)
--- NOTE | 2019-04-28 14:07 | NUR ---
04/28/19 RD FOLLOW UP COMPLETED PLEASE REFER TO NUTRITION ASSESSMENT UNDER CARE ACTIVITY FOR ESTIMATED NUTRITIONAL NEEDS. 1. RECOMMEND CHANGING PTS DIET TO RENAL, CCHO 60 GM DIET D/T PT WITH ESRD AND DM 2. ADDITIONAL RENAL DIET EDUCATION WAS PROVIDED TO PT 3. RD WILL F/U IN 3-5 DAYS; MODERATE RISK JOURDAN BEAN RD
--- NOTE | 2019-04-28 14:41 | NUR ---
Discharge Planning Note: JESSICA spoke with Joanna from [facility] and faxed Hep Panel and Catheter Report to [phone]. Joanna stated that she received required documents. Joanna [phone] contacted JESSICA again to verify if patient was seen at [facility] in [phone]. JESSICA verified with patient that he was receiving dialysis at the [place] location during that time. Joanna verbalized understanding. JESSICA will follow up as needed.
--- NOTE | 2019-04-28 15:40 | NUR ---
DIALYSIS NURSE AT PT BEDSIDE WILL BEGIN DIALYSIS SOON
[2019-04-28 16:00] VITALS: BP 171/74
--- NOTE | 2019-04-28 17:00 | NUR ---
FINGERSTICK GLUCOSE 138 NO COVERAGE NEEDED ALL SAFETY MEASURES ARE IN PLACE WILL CONTINUE TO MONITOR
--- NOTE | 2019-04-28 19:20 | NUR ---
ENDORSED PT TO PM RN PT IS STABLE AND IN NO APPARENT DISTRESS. ALL SAFETY MEASURES ARE IN PLACE.
--- NOTE | 2019-04-28 19:23 | NUR ---
RECEIVED BEDSIDE REPORT FROM DAY RN. PT IS AAOX4 ON ROOM AIR. RESPIRATIONS ARE EQUAL AND UNLABORED. IV ON R FA 22G IVF INFUSING PER ORDERS. PATIENT NEWLY INSERTED QUITON CATH ON R CHEST 04/27. HD TODAY WITH NO OUTPUT PER RN. RESTAURANT SERVICE MANAGER SAW PT ON 04/27 AND PERFORMED WOUND DRESSING CHANGE. DRESSING ON R FOOT IS C/D/I. PLAN OF CARE DISCUSSED WITH PT. CALL LIGHT IS WITHIN REACH. WILL ROUND FREQUENTLY.
--- NOTE | 2019-04-28 20:10 | NUR ---
ADMINISTERED MORPHINE FOR PAIN 07/15 NECK. PT SATES IT BEEN GOING ON FOR ONE DAY AND PAIN MEDICATION ONLY HELPS FOR AN HOUR AND COMES BACK SHARP AND SEVERE. PT WOULD LIKE TO SPEAK WITH DOCTOR. EXPLAINED TO PATIENT HE HAS SEVERAL PAIN MEDICATIONS IF IT DOESN'T WORK ILL LET DOCTORS KNOW. BUT STATES WANTS TO TALK TO THEM. DR EAST MADE AWARE.
--- NOTE | 2019-04-28 20:30 | NUR ---
DOCTOR IN TO SEE PT. WILL F/U WITH ANY NEW ORDERS.
--- NOTE | 2019-04-28 23:00 | NUR ---
GAVE PATIENT A TUNA SANDWICH UPON REQUEST. NO S/S OF DISTRESS. CALL LIGHT IS WITHIN REACH. WILL CONTINUE TO MONITOR.
[2019-04-29] VITALS: BP 149/71
--- NOTE | 2019-04-29 00:05 | NUR ---
VITAL SIGNS ARE WITHIN NORMAL LIMITS. NO S/S OF DISTRESS. ALL NEEDS MET AT THIS TIME. CALL LIGHT IS WITHIN REACH. WILL CONTINUE TO MONITOR.
--- NOTE | 2019-04-29 02:30 | NUR ---
PATIENT IS SLEEPING COMFORTABLY IN BED. SAFETY MEASURES ARE IN PLACE. CALL LIGHT WITHIN REACH.
[2019-04-29] MEDS: MORPHINE SULFATE 2 MG/ML SYR IVP PRN ×2 (03:20→09:59)
--- NOTE | 2019-04-29 05:02 | NUR ---
ENDORSED TO KETAN PHILIPPE PT IN STABLE CONDITION.
--- NOTE | 2019-04-29 05:03 | NUR ---
REPORT RECEIVED FROM LEXA MEDINA. PT IN STABLE CONDITION. AAOX4. NO COMPLAINTS OF PAIN. NO SOB. AFEBRILE. IV SITE R FA 22G RUNNING D5NS@30ML/HR PATENT AND INTACT. SKIN WARM, DRY, AND NOT INTACT DUE TO R FOOT WOUND. WOUND CARE ALREADY COMPLETED. PT IS ON BEDREST. BED LOCKED IN LOW POSITION. CALL SUÁREZ WITHIN REACH. SAFETY PRECAUTION IN PLACE. ALL NEEDS MET AT THIS TIME.
[2019-04-29] MEDS: BLOOD GLUCOSE MONITORING 1 DEV DEV FS SCH ×3 (05:05→16:51)
--- NOTE | 2019-04-29 05:05 | NUR ---
BS 81. NO INSULIN COVERAGE NEEDED.
[2019-04-29 06:17] LABS: MAGNESIUM 1.6 mg/dL (1.8-2.4); PHOSPHORUS 4.2 mg/dL (2.5-4.9)
[2019-04-29 06:37] LABS: ANION GAP 11.1 (8-16); CARBON DIOXIDE 27.9 mmol/L (21-32)
[2019-04-29 06:48] LABS: CREATININE 4.1 mg/dL (0.7-1.3)
--- NOTE | 2019-04-29 06:48 | NUR ---
LAB CALLED IN CRITICAL VALUE CR 4.1. DOWN TRENDING.
[2019-04-29 07:08] LABS: BASOPHILS % (AUTO) 0.3 % (0.0-2.0); EOSINOPHILS # (AUTO) 0.4 K/uL (0-0.4); EOSINOPHILS % (AUTO) 7.3 % (0.0-4.0); HEMATOCRIT 22.6 % (36-52); HEMOGLOBIN 7.7 g/dL (12.0-18.0); LYMPHOCYTES # (AUTO) 0.9 K/uL (2.0-11.5); LYMPHOCYTES % (AUTO) 15.3 % (20.5-51.1); MEAN CORPUSCULAR HEMOGLOBIN 32 pg (27-31); MEAN CORPUSCULAR HGB CONC 34 g/dL (33-37); MEAN CORPUSCULAR VOLUME 93.1 fL (80-94); MONOCYTES # (AUTO) 0.5 K/uL (0.8-1.0); MONOCYTES % (AUTO) 8.3 % (1.7-9.3); NEUTROPHILS # (AUTO) 3.9 K/uL (1.8-7.7); NEUTROPHILS % (AUTO) 68.8 % (42.2-75.2); PLATELET COUNT (AUTO) 170 K/uL (140-450); RED BLOOD CELL COUNT(AUTO) 2.43 MIL/uL (4.20-6.10); RED CELL DISTRIBUTION WIDTH 14.9 % (11.6-13.7); WHITE BLOOD COUNT (AUTO) 5.7 K/uL (4.8-10.8)
--- NOTE | 2019-04-29 07:15 | NUR ---
REPORT GIVEN TO AM NURSE AT BEDSIDE. PT IN STABLE CONDITION.
--- NOTE | 2019-04-29 07:20 | NUR ---
RECEIVED PT FROM ICT SALES REPRESENTATIVE NURSE, PT IS AWAKE AND SEATED ON THE BED WITH IV LINE ON THE RT FA G. 22 WITH D5 NS INFUSING AT 30ML/HR, DIALYSIS PORT JOE CATH WAS IN PLACE IN THE RT UPPER CHEST, SIDE RAILS ARE UP AND CALL LIGHT WITHIN REACH, FALL AND SAFETY PRECAUTION ENFORCED, PT DENIES PAIN AND NO SIGN OF DISTRESS NOTED. WILL MONITOR PT.
[2019-04-29 08:00] VITALS: BP 157/88
[2019-04-29] MEDS ORDERED: HUMSLIDE SUBQ (08:01)
[2019-04-29] MEDS ORDERED: FER325 PO (08:01)
[2019-04-29] MEDS ORDERED: Hydraguard TP (08:01)
[2019-04-29] MEDS ORDERED: AMOX1TAB15 PO (08:01)
[2019-04-29] MEDS ORDERED: PROC10I SUBQ (08:01)
[2019-04-29] MEDS ORDERED: ATOR10TA PO (08:17)
[2019-04-29] MEDS ORDERED: ASPI-1718 PO (08:17)
[2019-04-29] MEDS ORDERED: MAG SULF 2000 MG/WATER PREMIX 50 ML IV SCH (08:30)
[2019-04-29] MEDS: DEXT 5% /NACL 0.9% 1,000 ML IV SCH (08:35)
[2019-04-29] MEDS: FERROUS SULFATE 325 MG TABEC PO SCH (09:55)
[2019-04-29] MEDS: VIT-B COMP/VIT-C/FOLIC ACID 1 TAB PO SCH (09:55)
[2019-04-29] MEDS: CALCIUM CARB/VIT-D 500 MG/200 IU 1 TAB PO SCH (09:56)
[2019-04-29] MEDS: AMOXIL/CLAVULANATE 500/125 MG 1 TAB PO SCH (09:58)
[2019-04-29] MEDS: HYDRAGUARD CREAM TP SCH (09:59)
--- NOTE | 2019-04-29 10:08 | NUR ---
MAGNESIUM SULFATE 2GM WAS STARTED TO PT, FOR A MG LEVEL OF 1.6 AND ORAL MEDICATIONS WERE GIVEN AND PT TOLERATED IT, NO SIGN OF DISTRESS NOTED AND WILL MONITOR PT.
--- NOTE | 2019-04-29 12:25 | NUR ---
PT IS AWAKE AND LYING ON THE BED, BLOOD GLUCOSE CHECK DONE AND RESULT IS 103 AND NO INSULIN COVERAGE NEEDED. WILL MONITOR PT. Addendum: 04/29/19 at 1757 by Shobha Ray RN BLOOD GLUCOSE RESULT ON THE ABOVE NOTE IS 107.
[2019-04-29 16:00] VITALS: BP 149/66
--- NOTE | 2019-04-29 16:40 | NUR ---
PT'S NIECE SAID THAT SHE WILL JIGGER OPERATOR THE PT BETWEEN [phone], CHARGE NURSE,CHELSEA WAS INFORMED THAT PT WILL LEAVE BETWEEN [phone].
--- NOTE | 2019-04-29 16:51 | NUR ---
PT IS AWAKE AND V/S CHECKED DONE AND IS WITHIN NORMAL, BLOOD GLUCOSE CHECK RESULT IS 122, NO INSULIN COVERAGE NEEDED. WILL MONITOR PT.
[2019-04-29] MEDS: oxyCODONE/APAP 5/325 MG 1 TAB TAB PO PRN (16:52)
--- NOTE | 2019-04-29 16:52 | NUR ---
PT WAS GIVEN PAIN MEDICATION NOW FOR A PAIN RATE OF 7/10
[2019-04-29] MEDS: THERAHONEY GEL 42.5 GM TP SCH (17:30)
--- NOTE | 2019-04-29 17:30 | NUR ---
PT'S RT FOOT WOUND WAS ASSESSED, WOUND DRESSING DONE AND PHOTO WAS TAKEN AND PLACED IN THE CHART.
--- NOTE | 2019-04-29 19:00 | NUR ---
PT SIGNED DISCHARGE PAPERS, DISCHARGE INSTRUCTIONS AND TEACHINGS WERE GIVEN TO PT AND VERBALIZED UNDERSTANDING. PT WAS INFORMED OF THE HOME HEALTH AGENCY WHICH IS [facility]([phone]), AND [facility](([phone]), INFORMED PT THAT DIALYSIS WILL BE VERY FRIDAY AND FRIDAY AND WILL HAVE TO FOLLOW UP WITH PODIATRY WITHIN 3 DAYS OF DISCHARGE.
--- NOTE | 2019-04-29 19:25 | NUR ---
ENDORSED PT TO AMBULANCE OPERATIONS SUPERVISOR NURSE, FOR CONTINUITY OF THE DISCHARGE PROCESS.
--- NOTE | 2019-04-29 19:26 | NUR ---
RECEIVED REPORT FROM AM NURSE. PT IN STABLE CONDITION. FOR DC HOME ANYTIME TONIGHT. STILL HAS IVF INFUSING ON THE RT FAgG#22. RT LOWER LEG WITH DRESSING. NO C/O ANY PAIN NOTED. WILL CONTINUE TO MONITOR.
--- NOTE | 2019-04-29 19:40 | NUR ---
PT DC HOME ACCOMPANIED BY JOSEE VELAZCO. ALL DISCHARGE PAPERS ALREADY GIVEN BY AM NURSE. INSTRUCTIONS GIVEN AND VERBALIZED UNDERSTANDING. IV ACCESS REMOVED FROM THE FA G#22. INTACT . ASSISTED BY BUSINESS COORDINATOR BY WHEELCHAIR TO PRIVATE CAR IN STABLE CONDITION.
[2019-04-30] MEDS ORDERED: EPOETIN ALFA 10,000 UNITS/ML VIAL SUBQ SCH (09:00)
== END 2019-04-29 19:40 | disposition home health service (06) | DRG 264 ==
LOC: MED 20:52 → MTU 04-23 00:26
PROVIDERS: ADMIT General Practice; ATTEND General Practice
PROC: 30233N1 Transfusion of Nonautologous Red Blood Cells into Peripheral Vein, Percutaneous Approach (ICD-10-PCS; 2019-04-23)
PROC: 02HV33Z Insertion of Infusion Device into Superior Vena Cava, Percutaneous Approach (ICD-10-PCS; principal; 2019-04-24)
PROC: 0JH63XZ Insertion of Tunneled Vascular Access Device into Chest Subcutaneous Tissue and Fascia, Percutaneous Approach (ICD-10-PCS; 2019-04-24)
PROC: 0JBQ0ZZ Excision of Right Foot Subcutaneous Tissue and Fascia, Open Approach (ICD-10-PCS; 2019-04-24)
PROC: B548ZZA Ultrasonography of Superior Vena Cava, Guidance (ICD-10-PCS; 2019-04-24)
PROC: 5A1D70Z Performance of Urinary Filtration, Intermittent, Less than 6 Hours Per Day (ICD-10-PCS; 2019-04-24)
PROC: 5A1D70Z Performance of Urinary Filtration, Intermittent, Less than 6 Hours Per Day (ICD-10-PCS; 2019-04-25)
PROC: 5A1D70Z Performance of Urinary Filtration, Intermittent, Less than 6 Hours Per Day (ICD-10-PCS; 2019-04-28)
DX: E11.51 Type 2 diabetes mellitus with diabetic peripheral angiopathy without gangrene (principal); N17.0 Acute kidney failure with tubular necrosis; N18.6 End stage renal disease; E44.0 Moderate protein-calorie malnutrition; E87.2 Acidosis; I12.0 Hypertensive chronic kidney disease with stage 5 chronic kidney disease or end stage renal disease; N39.0 Urinary tract infection, site not specified; L03.115 Cellulitis of right lower limb; N25.81 Secondary hyperparathyroidism of renal origin; M86.9 Osteomyelitis, unspecified; E11.622 Type 2 diabetes mellitus with other skin ulcer; L89.610 Pressure ulcer of right heel, unstageable; E87.5 Hyperkalemia; Z68.30 Body mass index [BMI] 30.0-30.9, adult; Z99.2 Dependence on renal dialysis; D64.9 Anemia, unspecified; E11.21 Type 2 diabetes mellitus with diabetic nephropathy; E11.22 Type 2 diabetes mellitus with diabetic chronic kidney disease; E83.39 Other disorders of phosphorus metabolism; E83.51 Hypocalcemia; Z91.19 Patient's noncompliance with other medical treatment and regimen; Z88.8 Allergy status to other drugs, medicaments and biological substances; J45.909 Unspecified asthma, uncomplicated; F14.10 Cocaine abuse, uncomplicated; Z98.42 Cataract extraction status, left eye; Z98.41 Cataract extraction status, right eye; Z83.3 Family history of diabetes mellitus; Z82.49 Family history of ischemic heart disease and other diseases of the circulatory system; D63.8 Anemia in other chronic diseases classified elsewhere; R31.9 Hematuria, unspecified; E66.9 Obesity, unspecified; E11.69 Type 2 diabetes mellitus with other specified complication
CPT/HCPCS: 36415; 71045; 72040; 73630; 76536; 78315; 80048; 80053; 80202; 80305; 81001; 82272; 82607; 82728; 82746; 82948; 83036; 83540; 83605; 83690; 83735; 84100; 84134; 84443; 85025; 85045; 85610; 85730; 86704; 86706; 86708; 86709; 86803; 86886; 86900; 86901; 86920; 87040; 87070; 87075; 87081; 87086; 87186; 87205; 87340; 90935; 93005; 93925; 93970; 97110; 97116; 97161-GP; 97530; 99281; C1750; J0690; J0885; J1200; J1644; J1815; J2001; J2150; J2250; J2270; J2543; J2930; J3010; J3370; J3475; J3490; J7030; J7042; J7060; P9016; Q0092

== ENCOUNTER 2021-07-02 11:11 | Emergency (ER) | payer OTHER ==
[~2021-07-02] VITALS: Ht 152.4 cm; Wt 90.3 kg
[~2021-07-02 11:11] MED LIST changes: +AMOX1TAB15 PO; +ASPI-1822 PO; +ATOR10TA PO; +FER325 PO; +HUMSLIDE SUBQ; -HYDR-5122 PO; +Hydraguard TP; +PROC10I SUBQ
[2021-07-02 11:21] VITALS: BP 185/101
--- NOTE | 2021-07-02 11:28 | NUR ---
AMBULATED TO ER BED 9
--- NOTE | 2021-07-02 11:49 | NUR ---
Radiology at bedside taking xray
--- NOTE | 2021-07-02 11:57 | NUR ---
66/M PRESENTS TO ED FOR LAB DRAW. PATIENT STATES HE HAS MISSED HIS LAST 3 SCHEDULED DIALYSIS DAYS AND WAS REFERRED BY A CLINIC TO COME TO ED TO ASSESS FOR ANY ABNORMAL LABS. PATIENT HAS DIALYSIS CATHETER IN UPPER RIGHT CHEST, STATES DIALYSIS DAYS ARE TUES, THURS, AND SAT. PATIENT DENIES ANY PAIN OR DISCOMFORT, DENIES CP, SOB, FEVER OR CHILLS, NO OTHER COMPLAINTS AT THIS TIME.
[2021-07-02 12:08] LABS: BASOPHILS % (AUTO) 0.7 % (0.0-2.0); EOSINOPHILS # (AUTO) 0.2 K/uL (0-0.4); EOSINOPHILS % (AUTO) 3.4 % (0.0-4.0); HEMOGLOBIN 10.7 g/dL (12.0-18.0); LYMPHOCYTES # (AUTO) 1.1 K/uL (2.0-11.5); LYMPHOCYTES % (AUTO) 16.5 % (20.5-51.1); MEAN CORPUSCULAR HEMOGLOBIN 33 pg (27-31); MEAN CORPUSCULAR HGB CONC 33 g/dL (33-37); MEAN CORPUSCULAR VOLUME 99.5 fL (80-94); MONOCYTES # (AUTO) 0.3 K/uL (0.8-1.0); MONOCYTES % (AUTO) 4.7 % (1.7-9.3); NEUTROPHILS # (AUTO) 4.9 K/uL (1.8-7.7); NEUTROPHILS % (AUTO) 74.7 % (42.2-75.2); PLATELET COUNT (AUTO) 214 K/uL (140-450); RED BLOOD CELL COUNT(AUTO) 3.22 MIL/uL (4.20-6.10); RED CELL DISTRIBUTION WIDTH 13.9 % (11.6-13.7); WHITE BLOOD COUNT (AUTO) 6.6 K/uL (4.8-10.8)
[2021-07-02 12:20] LABS: ALBUMIN 3.2 g/dL (3.4-5.0); ANION GAP 19.7 (8-16); CARBON DIOXIDE 21.2 mmol/L (21-32); POTASSIUM 5.9 mmol/L (3.5-5.1); TOTAL BILIRUBIN 0.4 mg/dL (0.0-1.0)
[2021-07-02 12:22] LABS: CREATININE 12.1 mg/dL (0.6-1.3)
[2021-07-02] MEDS ORDERED: SODIUM ZIRCONIUM CYCLOSILICATE 10 GM POWD.PACK PO ONE (12:30)
[2021-07-02 12:55] VITALS: BP 160/84
--- NOTE | 2021-07-02 12:55 | NUR ---
Patient discharged with v/s stable. Written and verbal after care instructions given and explained. Patient verbalized understanding. Ambulatory with steady gait. All questions addressed prior to discharge. Advised to follow up with PMD.
== END 2021-07-02 12:55 | disposition home or self-care (01) ==
LOC: MED 11:11
DX: E87.6 Hypokalemia (principal); E11.22 Type 2 diabetes mellitus with diabetic chronic kidney disease; I12.0 Hypertensive chronic kidney disease with stage 5 chronic kidney disease or end stage renal disease; N18.6 End stage renal disease; Z99.2 Dependence on renal dialysis; Z88.1 Allergy status to other antibiotic agents; Z88.8 Allergy status to other drugs, medicaments and biological substances; Z20.822 Contact with and (suspected) exposure to COVID-19
CPT/HCPCS: 36415; 71045; 80053; 83880; 84484; 85025; 87426; 93005; 99285; Q0092

== ENCOUNTER 2021-07-03 13:41 | Inpatient (IN) | payer OTHER, SELFPAY ==
[~2021-07-03] VITALS: Ht 152.4 cm; Wt 90.7 kg
[2021-07-03 13:49] VITALS: BP 142/70
--- NOTE | 2021-07-03 14:06 | NUR ---
66/M BIBA WITH C/O ALOC AND CONFUSION S/P RECEIVING DIALYSIS. PER EMS PATIENT MISSED HIS LAST 3 SCHEDULED DIALYSIS APPOINTMENTS, STATING TODAY HE RETURNED AND BEGAN FEELING ALTERED AND CONFUSED AFTER DIALYSIS WAS COMPLETE. PATIENT ALERT AND ORIENTED X4, ANSWERING QUESTIONS APPROPRIATELY. STATING HE FEELS WEAK AND IS HAVING A HARD TIME "REMEMBERING THINGS." PATIENT SEEN HERE YESTERDAY AND D/C HOME. DENIES CP, SOB, FEVER, CHILLS, N/V/D. PATIENT PLACED IN GOWN ON BEDSIDE RECORD TESTER.
--- NOTE | 2021-07-03 14:20 | NUR ---
20G IV ESTABLISHED TO RIGHT AC, LABS DRAWN AND HANDED TO CHANNEL CEMENTER
--- NOTE | 2021-07-03 14:27 | NUR ---
PATIENT TAKEN TO CT VIA CHRISTI
[2021-07-03 14:40] LABS: BASOPHILS % (AUTO) 0.6 % (0.0-2.0); EOSINOPHILS # (AUTO) 0.2 K/uL (0-0.4); EOSINOPHILS % (AUTO) 2.5 % (0.0-4.0); HEMATOCRIT 31.8 % (36-52); LYMPHOCYTES # (AUTO) 0.6 K/uL (2.0-11.5); LYMPHOCYTES % (AUTO) 10.2 % (20.5-51.1); MEAN CORPUSCULAR HEMOGLOBIN 33 pg (27-31); MEAN CORPUSCULAR HGB CONC 35 g/dL (33-37); MEAN CORPUSCULAR VOLUME 96.2 fL (80-94); MONOCYTES # (AUTO) 0.3 K/uL (0.8-1.0); MONOCYTES % (AUTO) 5.3 % (1.7-9.3); NEUTROPHILS # (AUTO) 5.2 K/uL (1.8-7.7); NEUTROPHILS % (AUTO) 81.4 % (42.2-75.2); PLATELET COUNT (AUTO) 218 K/uL (140-450); RED BLOOD CELL COUNT(AUTO) 3.31 MIL/uL (4.20-6.10); RED CELL DISTRIBUTION WIDTH 13.6 % (11.6-13.7); WHITE BLOOD COUNT (AUTO) 6.3 K/uL (4.8-10.8)
[2021-07-03 15:06] LABS: ALBUMIN 3.4 g/dL (3.4-5.0); ANION GAP 13.5 (8-16); CARBON DIOXIDE 30.1 mmol/L (21-32); POTASSIUM 3.6 mmol/L (3.5-5.1); TOTAL BILIRUBIN 0.6 mg/dL (0.0-1.0)
[2021-07-03 15:08] LABS: CREATININE 6.7 mg/dL (0.6-1.3)
[2021-07-03 15:10] LABS: PROTHROMBIN TIME 11.2 secs (10.8-13.4)
[2021-07-03 15:21] LABS: ACETAMINOPHEN < 0.5 ug/ml (10-30); SALICYLATE < 2.8 mg/dL (2.8-20.0)
--- NOTE | 2021-07-03 16:12 | NUR ---
URINAL PROVIDED, URINE COLLECTED AND WALKED TO LAB.
[2021-07-03 17:35] LABS: APPEARANCE,URINE HAZY (CLEAR); BILIRUBIN,URINE NEGATIVE (NEGATIVE); BLOOD, URINE 2+ (NEGATIVE); COLOR,URINE DARK YELLOW (YELLOW); LEUKOCYTE ESTERASE ,URINE 1+ (NEGATIVE); NITRITE, URINE NEGATIVE (NEGATIVE); PH,URINE 7.5 (5.0-9.0); UGLUCOSE 1+ (NEGATIVE)
[2021-07-03] MEDS ORDERED: LORazepam 2 MG/ML VIAL IVP PRN (17:45)
[2021-07-03] MEDS ORDERED: ONDANSETRON 4 MG/2 ML VIAL IVP PRN (17:45)
[2021-07-03] MEDS ORDERED: ACETAMINOPHEN 325 MG TAB PO PRN (17:45)
[2021-07-03] MEDS ORDERED: INSULIN LISPRO SLIDING SCALE 100 UNITS/ML VIAL SUBQ PRN (17:45)
--- NOTE | 2021-07-03 18:10 | NUR ---
PATIENT APPEARS TO BE RESTING WITH EYES CLOSED, ON BEDSIDE ANIMAL TRAINER SUPERVISOR. ALL NEEDS MET AT THIS TIME, WILL CONTINUE TO MONITOR.
--- NOTE | 2021-07-03 19:16 | NUR ---
Pt report given to CAMI MEDINA. Transfer of care at this time.
--- NOTE | 2021-07-03 19:45 | NUR ---
PT. IS IN SUPINE POSITION, AWAKE AND ALERT. HR EVEN AND REGULAR WITH BREATHING UNLABORED.
--- NOTE | 2021-07-03 20:04 | NUR ---
TRIED TO CALL REPORT TO CAROL LOPEZ BUT STATES HE IS CURRENTLY GETTING REPORT AND CALL BACK IN 10 MINS.
--- NOTE | 2021-07-03 20:15 | NUR ---
Patient will be admitted to care of DR. RAMIREZ. Admitted to Med Surg Unit. Will go to room 114. Belongings list completed. Report to CAROL Eckert.
--- NOTE | 2021-07-03 20:26 | NUR ---
PT. TAKEN TO ROOM 114 MED SURG UNIT, ACCOMPANIED BY EMT.
[2021-07-03] MEDS ORDERED: HYDRAGUARD TP SCH (21:00)
[2021-07-03] MEDS: ATORVASTATIN 20 MG TAB PO SCH (22:26)
[2021-07-04] VITALS: BP 115/65
[2021-07-04] MEDS: HYDROcodone/APAP 5/325 MG 1 TAB TAB PO PRN ×4 (00:49→21:41)
--- NOTE | 2021-07-04 01:17 | NUR ---
the patient was admitted for ALOC, he has esrd , htn , dm and asthma. he complained of dizziness , fatigue and nasuesa for the whole day 07/03/21 , he stated that he missed hisdialyisis for three times, hois creatinine is high , he had pain 6 on scale 0-10 , narco was admnistered , he sleeps comfortable in his bed, comfort and safety measures are provided. bed is low position.
[2021-07-04 04:00] VITALS: BP 119/72
--- NOTE | 2021-07-04 07:05 | NUR ---
RECEIVED CHANGE OF SHIFT REPORT FROM NIGHT NURSE AT BEDSIDE FOR CONTINUITY OF CARE. REVIEWED AND WILL CONTINUE WITH POC. PT ASLEEP DURING BEDSIDE REPORT. NURSE REPORTS WHEN PT IS AWAKE PT IS AA&OX4 AND AMBULATORY. PT ON RA BREATHING NORMAL AND UNLABORED. NURSE REPORTS PT WAS ST ON TELE. SKIN IS WARM, DRY, AND INTACT. IV IS PATENT AND INTACT. Addendum: 07/04/21 at 0733 by Chastity Condon RN RN WRONG PT. RECEIVED CHANGE OF SHIFT REPORT FROM NIGHT NURSE AT BEDSIDE FOR CONTINUITY OF CARE. REVIEWED AND WILL CONTINUE WITH POC. PT ASLEEP DURING BEDSIDE REPORT. NURSE REPORTS WHEN PT IS AWAKE PT IS AA&OX4 AND AMBULATORY. PT ON RA BREATHING NORMAL AND UNLABORED. SKIN IS WARM, DRY, AND INTACT. RAC 20G IV IS PATENT AND INTACT.
[2021-07-04 07:45] LABS: BASOPHILS % (AUTO) 0.6 % (0.0-2.0); EOSINOPHILS # (AUTO) 0.2 K/uL (0-0.4); EOSINOPHILS % (AUTO) 2.9 % (0.0-4.0); HEMATOCRIT 31.4 % (36-52); HEMOGLOBIN 10.6 g/dL (12.0-18.0); LYMPHOCYTES # (AUTO) 1.3 K/uL (2.0-11.5); LYMPHOCYTES % (AUTO) 21.3 % (20.5-51.1); MEAN CORPUSCULAR HEMOGLOBIN 33 pg (27-31); MEAN CORPUSCULAR HGB CONC 34 g/dL (33-37); MEAN CORPUSCULAR VOLUME 98.2 fL (80-94); MONOCYTES # (AUTO) 0.5 K/uL (0.8-1.0); MONOCYTES % (AUTO) 8.1 % (1.7-9.3); NEUTROPHILS # (AUTO) 4.2 K/uL (1.8-7.7); NEUTROPHILS % (AUTO) 67.1 % (42.2-75.2); PLATELET COUNT (AUTO) 232 K/uL (140-450); RED CELL DISTRIBUTION WIDTH 13.4 % (11.6-13.7); WHITE BLOOD COUNT (AUTO) 6.3 K/uL (4.8-10.8)
[2021-07-04 08:00] VITALS: BP 130/71
[2021-07-04 08:17] LABS: ALBUMIN 2.9 g/dL (3.4-5.0); ANION GAP 17.1 (8-16); CARBON DIOXIDE 25.3 mmol/L (21-32); MAGNESIUM 2.7 mg/dL (1.8-2.4); PHOSPHORUS 6.3 mg/dL (2.5-4.9); POTASSIUM 4.4 mmol/L (3.5-5.1); TOTAL BILIRUBIN 0.4 mg/dL (0.0-1.0)
[2021-07-04 08:24] LABS: CREATININE 7.9 mg/dL (0.6-1.3)
--- NOTE | 2021-07-04 08:40 | NUR ---
UNABLE TO ADMINISTER AUGMENTIN AT SCHEDULED TIME. CALLED PHARMACY, THEY DO NOT HAVE THE MEDICATION ON HAND BUT SHOULD HAVE IT IN THE AFTERNOON. WILL ADMINISTER WHEN MEDICATION IS AVAILABLE.
[2021-07-04] MEDS: FERROUS SULFATE 325 MG TABEC PO SCH (08:49)
[2021-07-04] MEDS: ASPIRIN 81 MG TAB.CHEW PO SCH (08:50)
--- NOTE | 2021-07-04 08:55 | NUR ---
PT VERBALIZES PAIN 6/10 IN ABDOMEN. ADMINISTERED NORCO PRN FOR PAIN. WILL REASSESS IN 1 HR.
--- NOTE | 2021-07-04 09:55 | NUR ---
PAIN REASSESSMENT COMPLETE.D. PT DENIES PAIN OR DISCOMFORT AT THIS TIME. PT CONDITION IS STABLE. WILL CONTINUE TO MONITOR.
--- NOTE | 2021-07-04 10:23 | NUR ---
PATIENT HAS BEEN SCREENED AND CATEGORIZED MODERATE NUTRITION RISK. PATIENT WILL BE SEEN WITHIN 3-5 DAYS OF ADMISSION. 07/05/21 07/07/[address]
--- NOTE | 2021-07-04 11:41 | NUR ---
PHARMACY BROUGHT PT SCHEDULED MEDICATION AUGMENTIN. WILL ADMINISTER SHORTLY.
[2021-07-04] MEDS: AMOXIL/CLAVULANATE 500/125 MG 1 TAB PO SCH (11:44)
--- NOTE | 2021-07-04 11:44 | NUR ---
ADMINISTERED AUGMENTIN ORIGINALLY SCHEDULED AT 0830. SEE NOTE TRANSCRIBED AT 0840. PT CONDITION IS STABLE. COMPLAINED OF ITCHING IN LEGS AND ASKED FOR LOTION TO BE APPLIED. APPLIED LOTION ON LOWER EXTREMITIES. SKIN IS DRY BUT INTACT.
--- NOTE | 2021-07-04 13:30 | NUR ---
HD CONSENT SIGNED FOR PT, HEATER PLANER OPERATOR EXPLAINED PROCEDURE AND SIGNED CONSENT. GHADA (HD NURSE) NOTIFIED ABOUT PT NEEDING HD TOMORROW 07/05/21.
--- NOTE | 2021-07-04 13:35 | NUR ---
PT CONDITION IS STABLE. PT IS AWAKE AND WATCHING TV. PT DENIES PAIN OR DISCOMFORT AT THIS TIME. WILL CONTINUE TO MONITOR PT CONDITION.
--- NOTE | 2021-07-04 15:35 | NUR ---
PT CONDITION IS STABLE. PT DENIES PAIN OR DISCOMFORT AT THIS TIME. WILL CONTINUE TO MONITOR PT CONDITION.
[2021-07-04 16:00] VITALS: BP 164/84
--- NOTE | 2021-07-04 17:30 | NUR ---
PT CONDITION IS STABLE. PT IS AWAKE AND DENIES PAIN OR DISCOMFORT AT THIS TIME.
--- NOTE | 2021-07-04 19:20 | NUR ---
GAVE CHANGE OF SHIFT REPORT TO NIGHT NURSE AT BEDSIDE FOR CONTINUITY OF CARE. DISCUSSED POC. PT STABLE.
[2021-07-04] MEDS: ATORVASTATIN 20 MG TAB PO SCH (21:42)
[2021-07-05] VITALS: BP 142/82
[2021-07-05] MEDS: HYDROcodone/APAP 5/325 MG 1 TAB TAB PO PRN ×2 (03:43→09:43)
--- NOTE | 2021-07-05 07:22 | NUR ---
RECEIVED BEDSIDE REPORT FROM NIGHT NURSE AT BEDSIDE FOR CONTINUITY OF CARE. PT IS AOX4, ABLE TO MAKE NEEDS KNOWN. RESPIRATIONS EVEN AND UNLABORED. ON ROOM AIR AND NO DISTRESS NOTED. SKIN IS WARM, DRY, AND INTACT. LAC 20 G IV IS PATENT AND INTACT. SALINE LOCKED. HAS RIGHT UPPER CHEST TUNNELED CATH. HEMODIALYSIS IS SCHEDULED FOR TODAY. PLAN OF CARE DISCUSSED. CALL LIGHT SAFETY PRECAUTION IN PLACE. WITHIN LIGHT WITHIN REACH. WILL CONTINUE TO MONITOR.
[2021-07-05 08:00] VITALS: BP 155/80
[2021-07-05] MEDS: ASPIRIN 81 MG TAB.CHEW PO SCH (09:00)
[2021-07-05] MEDS: AMOXIL/CLAVULANATE 500/125 MG 1 TAB PO SCH (09:04)
[2021-07-05] MEDS: FERROUS SULFATE 325 MG TABEC PO SCH (09:08)
--- NOTE | 2021-07-05 09:43 | NUR ---
PATIENT COMPLAINED OF 6/10 LOWER BACK PAIN. ADMINISTERED PRN PAIN MEDICATIONS PER MD ORDERED.
--- NOTE | 2021-07-05 09:45 | NUR ---
HD NURSE AT BEDSIDE. PATIENT WILL UNDERGO HD TREATMENT.
--- NOTE | 2021-07-05 10:24 | NUR ---
PATIENT COMPLAINED OF ANXIETY. ADMINISTERED PRN ATIVAN PER MD ORDERED.
[2021-07-05 10:25] LABS: BASOPHILS # (AUTO) 0.1 K/uL (0.00-0.22); BASOPHILS % (AUTO) 0.9 % (0.0-2.0); EOSINOPHILS # (AUTO) 0.2 K/uL (0-0.4); EOSINOPHILS % (AUTO) 2.3 % (0.0-4.0); HEMATOCRIT 29.8 % (36-52); HEMOGLOBIN 10.2 g/dL (12.0-18.0); LYMPHOCYTES # (AUTO) 0.9 K/uL (2.0-11.5); LYMPHOCYTES % (AUTO) 13.4 % (20.5-51.1); MEAN CORPUSCULAR HEMOGLOBIN 33 pg (27-31); MEAN CORPUSCULAR HGB CONC 34 g/dL (33-37); MEAN CORPUSCULAR VOLUME 97.4 fL (80-94); MONOCYTES # (AUTO) 0.4 K/uL (0.8-1.0); MONOCYTES % (AUTO) 6.3 % (1.7-9.3); NEUTROPHILS # (AUTO) 5.4 K/uL (1.8-7.7); NEUTROPHILS % (AUTO) 77.1 % (42.2-75.2); PLATELET COUNT (AUTO) 213 K/uL (140-450); RED BLOOD CELL COUNT(AUTO) 3.06 MIL/uL (4.20-6.10); RED CELL DISTRIBUTION WIDTH 13.4 % (11.6-13.7)
[2021-07-05 10:34] LABS: ANION GAP 15.4 (8-16); CARBON DIOXIDE 25.5 mmol/L (21-32); POTASSIUM 3.9 mmol/L (3.5-5.1)
[2021-07-05 10:40] LABS: CREATININE 8.7 mg/dL (0.6-1.3)
--- NOTE | 2021-07-05 12:55 | NUR ---
PATIENT COMPLETED HD TREATMENT. 1 L OF FLUIDS WERE REMOVED
[2021-07-05 13:05] VITALS: BP 155/80
--- NOTE | 2021-07-05 13:15 | NUR ---
DC PLANNING: CM ATTEMPTED TO SPEAK WITH THE PATIENT AT BEDSIDE, PATIENT WAS HAVING DIALYSIS AND WAS SLEEPING. CM CALLED MATIAS NASH TO CONFIRM THAT HE IS SCHEDULED ON , AND SAT AT 8:45 AM, ENDORSED THAT HE WILL DC TODAY AFTER HD. TERESA THEN CALLED HIS SISTER WHO STATES THAT THE PATIENT LIVES WITH HIS GRANDMOTHER IN A HOTEL. ANOTHER SISTER OF THE PATIENT ACTS CAREGIVER TO THE GRANDMOTHER AND ASSISTS THE PATIENT NEEDED. THE PATIENT IS ABLE TO AMBULATE, UNCLEAR WHAT DISTANCE BUT HE USES A FWW AND WC. HE IS INDEPENDENT WITH ADL'S, AND USES ARRANGED TRANSPORT FOR DIALYSIS AND MD APPOINTMENTS, HIS SISTER WASN'T CLEAR WHICH TRANSPORT NOR WAS [facility]. THE PLAN IS FOR THE PATIENT TO DC TODAY AFTER HD, FAMILY WILL TRANSPORT. CM WILL FOLLOW FOR NEEDS.
--- NOTE | 2021-07-05 13:20 | NUR ---
ENDORSED DISCHARGE INSTRUCTIONS TO PATIENT. PATIENT VERBALIZED UNDERSTANDING AND SIGNED DISCHARGE FORMS.
--- NOTE | 2021-07-05 13:45 | NUR ---
PATIENT DISCHARGED OFF THE UNIT. PT PICKED UP BY [facility] AT THE FRONT LOBBY. PT WAS STABLE PRIOR TO DISCHARGE.
[2021-07-06] MEDS ORDERED: EPOETIN ALFA 20000 UNIT SUBQ SCH (09:00)
[2021-07-06] MEDS ORDERED: EPOETIN ALFA-EPBX 10,000 UNITS/ML VIAL SUBQ SCH (09:00)
== END 2021-07-05 13:40 | disposition home or self-care (01) | DRG 70 ==
LOC: MED 13:41 → MTU 17:49
PROVIDERS: ADMIT Preventive Medicine Preventive Medicine/Occupational Environmental Medicine; ATTEND Preventive Medicine Preventive Medicine/Occupational Environmental Medicine
PROC: 5A1D70Z Performance of Urinary Filtration, Intermittent, Less than 6 Hours Per Day (ICD-10-PCS; principal; 2021-07-05)
DX: G93.41 Metabolic encephalopathy (principal); N18.6 End stage renal disease; E44.0 Moderate protein-calorie malnutrition; I12.0 Hypertensive chronic kidney disease with stage 5 chronic kidney disease or end stage renal disease; E11.65 Type 2 diabetes mellitus with hyperglycemia; E11.22 Type 2 diabetes mellitus with diabetic chronic kidney disease; D63.1 Anemia in chronic kidney disease; E78.5 Hyperlipidemia, unspecified; E11.51 Type 2 diabetes mellitus with diabetic peripheral angiopathy without gangrene; J45.909 Unspecified asthma, uncomplicated; E83.51 Hypocalcemia; I89.0 Lymphedema, not elsewhere classified; Z20.822 Contact with and (suspected) exposure to COVID-19; E11.40 Type 2 diabetes mellitus with diabetic neuropathy, unspecified; E83.41 Hypermagnesemia; E83.39 Other disorders of phosphorus metabolism; Z99.2 Dependence on renal dialysis; Z88.0 Allergy status to penicillin; Z88.1 Allergy status to other antibiotic agents; Z79.82 Long term (current) use of aspirin; Z82.49 Family history of ischemic heart disease and other diseases of the circulatory system; Z83.3 Family history of diabetes mellitus; Z79.899 Other long term (current) drug therapy; Z79.4 Long term (current) use of insulin; Z68.39 Body mass index [BMI] 39.0-39.9, adult
CPT/HCPCS: 36415; 70450; 71045; 80048; 80053; 81001; 82140; 83605; 83735; 83880; 84100; 84484; 85025; 85610; 85730; 87040; 87081; 87086; 93005; 99285; G0480; G0482; J1644; J2060; Q0092

== ENCOUNTER 2021-09-04 11:29 | Emergency (ER) | payer OTHER ==
[~2021-09-04] VITALS: Ht 157.5 cm; Wt 46.3 kg
[2021-09-04 11:49] VITALS: BP 137/60
--- NOTE | 2021-09-04 13:00 | NUR ---
PT NO LONGER IN CHAIR C OR LOBBY, WILL ATTEMPT AGAIN
--- NOTE | 2021-09-04 13:17 | NUR ---
ATTEMPTED TO CALL PT IN LOBBY, NO ANSWER
--- NOTE | 2021-09-04 13:18 | NUR ---
PATIENT LEFT WITHOUT BEING SEEN BY DR. LYNNE. NO FURTHER CARE PROVIDED FOR PATIENT.
== END 2021-09-04 13:18 | disposition left against medical advice (07) ==
LOC: MED 11:29
DX: Z53.21 Procedure and treatment not carried out due to patient leaving prior to being seen by health care provider (principal)

== ENCOUNTER 2021-09-07 06:35 | Emergency (ER) | payer OTHER ==
[~2021-09-07] VITALS: Ht 160 cm; Wt 99.8 kg
[2021-09-07 06:35] VITALS: BP 147/80
--- NOTE | 2021-09-07 06:40 | NUR ---
CHELY TEJADA TO ER BED 04 VIA EMS
--- NOTE | 2021-09-07 06:40 | NUR ---
PT BIBA AMBULANCE FROM HOME C/O PENILE PAIN X 1 WEEK, PT STATES HE WAS HERE X 2 DAYS AGO BUT LEFT WITHOUT BEEN SEEN. PT DENIES ABDOMIAL PAIN AND N/V/D. MEDICAL HX: DIABETES, HYPOTENSION, DIALYSIS ALLERGIES: PIPERACILLIN, TAZOBACTAM MEDICATIONS:DENIES
[2021-09-07] MEDS ORDERED: PHENAZOPYRIDINE 100 MG TAB PO ONE (07:00)
--- NOTE | 2021-09-07 07:02 | NUR ---
PT GIVEN URINAL
[2021-09-07] MEDS ORDERED: PHENAZOPYRIDINE 100 MG TAB ONE (07:03)
[2021-09-07] MEDS ORDERED: CIPROFLOXACIN 250 MG TAB PO ONE (07:20)
[2021-09-07] MEDS ORDERED: PYR100 PO (07:25)
[2021-09-07] MEDS ORDERED: CIPR500T4 PO (07:25)
[2021-09-07 07:49] VITALS: BP 147/80
--- NOTE | 2021-09-07 07:49 | NUR ---
Patient discharged with v/s stable. Written and verbal after care instructions given and explained. Patient alert, oriented and verbalized understanding of instructions. Ambulatory with to car. All questions addressed prior to discharge. ID band removed. Patient advised to follow up with PMD. Rx of CIPROFLOXACIN, PHENAZOPYRIDINE (SENT) given. Patient educated on indication of medication including possible reaction and side effects. Opportunity to ask questions provided and answered.
== END 2021-09-07 07:49 | disposition home or self-care (01) ==
LOC: MED 06:35
DX: N39.0 Urinary tract infection, site not specified (principal); N48.89 Other specified disorders of penis; J45.909 Unspecified asthma, uncomplicated; E11.22 Type 2 diabetes mellitus with diabetic chronic kidney disease; I12.0 Hypertensive chronic kidney disease with stage 5 chronic kidney disease or end stage renal disease; N18.6 End stage renal disease; Z99.2 Dependence on renal dialysis; Z91.15 Patient's noncompliance with renal dialysis; Z79.899 Other long term (current) drug therapy; Z79.2 Long term (current) use of antibiotics; Z79.4 Long term (current) use of insulin; Z88.0 Allergy status to penicillin; Z88.1 Allergy status to other antibiotic agents
CPT/HCPCS: 81002; 99283

== ENCOUNTER 2022-05-11 18:42 | Inpatient (IN) | payer OTHER ==
[~2022-05-11] VITALS: Ht 162.6 cm; Wt 95.7 kg
[~2022-05-11 18:42] MED LIST changes: +CIPR500T4 PO; +PYR100 PO
--- NOTE | 2022-05-11 18:46 | NUR ---
PATIENT BIBA TO BED 7
[2022-05-11 18:49] VITALS: BP 151/80
--- NOTE | 2022-05-11 18:53 | NUR ---
DR MELO AT BEDSIDE FOR EVAL
[2022-05-11] MEDS ORDERED: NACL 0.9% 500 ML IV ONE (19:00)
[2022-05-11] MEDS ORDERED: CEFEPIME 1,000 MG in DEXTROSE 5% 50 ML IV ONE (19:00)
[2022-05-11] MEDS ORDERED: MECLIZINE 25 MG TAB PO ONE (19:00)
[2022-05-11] MEDS ORDERED: METOCLOPRAMIDE 10 MG/2 ML INJ VIAL IVP ONE (19:00)
[2022-05-11] MEDS ORDERED: CEFEPIME 1,000 MG VIAL ONE (19:28)
--- NOTE | 2022-05-11 19:29 | NUR ---
lab at bedside
--- NOTE | 2022-05-11 19:30 | NUR ---
rad at bedside.
[2022-05-11 19:41] LABS: BASOPHILS % (AUTO) 0.8 % (0.0-2.0); EOSINOPHILS % (AUTO) 0.5 % (0.0-4.0); HEMATOCRIT 30.8 % (36-52); HEMOGLOBIN 10.5 g/dL (12.0-18.0); LYMPHOCYTES # (AUTO) 0.4 K/uL (2.0-11.5); LYMPHOCYTES % (AUTO) 13.8 % (20.5-51.1); MEAN CORPUSCULAR HEMOGLOBIN 32 pg (27-31); MEAN CORPUSCULAR HGB CONC 34 g/dL (33-37); MEAN CORPUSCULAR VOLUME 95.4 fL (80-94); MONOCYTES # (AUTO) 0.2 K/uL (0.8-1.0); MONOCYTES % (AUTO) 9.4 % (1.7-9.3); NEUTROPHILS % (AUTO) 75.5 % (42.2-75.2); PLATELET COUNT (AUTO) 101 K/uL (140-450); RED BLOOD CELL COUNT(AUTO) 3.23 MIL/uL (4.20-6.10); RED CELL DISTRIBUTION WIDTH 13.2 % (11.6-13.7); WHITE BLOOD COUNT (AUTO) 2.7 K/uL (4.8-10.8)
--- NOTE | 2022-05-11 19:51 | NUR ---
summer and carson collected and taken to lab
--- NOTE | 2022-05-11 19:58 | NUR ---
iv 18g to rt fa. estab. pt medicated per orders.
--- NOTE | 2022-05-11 20:01 | NUR ---
TO CT VIA [facility]
[2022-05-11 20:04] LABS: ANION GAP 15.5 (8-16); ASPARTATE AMINOTRANSFERASE 46 U/L (15-37); CARBON DIOXIDE 26.8 mmol/L (21-32); CHLORIDE 96 mmol/L (98-107); GFR ARICAN-AMERICAN 12 mL/min (>90); GLUCOSE 134 mg/dL (74-106); POTASSIUM 4.3 mmol/L (3.5-5.1); SODIUM SERUM 134 mmol/L (136-145); TOTAL BILIRUBIN 0.4 mg/dL (0.0-1.0); UREA NITROGEN, BLOOD 40 mg/dL (7-18)
--- NOTE | 2022-05-11 20:12 | NUR ---
RETURNED FROM CT
[2022-05-11 20:16] LABS: APPEARANCE,URINE CLEAR (CLEAR); BILIRUBIN,URINE NEGATIVE (NEGATIVE); BLOOD, URINE 1+ (NEGATIVE); COLOR,URINE YELLOW (YELLOW); LEUKOCYTE ESTERASE ,URINE NEGATIVE (NEGATIVE); NITRITE, URINE NEGATIVE (NEGATIVE); PH,URINE 8.5 (5.0-9.0); UGLUCOSE 1+ (NEGATIVE)
[2022-05-11] MEDS ORDERED: OSELTAMIVIR PHOSPHATE 75 MG CAP PO ONE (20:40)
[2022-05-11 20:43] LABS: BARBITURATE, URINE NEGATIVE ng/ml (NEG <=200); BENZODIAZEPINE, URINE NEGATIVE ng/mL (NEG <=200); CANNABINOID, URINE NEGATIVE ng/mL (NEG <=50); COCAINE, URINE NEGATIVE ng/mL (NEG <=300); OPIATE, URINE POSITIVE ng/mL (NEG <=2000); PHENCYCLIDINE SCREEN,URINE NEGATIVE ng/mL (NEG <=25)
[2022-05-11 20:53] LABS: RBC,URINE 0-5 /HPF (0-5); WBC,URINE 0-5 /HPF (0-5)
--- NOTE | 2022-05-11 20:55 | NUR ---
CALLING OUT, "I NEED A NEW BED. MY BACK IS KILLING ME"
--- NOTE | 2022-05-11 21:34 | NUR ---
PT STATES HE DOES NOT TAKE ANY MEDICATIONS. HE IS NON-COMPLIANT
[2022-05-11] MEDS ORDERED: diphenhydrAMINE 50 MG/ML VIAL IVP PRN (22:55)
[2022-05-11] MEDS ORDERED: LORazepam 2 MG/ML VIAL IVP ONE (22:55)
[2022-05-11] MEDS ORDERED: LORazepam 2 MG/ML VIAL ONE (22:58)
[2022-05-11] MEDS ORDERED: diphenhydrAMINE 50 MG/ML VIAL ONE (22:59)
--- NOTE | 2022-05-12 00:18 | NUR ---
PT PULLED IV OUT, STOOD TO SIDE OF BED AND HAD BM. LINENS CHANGED, ASSISTED ONTO BSC
--- NOTE | 2022-05-12 02:00 | NUR ---
Patient appears to be resting comfortably in bed. Vital Signs within normal limits. Respirations even and unlabored.
[2022-05-12] MEDS ORDERED: CIPROFLOXACIN 250 MG TAB ONE ×2 (02:05→04:29)
--- NOTE | 2022-05-12 06:00 | NUR ---
. PT IS RESTLESS, ASSISTED WITH POSITIONING FOR COMFORTAWAKE. 20G IV REESTABLISHED LEFT A/C. WATER GIVEN
[2022-05-12] MEDS: DEXT 5% / NACL 0.45% 1,000 ML IV SCH ×2 (06:14→16:42)
--- NOTE | 2022-05-12 07:30 | NUR ---
REPORT RECEIVED FROM PATRICIA MEDINA. ASSUMED CARE AT THIS TIME
--- NOTE | 2022-05-12 07:45 | NUR ---
PT AT REST AND SLEEPING SUPINE POSITION. RESPIRATIONS EVEN AND UNLABORED. NO VISIBLE DISTRESS. BED AT LOWEST POSITION , BED RAILS UP X2.
--- NOTE | 2022-05-12 08:15 | NUR ---
66YO MALE PT BIBA FROM HOME DUE TO GENERAL WEAKNESS. PT REPORTS DIZZINESS, FEVER AND CHILLS X2DAYS. DENIES FEVER, CHILLS, CHEST PAIN, SOB OR N/D AT THIS TIME . PT C/O NEW ONSET OF DULL BACK PAIN AND STATES IS DUE TO HOSPITAL BED. REPORTS EPISODES OF UNCONTROLLED DIARRHEA OVERNIGHT. DENIES ABDOMINAL PAIN. PT AAOX4, NO VISIBLE DISTRESS , RESPIRATIONS EVEN AND UNLABORED. PT HAS HX OF ERSD AND HAS MEETA R UPPER CHEST. PT AMBULATORY USING WHEELCHAIR. PT CHANGED INTO NEW GOWN AND PROVIDED WITH NEW LINENS DUE TO SOILING. PT ON HORSE SHOER HX: DIABETES, HTN , CORONARY ARTERTY DISEASE, STENT , ERSD- MEETA R UPPER CHEST ALLERGIES: PIPERACILLIN, TAZOBACTAM DIALYSIS- //SAT - AT [facility] : 9AM
--- NOTE | 2022-05-12 08:15 | NUR ---
PT SOILED GOWN AND LINENS CHANGED. PT REPOSITIONED AND SITTING UP IN BED. PT AWAKE AND EATING BREAKFAST. PT ON NEWSPAPER DELIVERY DRIVER
--- NOTE | 2022-05-12 09:30 | NUR ---
ATTEMPT TO CONTACT MD RAMIREZ . NO ANSWER, MESSAGE LEFT.
--- NOTE | 2022-05-12 11:11 | NUR ---
CALL BACK FROM MD RAMIREZ. UPDATED ON PT STATUS. VERBAL ORDERS RECEIVED, READ BACK AND CARRIED OUT. 650mg tylenol po q4h prn - mild pain 5mg norco po q4h prn - moderate 10mg norco po q4h prn - severe
[2022-05-12] MEDS ORDERED: HYDROcodone/APAP 5/325 MG 1 TAB TAB PO PRN (11:25)
[2022-05-12] MEDS ORDERED: ACETAMINOPHEN 325 MG TAB PO PRN (11:25)
--- NOTE | 2022-05-12 11:32 | NUR ---
PT NIECE MINE UPDATED ON PT STATUS.
--- NOTE | 2022-05-12 12:15 | NUR ---
PT PROVIDED W/ LUNCH. PT AWAKE AND EATING IN BED
[2022-05-12] MEDS: HYDROcodone/APAP 10/325 MG 1 TAB TAB PO PRN ×3 (12:43→20:21)
--- NOTE | 2022-05-12 13:15 | NUR ---
PT REPORTS BACK RELIEF. PT REPOSITIONED W/ HOB RAISED. BED LOCKED AT LOWEST POSITION, BED RAIL UP X2.
[2022-05-12] MEDS ORDERED: ONDANSETRON 4 MG/2 ML VIAL IVP PRN (13:35)
--- NOTE | 2022-05-12 15:40 | NUR ---
Note kim in ED - 05/12/22 at 1557 by PHSEP Patient will be admitted to care of JAMES Alberts Admited to ICU per hospital convinience. Will go to rooM 7. Belongings list completed. Report to JANUARY CARLO.
--- NOTE | 2022-05-12 15:40 | NUR ---
Alin alvarez in ED - 05/12/22 at 1556 by PHSEP Patient will be admitted to care of JAMES Abreu. Admited to ICU. Will go to ro[facility] 7. Belongings list completed. Report to January.
--- NOTE | 2022-05-12 15:45 | NUR ---
Chart checked and completed. The patient's care was reviewed and supervised by Matilde Sheldon RN.
[2022-05-12 16:00] VITALS: BP 152/116
--- NOTE | 2022-05-12 16:00 | NUR ---
ADMITTED FROM ED. REPORT RECEIVED FROM CAROL.
--- NOTE | 2022-05-12 16:30 | NUR ---
PATIENT AWAKE AND ALERT. MOVES ALL EXTREMITIES. SPEECH CLEAR. LEFT AC #20G SL IN PLACE. D5NS STARTED AT 50ML/HR. RIGHT IJ TUNNELED DIALYSIS CATHETER. HEART SOUNDS REGULAR. MONITOR SR. PERIPHERAL PULSES PALPABLE. NO EDEMA NOTED. ANTERIOR/LATERAL BREATH SOUNDS DIMINISHED. ON RA WITH SA02 97%. ABDOMEN ROUND, NONTENDER. ACTIVE BOWEL SOUNDS.
--- NOTE | 2022-05-12 16:50 | NUR ---
COMPLAINED OF LOW BACK PAIN. BENNETT [address] MERRITT HERE TO SEE PATIENT. ORDERS RECEIVED.
[2022-05-12] MEDS ORDERED: cefTRIAXone 1,000 MG VIAL ONE (17:06)
--- NOTE | 2022-05-12 19:39 | NUR ---
REPORT GIVEN TO CAROL BISHOP. PATIENT TRANSFERRED TO [facility].
--- NOTE | 2022-05-12 19:45 | NUR ---
RECEIVED PT FROM ICU VIA BED, PT AAOX4, ABLE TO MAKE NEEDS KNOWN, COMPLAINING OF BACK PAIN, WILL MEDICATE PRN, NO SOB NOTED, DENIES N/V AT THIS TIME, WITH RT CHEST HD CATH IN PLACE, DRESSING DRY AND INTACT, MAINTAINED ON DROPLET PRECAUTION DUE TO INFLUENZA B POSITIVE, SAFETY MEASURES IN PLACE, CALL LIGHT WITHIN REACH.
[2022-05-12 20:00] VITALS: BP 176/91
--- NOTE | 2022-05-12 20:21 | NUR ---
VITAL SIGNS TAKEN, BP-176/91, TEMP-100.3, MEDICATED PRN WITH DR Brady LAMBERT PAGED REGARDING ELEVATED BP, AWAITING CALL BACK, ALL NEEDS ATTENDED.
[2022-05-12] MEDS ORDERED: hydrALAZINE 25 MG TAB PO PRN (22:25)
--- NOTE | 2022-05-12 22:40 | NUR ---
PT VOIDED FREELY USING URINAL, 150ML CLEAR YELLOW URINE NOTED, PROVIDED WITH WATER AND SANDWICH, TOLERATED WELL, MONITORED CLOSELY.
[2022-05-13] VITALS: BP 145/60
[2022-05-13 04:00] VITALS: BP 140/77
--- NOTE | 2022-05-13 04:00 | NUR ---
PT SLEEPING, EASILY AROUSABLE, VITAL SIGNS STABLE, DENIES ANY PAIN, NO SOB NOTED, CONTINUE TO MONITOR CLOSELY.
[2022-05-13 06:36] LABS: ALBUMIN 2.5 g/dL (3.4-5.0); ANION GAP 17.5 (8-16); CARBON DIOXIDE 24.2 mmol/L (21-32); MAGNESIUM 2.3 mg/dL (1.8-2.4); PHOSPHORUS 5.1 mg/dL (2.5-4.9); POTASSIUM 4.7 mmol/L (3.5-5.1); TOTAL BILIRUBIN 0.3 mg/dL (0.0-1.0)
[2022-05-13 06:51] LABS: CREATININE 7.9 mg/dL (0.6-1.3)
[2022-05-13 07:07] LABS: BASOPHILS % (AUTO) 0.5 % (0.0-2.0); EOSINOPHILS % (AUTO) 0.7 % (0.0-4.0); HEMATOCRIT 30.8 % (36-52); HEMOGLOBIN 10.5 g/dL (12.0-18.0); LYMPHOCYTES # (AUTO) 0.9 K/uL (2.0-11.5); LYMPHOCYTES % (AUTO) 23.1 % (20.5-51.1); MEAN CORPUSCULAR HEMOGLOBIN 32 pg (27-31); MEAN CORPUSCULAR HGB CONC 34 g/dL (33-37); MONOCYTES # (AUTO) 0.4 K/uL (0.8-1.0); MONOCYTES % (AUTO) 9.6 % (1.7-9.3); NEUTROPHILS # (AUTO) 2.4 K/uL (1.8-7.7); NEUTROPHILS % (AUTO) 66.1 % (42.2-75.2); PLATELET COUNT (AUTO) 108 K/uL (140-450); RED BLOOD CELL COUNT(AUTO) 3.24 MIL/uL (4.20-6.10); RED CELL DISTRIBUTION WIDTH 13.6 % (11.6-13.7); WHITE BLOOD COUNT (AUTO) 3.7 K/uL (4.8-10.8)
--- NOTE | 2022-05-13 07:17 | NUR ---
PT SLEEPING, NO SIGNS OF DISTRESS, REPORT GIVEN TO CAROL GÓMEZ FOR CONTINUITY OF CARE.
[2022-05-13 07:57] VITALS: BP 152/88
--- NOTE | 2022-05-13 08:12 | NUR ---
PT IN BED AOX4, VSS, NAD NOTED. DENIES PAIN. SAFETY MEASURES IN PLACE.
--- NOTE | 2022-05-13 08:49 | NUR ---
PATIENT HAS BEEN SCREENED AND CATEGORIZED HIGH NUTRITION RISK. PATIENT WILL BE SEEN WITHIN 1-2 DAYS OF ADMISSION. 05/13/22 REFERRAL RECEIVED FOR NAUSEA AND VOMITING OVER THREE DAYS AND UNCONTROLLED DIABETES JUANCARLOS PORRAS RD
[2022-05-13] MEDS: OSELTAMIVIR PHOSPHATE 30 MG CAP PO SCH (09:04)
--- NOTE | 2022-05-13 09:28 | NUR ---
PT TOLERATED AM MEDICATIONS AND BREAKFAST. PT SAFETY MEASURES IN PLACE.
[2022-05-13] MEDS: ALBUTEROL 0.083% 2.5 MG/3 ML NEBU INH PRN ×2 (09:59→19:12)
[2022-05-13 12:00] VITALS: BP 146/82
--- NOTE | 2022-05-13 14:39 | NUR ---
DC PLANNING: THE PATIENT PRESENTED FROM HOME WITH C/O FLU LIKE S/S X 2 DAYS. H/O ESRD, ASTHMA AND HTN. POSITIVE FOR INFLUENZA B, WBC 2.7, GIVEN ROCEPHIN, TAMIFLU AND IVF'S IN ED. ORDERS FOR CONSULTS WITH NEPHROLOGY, ONCOLOGY AND ID. CONTINUED ON ROCEPHIN IV AND TAMIFLU. TERESA SPOKE WITH THE PATIENT AT BEDSIDE AND CONFIRMED HIS ADDRESS AND PHONE NUMBER. HE LIVES IN A MOTEL ALONE AND GOES TO [facility] AT 0800. TRANSPORT IS PROVIDED BY RIGHT ON TIME THROUGH [facility]. THE PATIENT SEES HIS PMD DR NAIDU MONTHLY AND IS INDEPENDENT IN ALL ACTIVITIES. HE IS ABLE TO AMBULATE WITHOUT LIMITATION USING A FWW AND HAS NO H/O HOME HEALTH. HIS NIECE WILL PROVIDE TRANSPORT HOME WHEN HE'S CLINICALLY STABLE. TERESA SPOKE WITH LUCY AT [facility] [address] TO NOTIFY THEM OF THE INFLUENZA B STATUS AND TREATMENT WITH TAMIFLU. TERESA WILL FOLLOW.
--- NOTE | 2022-05-13 15:41 | NUR ---
DC PLANNING JESSICA MET WITH PT AT BEDSIDE FOR THE PURPOSE OF COLLECTING COLLATERAL INFORMATION. PATIENT REPORTS LIVING ALONE AT THE ADDRESS ON FILE, WHICH HE REPORTS A MOTEL. PATIENT HAS RESIDED AT [facility] FOR THE LAST THREE YEARS. PATIENT IS ON A FIXED INCOME (SSI) AND DENIES FOOD INSECURITIES. PT REPORTS EMERGENCY CONTACT NIECE, MINE JOHNSTON [phone] AND SISTER, CRISTINA ARIZMENDI. PATIENT DENIED AD IN PLACE AND DECLINED AD OFFERED BY JESSICA. PATIENT RECEIVES DIALYSIS TX AT [facility] IN [place], CHAIR TIMES // 8:30-12PM. TRANSPORTATION PROVIDED BY RIGHT ON TIME. LAST VISIT W/PCP 4 WEEKS PRIOR. PT UNABLE TO RECALL LAST VISIT W/MEDICAL LEGAL INVESTIGATOR. PT REPORTS BEING "SEMI-CONSISTENCE" WITH MEDICATIONS DUE TO SIDE EFFECTS. JESSICA ENCOURAGED PT TO SPEAK WITH NIDIA.PATIENT RECEIVES MEDICATION FROM [facility] IN [place], WHEN NEEDED AND DENIES BARRIERS IN ACCESSING NEEDED MEDICATIONS. PATIENT REPORTS BEING AMBULATORY WITH DME ASSISTANCE; WALKER & WHEELCHAIR. PATIENT REPORTS THAT FAMILY WILL PROVIDED TRANSPORTATION AND PROVIDE CARE IF NEEDED, ONCE CLEARED FOR DC. JESSICA PROVIDED PATIENT WITH EMERGENCY ASSISTANCE RESOURCES AND LOW COST HOUSING RESOURCES
[2022-05-13 16:09] VITALS: BP 132/88
--- NOTE | 2022-05-13 16:47 | NUR ---
05/13/22 RD INITIAL ASSESSMENT COMPLETED PLEASE REFER TO NUTRITION ASSESSMENT UNDER CARE ACTIVITY FOR ESTIMATED NUTRITIONAL NEEDS. 1. RECOMMEND RENAL+CCHO 60GM DIET 2. RECOMMEND NEPRO BID FOR NUTRITION SUPPORT 3. RD TO FOLLOW-UP 3-5 DAYS, MODERATE RISK JUANCARLOS PORRAS, RD
--- NOTE | 2022-05-13 18:33 | NUR ---
PT IS AOX4, VSS, NAD NOTED THROUGHOUT SHIFT. PT STARTED ON MEDICATION FOR INFLUENZA B. PT AWARE OF POC, QUESTIONS/CONCERNS ANSWERED AMND SAFETY MEASURES IN PLACE.
--- NOTE | 2022-05-13 19:22 | NUR ---
ENDORSED PT TO SWITCH MAKER NURSE FOR CONTINUITY OF CARE.
--- NOTE | 2022-05-13 19:25 | NUR ---
RECEIVED REPORT FROM MORNING RN. PATIENT RESTING ON BED. NO COMPLAINTS AT THIS TIME. BREATHING EVEN AND UNLABORED ON ROOM AIR. MAINTAINED ON TELEMETRY MONITORING. WILL CONTINUE TO MONITOR PATIENT.
[2022-05-13 20:00] VITALS: BP 142/73
[2022-05-14] VITALS: BP 147/82
--- NOTE | 2022-05-14 00:30 | NUR ---
PATIENT ASLEEP ON BED. NO UNTOWARD SIGNS AND SYMPTOMS OBSERVED. WILL CONTINUE TO MONITOR PATIENT.
[2022-05-14 04:00] VITALS: BP 139/68
[2022-05-14 07:22] LABS: BASOPHILS % (AUTO) 0.5 % (0.0-2.0); EOSINOPHILS % (AUTO) 1.3 % (0.0-4.0); HEMATOCRIT 31.1 % (36-52); HEMOGLOBIN 10.4 g/dL (12.0-18.0); LYMPHOCYTES % (AUTO) 36.1 % (20.5-51.1); MEAN CORPUSCULAR HEMOGLOBIN 32 pg (27-31); MEAN CORPUSCULAR HGB CONC 33 g/dL (33-37); MONOCYTES # (AUTO) 0.3 K/uL (0.8-1.0); MONOCYTES % (AUTO) 12.1 % (1.7-9.3); NEUTROPHILS # (AUTO) 1.4 K/uL (1.8-7.7); PLATELET COUNT (AUTO) 123 K/uL (140-450); RED BLOOD CELL COUNT(AUTO) 3.24 MIL/uL (4.20-6.10); RED CELL DISTRIBUTION WIDTH 13.8 % (11.6-13.7); WHITE BLOOD COUNT (AUTO) 2.9 K/uL (4.8-10.8)
--- NOTE | 2022-05-14 07:22 | NUR ---
REPORT GIVEN TO MORNING SHIFT RNHOWIE. PATIENT RESTING ON BED, STABLE WITH NO COMPLAINTS.
--- NOTE | 2022-05-14 07:27 | NUR ---
RECEIVED PT FROM NIGHT RN, PT IS ALERT AND ORIENTED, ON DROPLET ISOLATION FOR INFLUENZA B POSITIVE, ON ROOM AIR, LYING ON THE BED WITH SIDE RAILS UP ANC ALL LIGHT WITHIN REACH, IV LINE NOTED ON THE LAC G. 20 ON TKO PT HAS A RIGHT IJ IN PLACE, ON DIALYSIS, NO SIGN OF DISTRESS NOTED AND WILL CONTINUE TO MONITOR PT.
[2022-05-14 07:31] LABS: ANION GAP 20.6 (8-16); CARBON DIOXIDE 24.4 mmol/L (21-32)
[2022-05-14 08:00] VITALS: BP 139/75
[2022-05-14 08:04] LABS: MAGNESIUM 2.5 mg/dL (1.8-2.4); PHOSPHORUS 6.6 mg/dL (2.5-4.9)
[2022-05-14] MEDS: ALBUTEROL 0.083% 2.5 MG/3 ML NEBU INH PRN (08:31)
[2022-05-14] MEDS: OSELTAMIVIR PHOSPHATE 30 MG CAP PO SCH (09:32)
--- NOTE | 2022-05-14 09:32 | NUR ---
PT WAS GIVEN THE SCHEDULED AM MEDICATION NOW,
--- NOTE | 2022-05-14 11:10 | NUR ---
DIALYSIS STARTED TO PT NOW.
[2022-05-14 12:00] VITALS: BP 135/79
--- NOTE | 2022-05-14 14:40 | NUR ---
DIALYSIS IS FINISHED NOW 2LITERS OUTPUT, BP IS 136/72, PULSE IS 65, TEMPERATURE IS 98
[2022-05-14] MEDS: HYDROcodone/APAP 10/325 MG 1 TAB TAB PO PRN ×2 (14:58→21:05)
--- NOTE | 2022-05-14 14:58 | NUR ---
PT WAS MEDICATED FOR PAIN OF 8
[2022-05-14 16:00] VITALS: BP 132/72
--- NOTE | 2022-05-14 16:44 | NUR ---
PT WAS GIVEN THE SCHEDULED IVPB MEDICATION NOW.
--- NOTE | 2022-05-14 19:31 | NUR ---
ENDORSED PT TO NIGHT RN FOR CONTINUITY OF CARE, PT IS STABLE AT THIS TIME.
[2022-05-14 20:00] VITALS: BP 156/66
[2022-05-15 04:00] VITALS: BP 148/78
[2022-05-15] MEDS: HYDROcodone/APAP 10/325 MG 1 TAB TAB PO PRN ×3 (04:22→20:32)
[2022-05-15 07:00] LABS: BASOPHILS % (AUTO) 0.4 % (0.0-2.0); EOSINOPHILS # (AUTO) 0.1 K/uL (0-0.4); EOSINOPHILS % (AUTO) 3.6 % (0.0-4.0); HEMATOCRIT 29.2 % (36-52); LYMPHOCYTES # (AUTO) 0.8 K/uL (2.0-11.5); MEAN CORPUSCULAR HEMOGLOBIN 33 pg (27-31); MEAN CORPUSCULAR HGB CONC 34 g/dL (33-37); MEAN CORPUSCULAR VOLUME 95.4 fL (80-94); MONOCYTES # (AUTO) 0.4 K/uL (0.8-1.0); MONOCYTES % (AUTO) 13.4 % (1.7-9.3); NEUTROPHILS # (AUTO) 1.5 K/uL (1.8-7.7); NEUTROPHILS % (AUTO) 53.6 % (42.2-75.2); PLATELET COUNT (AUTO) 135 K/uL (140-450); RED BLOOD CELL COUNT(AUTO) 3.06 MIL/uL (4.20-6.10); RED CELL DISTRIBUTION WIDTH 13.8 % (11.6-13.7); WHITE BLOOD COUNT (AUTO) 2.8 K/uL (4.8-10.8)
[2022-05-15 08:00] VITALS: BP 93/56
[2022-05-15 08:02] LABS: ALBUMIN 2.3 g/dL (3.4-5.0); ANION GAP 13.8 (8-16); CARBON DIOXIDE 27.2 mmol/L (21-32); MAGNESIUM 2.3 mg/dL (1.8-2.4); PHOSPHORUS 4.8 mg/dL (2.5-4.9); TOTAL BILIRUBIN 0.3 mg/dL (0.0-1.0)
[2022-05-15 08:37] LABS: CREATININE 5.7 mg/dL (0.6-1.3)
[2022-05-15] MEDS: OSELTAMIVIR PHOSPHATE 30 MG CAP PO SCH (09:36)
[2022-05-15 16:00] VITALS: BP 146/84
[2022-05-15] MEDS ORDERED: OSEL30CA2 PO (17:57)
[2022-05-15 20:00] VITALS: BP 130/75
--- NOTE | 2022-05-15 20:35 | NUR ---
RECEIVED IN BED ASSESSMENT COMPLETED COMPLAINS OF GENRAL BODY PAIN 05/15 MEDICATED WITH NORCO CALL LIGHT IN REACH PLAN OF CARE REVIEWED WILL CONTINUE TO MONITOR AND ASSESS
--- NOTE | 2022-05-16 00:30 | NUR ---
CALLED GHADA AND MADE AWARE THAT THE PATIENT HAS AN ORDER FOR DIALYSIS TOMORROW MORNING AND IF SHE CAN DO IT EARLY BECAUSE THE PATIENT IS SCHEDULED FOR DISCHARGE. URRUTIA AWARE.
[2022-05-16 04:00] VITALS: BP 132/68
[2022-05-16] MEDS: HYDROcodone/APAP 10/325 MG 1 TAB TAB PO PRN ×3 (05:45→15:51)
[2022-05-16 07:17] LABS: BASOPHILS % (AUTO) 0.8 % (0.0-2.0); EOSINOPHILS # (AUTO) 0.1 K/uL (0-0.4); EOSINOPHILS % (AUTO) 4.4 % (0.0-4.0); HEMATOCRIT 27.7 % (36-52); HEMOGLOBIN 9.6 g/dL (12.0-18.0); LYMPHOCYTES % (AUTO) 30.6 % (20.5-51.1); MEAN CORPUSCULAR HEMOGLOBIN 33 pg (27-31); MEAN CORPUSCULAR HGB CONC 35 g/dL (33-37); MEAN CORPUSCULAR VOLUME 95.7 fL (80-94); MONOCYTES # (AUTO) 0.3 K/uL (0.8-1.0); MONOCYTES % (AUTO) 9.1 % (1.7-9.3); NEUTROPHILS # (AUTO) 1.9 K/uL (1.8-7.7); NEUTROPHILS % (AUTO) 55.1 % (42.2-75.2); PLATELET COUNT (AUTO) 148 K/uL (140-450); RED CELL DISTRIBUTION WIDTH 13.6 % (11.6-13.7); WHITE BLOOD COUNT (AUTO) 3.4 K/uL (4.8-10.8)
[2022-05-16 07:28] LABS: ANION GAP 14.8 (8-16); CARBON DIOXIDE 26.3 mmol/L (21-32); POTASSIUM 4.1 mmol/L (3.5-5.1)
--- NOTE | 2022-05-16 07:30 | NUR ---
RECEIVED REPORT FROM NIGHTSHIFT NURSE. PT A/O X4. NO SOB NOTED. RR EVEN & UNLABORED. ON RA. DENIES PAIN AT THIS TIME. IV TO SL. NEEDS MET AT THIS TIME. PLAN FOR HD TODAY AND AFTERWARDS DISCHARGE. SAFETY MEASURES IN PLACE.
[2022-05-16 08:00] VITALS: BP 139/70
[2022-05-16 08:00] LABS: MAGNESIUM 2.2 mg/dL (1.8-2.4); PHOSPHORUS 4.9 mg/dL (2.5-4.9)
[2022-05-16 08:09] LABS: CREATININE 6.8 mg/dL (0.6-1.3)
[2022-05-16] MEDS: OSELTAMIVIR PHOSPHATE 30 MG CAP PO SCH (09:19)
--- NOTE | 2022-05-16 09:57 | NUR ---
HEMODIALYSIS STARTED AT BEDSIDE.
[2022-05-16 10:37] VITALS: BP 139/70
--- NOTE | 2022-05-16 13:54 | NUR ---
HEMODIALYSIS COMPLETED AT BEDSIDE.
--- NOTE | 2022-05-16 13:55 | NUR ---
PT REFUSING TO GET DISCHARGED UNLESS MD PRESCRIBES HIM PAIN MEDICATION. CONTACTED MD. AWAITING RESPONSE.
--- NOTE | 2022-05-16 14:53 | NUR ---
PT REFUSING TO GET DISCHARGED. STATES "I FEEL WEAK". IN NO APPARENT DISTRESS. ON RA. 97.4, 64, 16, 144/74, 97% RA. VSS.
--- NOTE | 2022-05-16 16:30 | NUR ---
DISCHARGE INSTRUCTIONS GIVEN. PT VERBALIZED UNDERSTANDING.
[2022-05-16] MEDS ORDERED: ACET-8386 PO (18:09)
--- NOTE | 2022-05-16 18:30 | NUR ---
SPOKE WITH PT'S NIECE (MIEN) AND SHE STATES PHARMACY DOES NOT CARRY THE MEDICATION. CONTACTED DR. VARGHESE AND STATES PT DOES NOT NEED A PRESCRIPTION. EXPLAINED TO PT'S NIECE AND PT. VERBALIZED UNDERSTANDING. IV CATHETER DISCONTINUED, CATHETER INTACT, NO ACTIVE BLEEDING.
== END 2022-05-16 17:30 | disposition home or self-care (01) | DRG 871 ==
LOC: MED 18:42 → MTU 21:25 → MIC 05-12 15:31 → MTU 05-12 19:48
PROVIDERS: ADMIT Preventive Medicine Preventive Medicine/Occupational Environmental Medicine; ATTEND Preventive Medicine Preventive Medicine/Occupational Environmental Medicine
PROC: 5A1D70Z Performance of Urinary Filtration, Intermittent, Less than 6 Hours Per Day (ICD-10-PCS; principal; 2022-05-14)
PROC: 5A1D70Z Performance of Urinary Filtration, Intermittent, Less than 6 Hours Per Day (ICD-10-PCS; 2022-05-16)
DX: A41.9 Sepsis, unspecified organism (principal); J18.9 Pneumonia, unspecified organism; N18.6 End stage renal disease; D61.818 Other pancytopenia; E87.1 Hypo-osmolality and hyponatremia; I12.0 Hypertensive chronic kidney disease with stage 5 chronic kidney disease or end stage renal disease; J10.1 Influenza due to other identified influenza virus with other respiratory manifestations; R74.01 Elevation of levels of liver transaminase levels; E88.09 Other disorders of plasma-protein metabolism, not elsewhere classified; J45.909 Unspecified asthma, uncomplicated; Z20.822 Contact with and (suspected) exposure to COVID-19; E83.39 Other disorders of phosphorus metabolism; D64.9 Anemia, unspecified; D69.6 Thrombocytopenia, unspecified; E83.52 Hypercalcemia; E11.22 Type 2 diabetes mellitus with diabetic chronic kidney disease; E83.41 Hypermagnesemia; E83.51 Hypocalcemia; E11.65 Type 2 diabetes mellitus with hyperglycemia; Z88.1 Allergy status to other antibiotic agents; Z88.8 Allergy status to other drugs, medicaments and biological substances; Z79.899 Other long term (current) drug therapy; Z99.2 Dependence on renal dialysis
CPT/HCPCS: 36415; 70450; 71045; 74018; 80048; 80053; 80305; 81001; 82607; 83735; 84100; 84484; 85025; 85045; 85384; 85651; 86140; 87040; 87081; 93005; 94640; 96365; 96375; 99285; G0482; J0692; J0696; J1200; J1644; J2060; J2765; J7060; J7613; J8597; Q0092

== ENCOUNTER 2022-11-26 10:32 | Inpatient (IN) | payer OTHER ==
[~2022-11-26] VITALS: Ht 162.6 cm; Wt 97.1 kg
[~2022-11-26 10:32] MED LIST changes: +ACET-8905 PO; -AMOX1TAB15 PO; -ASPI-1822 PO; -ATOR10TA PO; -CIPR500T4 PO; -FER325 PO; -HUMSLIDE SUBQ; +OSEL30CA2 PO; -PROC10I SUBQ; -PYR100 PO
[2022-11-26 10:38] VITALS: BP 186/83
[2022-11-26 11:17] LABS: BASOPHILS % (AUTO) 0.6 % (0.0-2.0); EOSINOPHILS # (AUTO) 0.1 K/uL (0-0.4); EOSINOPHILS % (AUTO) 2.1 % (0.0-4.0); HEMATOCRIT 27.7 % (36-52); HEMOGLOBIN 9.4 g/dL (12.0-18.0); LYMPHOCYTES # (AUTO) 0.7 K/uL (2.0-11.5); LYMPHOCYTES % (AUTO) 10.8 % (20.5-51.1); MEAN CORPUSCULAR HEMOGLOBIN 33 pg (27-31); MEAN CORPUSCULAR HGB CONC 34 g/dL (33-37); MEAN CORPUSCULAR VOLUME 98.7 fL (80-94); MONOCYTES # (AUTO) 0.5 K/uL (0.8-1.0); MONOCYTES % (AUTO) 8.4 % (1.7-9.3); NEUTROPHILS # (AUTO) 4.9 K/uL (1.8-7.7); NEUTROPHILS % (AUTO) 78.1 % (42.2-75.2); PLATELET COUNT (AUTO) 180 K/uL (140-450); RED BLOOD CELL COUNT(AUTO) 2.81 MIL/uL (4.20-6.10); RED CELL DISTRIBUTION WIDTH 13.7 % (11.6-13.7); WHITE BLOOD COUNT (AUTO) 6.3 K/uL (4.8-10.8)
--- NOTE | 2022-11-26 11:25 | NUR ---
PATIENT BIBAM D/T SOB. PATIENT STATES HE MISSED DIALYSIS ON FRIDAY AND FRIDAY AND HAS BEEN FEEELING SOB SINCE FRIDAY. PATIENT PMH DM, HTN, ESRD. PATIENT'S DIALYSIS ACCESS IS RIGHT ARM WITH BRUIT AND THRILL. PATIENT REPORTS HE IS ABLE TO STILL MAKE URINE. PATIENT IS ALERT AND ORIENTED X 4. NO S/S OF ACUTE DISTRESS AT THIS TIME. MADE COMFORTABLE IN BED. ERMD AWARE OF PATIENT STATUS. WILL CONTINUE WITH PLAN OF CARE
[2022-11-26 11:30] LABS: PROTHROMBIN TIME 11.4 secs (10.8-13.4)
[2022-11-26 11:38] LABS: ALBUMIN 3.6 g/dL (3.4-5.0); CARBON DIOXIDE 25.3 mmol/L (21-32); TOTAL BILIRUBIN 0.5 mg/dL (0.0-1.0)
[2022-11-26 12:00] LABS: CREATININE 9.7 mg/dL (0.6-1.3); POTASSIUM 7.3 mmol/L (3.5-5.1)
[2022-11-26] MEDS ORDERED: INSULIN REGULAR, HUMAN 100 UNIT/ML VIAL IVP ONE (12:10)
[2022-11-26] MEDS ORDERED: SODIUM BICARBONATE 8.4% PFS 50 MEQ/50 ML SYR IVP ONE (12:10)
[2022-11-26] MEDS ORDERED: ALBUTEROL 0.083% 2.5 MG/3 ML NEBU INH ONE (12:10)
[2022-11-26] MEDS ORDERED: SODIUM ZIRCONIUM CYCLOSILICATE 10 GM POWD.PACK PO ONE (12:10)
[2022-11-26] MEDS ORDERED: DEXTROSE 50% 50 ML SYR IVP ONE (12:10)
--- NOTE | 2022-11-26 14:58 | NUR ---
Stat hemodialysis admission .
[2022-11-26] MEDS ORDERED: DOCUSATE SODIUM 100 MG GELCAP PO PRN (15:05)
[2022-11-26] MEDS ORDERED: ZOLPIDEM 5 MG TAB PO PRN (15:05)
[2022-11-26] MEDS ORDERED: ONDANSETRON 4 MG/2 ML VIAL IM/IVP PRN (15:05)
[2022-11-26] MEDS ORDERED: guaiFENesin DM 200/20 MG-10 ML 10 ML UDC PO PRN (15:05)
[2022-11-26] MEDS ORDERED: ACETAMINOPHEN 325 MG TAB PO PRN (15:05)
[2022-11-26] MEDS ORDERED: POTASSIUM CHLORIDE 10 MEQ TABER PO PRN (15:05)
--- NOTE | 2022-11-26 15:15 | NUR ---
RECEIVED PT FROM RENEE. PT IS AWAKE AND ALERT. ROOM AIR. A FIB. IV TO LT HAND 22G, SALINE LOCKED. HD CATHETER TO RT SIDE. RT HEEL DRY ULCER. CONTINENT. 2 GM SODIUM DIET. URINAL IN USE. GENERALIZED WEAKNESS, BEDREST. BED TO LOWEST POSITION, HOB ELEVATED, CALL LIGHT WITHIN REACH, WILL CONTINUE TO MONITOR.
[2022-11-26 15:21] LABS: CARBON DIOXIDE 27.3 mmol/L (21-32)
--- NOTE | 2022-11-26 15:22 | NUR ---
Patient will be admitted to care of DR. CARRERO. Admited to ICU. Will go to room 7. Belongings list completed. Report to CAROL HENDRIX.
[2022-11-26 15:29] LABS: CREATININE 9.6 mg/dL (0.6-1.3); POTASSIUM 6.3 mmol/L (3.5-5.1)
--- NOTE | 2022-11-26 15:50 | NUR ---
OVERRIDE HEPARIN 5000 UNIT X 2 DOSES FOR HEMODIALYSIS NURSE.
[2022-11-26 15:55] LABS: PROTHROMBIN TIME 11.3 secs (10.8-13.4)
[2022-11-26 15:57] LABS: MAGNESIUM 2.8 mg/dL (1.8-2.4); PHOSPHORUS 5.8 mg/dL (2.5-4.9)
[2022-11-26 16:00] VITALS: BP 163/85
[2022-11-26] MEDS: MORPHINE SULFATE 2 MG/ML SYR IVP PRN ×2 (17:12→22:47)
[2022-11-26 18:00] VITALS: BP 116/68
[2022-11-26] MEDS ORDERED: DEXTROSE 50% 50 ML SYR IVP PRN (18:00)
[2022-11-26] MEDS ORDERED: INSULIN LISPRO SLIDING SCALE 100 UNITS/ML VIAL SUBQ PRN (18:00)
--- NOTE | 2022-11-26 18:10 | NUR ---
PT COMPLETED HD AND TOLERATED WELL. 3L OF FLUID REMOVED VIA HD. VITAL SIGNS STABLE AT THIS TIME. ORDER FOR STAT BMP PLACED PER MD ORDER. WILL CONTINUE TO MONITOR.
[2022-11-26 18:43] LABS: ANION GAP 13.9 (8-16); CARBON DIOXIDE 30.7 mmol/L (21-32); POTASSIUM 4.6 mmol/L (3.5-5.1)
[2022-11-26 18:47] LABS: CREATININE 4.6 mg/dL (0.6-1.3)
--- NOTE | 2022-11-26 19:22 | NUR ---
ENDORSED TO ELECTRICAL HIGH TENSION TESTER LUNA MEDINA FOR CONTINUITY OF CARE. ALL QUESTION ANSWERED.
--- NOTE | 2022-11-26 19:30 | NUR ---
RECEIVED REPORT FROM DAY SHIFT RNPADMINI. PER REPORT PT. ALERT, ORIENTED X 4, HOWEVER WITH GENERALIZED WEAKNESS. PT. IS ON ROOM AIR WITH 02 SAT 97%. PT.AFIB ON BRICK WHEELER. IV SITE TO LEFT HAND 20G CAPPED AND FLUSHED. PT. A HEMODIALYSIS PT. WITH LEFT JOE CATHETER CAPPED AND INTACT. DIALYSIS DONE FROM DAY SHIFT WITH 3L OUTPUT.DIET ON 2 GM NA. PT. USE URINAL WITH NO PROBLEM URINATING. SKIN WITH RIGHT HEEL OPEN WOUND, DRY AND CRUSTED, PLEASE SEE WOUND DOCUMENTATION. PT. REPOSITIONED AND PLACED COMFORTABLY IN BED. PROVIDED SAFE AND QUIET ENVIRONMENT. NO S/S OF DISTRESS AND NO S/S OF PAIN. WILL CONT. TO MONITOR. Addendum: 11/27/22 at 0359 by Elly Valdes RN CORRECTION: HEMODIALYSIS CATHETER TO RIGHT SIDED CHEST.
[2022-11-26 20:00] VITALS: BP 136/75
[2022-11-26] MEDS ORDERED: VANCOMYCIN PER PHARMACY MC PRN (20:05)
[2022-11-26] MEDS ORDERED: VANCOMYCIN 1GM/DEXT 5% PREMIX 200 ML IV ONE (21:00)
[2022-11-26] MEDS: BLOOD GLUCOSE MONITORING 1 DEV DEV FS SCH (21:04)
[2022-11-26] MEDS ORDERED: VANCOMYCIN 1,000 MG VIAL ONE (21:57)
[2022-11-26 22:00] VITALS: BP 109/66
[2022-11-27] VITALS (12 sets, daily range): BP systolic 97–169; BP diastolic 45–85
[2022-11-27 05:10] LABS: BASOPHILS % (AUTO) 0.6 % (0.0-2.0); EOSINOPHILS # (AUTO) 0.1 K/uL (0-0.4); EOSINOPHILS % (AUTO) 1.9 % (0.0-4.0); HEMATOCRIT 27.2 % (36-52); HEMOGLOBIN 9.3 g/dL (12.0-18.0); LYMPHOCYTES # (AUTO) 0.9 K/uL (2.0-11.5); MEAN CORPUSCULAR HEMOGLOBIN 33 pg (27-31); MEAN CORPUSCULAR HGB CONC 34 g/dL (33-37); MEAN CORPUSCULAR VOLUME 97.1 fL (80-94); MONOCYTES # (AUTO) 0.7 K/uL (0.8-1.0); MONOCYTES % (AUTO) 13.4 % (1.7-9.3); NEUTROPHILS # (AUTO) 3.5 K/uL (1.8-7.7); NEUTROPHILS % (AUTO) 66.1 % (42.2-75.2); PLATELET COUNT (AUTO) 172 K/uL (140-450); RED CELL DISTRIBUTION WIDTH 13.7 % (11.6-13.7); WHITE BLOOD COUNT (AUTO) 5.2 K/uL (4.8-10.8)
[2022-11-27 05:30] LABS: ANION GAP 15.9 (8-16); CARBON DIOXIDE 27.7 mmol/L (21-32); POTASSIUM 4.6 mmol/L (3.5-5.1)
[2022-11-27 05:33] LABS: CREATININE 5.8 mg/dL (0.6-1.3)
--- NOTE | 2022-11-27 07:21 | NUR ---
REPORT GIVEN TO DAY SHIFT RNESTEFANIA FOR CONTINUITY OF CARE.
--- NOTE | 2022-11-27 07:30 | NUR ---
Opening Received report on pt. Pt AOX4, states no pain or distress at this time, on room air. IV site intact, patent. No other complaints at this time.
--- NOTE | 2022-11-27 08:00 | NUR ---
Pt refused insulin administration and states "his blood sugar gets too low from insulin" and states he "tries to avoid it." Pt also states blood sugar range from 100s-160s without insulin coverage.
[2022-11-27] MEDS: BLOOD GLUCOSE MONITORING 1 DEV DEV FS SCH ×4 (08:40→20:29)
[2022-11-27] MEDS: ATORVASTATIN 20 MG TAB PO SCH (08:41)
[2022-11-27] MEDS: SEVELAMER CARBONATE 800 MG TAB PO SCH ×4 (08:41→17:00)
[2022-11-27] MEDS: carvediloL 6.25 MG TAB PO SCH (08:41)
[2022-11-27] MEDS: PANTOPRAZOLE 40 MG TABEC PO SCH (08:41)
--- NOTE | 2022-11-27 09:00 | NUR ---
Pt noted with moderate amount loose BM. Rosemary care and linen change done. Pt able to move and reposition, tolerated well.
--- NOTE | 2022-11-27 09:27 | NUR ---
PATIENT HAS BEEN SCREENED AND CATEGORIZED MODERATE NUTRITION RISK. PATIENT WILL BE SEEN WITHIN 3-5 DAYS OF ADMISSION. REFERRAL REQUESTED ON 11/27/22. REFERRAL DOES NOT MEET HIGH RISK CRITERIA PER HOSPITAL POLICY. PT WILL BE SEEN AND ASSESSED ACCORDING TO THE NUTRITION CARE POLICY. REVIEWED BY JUANCARLOS PORRAS RD
--- NOTE | 2022-11-27 12:20 | NUR ---
Pt states IV site was removed when he was asleep. Catheter tip intact, bleeding controlled.
--- NOTE | 2022-11-27 12:30 | NUR ---
New IV site left FA 20G inserted via aseptic, no infiltration noted. Pt tolerated well.
[2022-11-27] MEDS: MORPHINE SULFATE 2 MG/ML SYR IVP PRN ×2 (12:46→20:02)
[2022-11-28] VITALS (10 sets, daily range): BP systolic 120–164; BP diastolic 70–82
[2022-11-28 05:47] LABS: BASOPHILS % (AUTO) 0.7 % (0.0-2.0); EOSINOPHILS # (AUTO) 0.3 K/uL (0-0.4); EOSINOPHILS % (AUTO) 5.5 % (0.0-4.0); HEMATOCRIT 27.5 % (36-52); HEMOGLOBIN 9.4 g/dL (12.0-18.0); LYMPHOCYTES # (AUTO) 1.3 K/uL (2.0-11.5); LYMPHOCYTES % (AUTO) 23.3 % (20.5-51.1); MEAN CORPUSCULAR HEMOGLOBIN 33 pg (27-31); MEAN CORPUSCULAR HGB CONC 34 g/dL (33-37); MEAN CORPUSCULAR VOLUME 97.6 fL (80-94); MONOCYTES # (AUTO) 0.6 K/uL (0.8-1.0); NEUTROPHILS # (AUTO) 3.4 K/uL (1.8-7.7); NEUTROPHILS % (AUTO) 60.5 % (42.2-75.2); PLATELET COUNT (AUTO) 184 K/uL (140-450); RED BLOOD CELL COUNT(AUTO) 2.81 MIL/uL (4.20-6.10); RED CELL DISTRIBUTION WIDTH 13.3 % (11.6-13.7); WHITE BLOOD COUNT (AUTO) 5.6 K/uL (4.8-10.8)
[2022-11-28] MEDS: MORPHINE SULFATE 2 MG/ML SYR IVP PRN ×2 (06:10→15:32)
[2022-11-28 06:15] LABS: ANION GAP 15.3 (8-16); CARBON DIOXIDE 28.6 mmol/L (21-32); POTASSIUM 4.9 mmol/L (3.5-5.1)
[2022-11-28 06:21] LABS: CREATININE 7.1 mg/dL (0.6-1.3)
[2022-11-28] MEDS: BLOOD GLUCOSE MONITORING 1 DEV DEV FS SCH ×3 (06:27→16:30)
[2022-11-28] MEDS: carvediloL 6.25 MG TAB PO SCH ×2 (09:00→10:00)
[2022-11-28] MEDS: PANTOPRAZOLE 40 MG TABEC PO SCH (10:00)
[2022-11-28] MEDS: SEVELAMER CARBONATE 800 MG TAB PO SCH ×3 (10:00→17:00)
[2022-11-28] MEDS: ATORVASTATIN 20 MG TAB PO SCH (10:27)
[2022-11-28] MEDS ORDERED: CARV6.252 PO (10:38)
[2022-11-28] MEDS ORDERED: ATOR20TA40 PO (10:38)
--- NOTE | 2022-11-28 16:24 | NUR ---
11/28/22 1624 KARLI CLINE BUS ANALYST TRANSPORTATION REQUEST FORM FAXED TO [facility] FAX .CALL [facility] AND SPOKE WITH KAELA THAT SAID TRANSPORT WAS STILL PENDING AND WHEN TRANSPORTAION IS CONFIRMED [facility] WILL BE CONTACTING ICU NURSING STATION . ICU NURSE CHERISE WAS INFORMED OF THE ABOVE INFORMATION.
--- NOTE | 2022-11-28 19:06 | NUR ---
CALLED [facility] FOR UPDATED WITH PICKUP TIME. STATED THEY ARE ON THE WAY. ENDORSED TO FIELD SERVICE ENGINEER CHARGE [facility].
--- NOTE | 2022-11-28 19:15 | NUR ---
RECEIVED PATIENT IN BED, ALERT AND ORIENTED; BREATHING EVEN AND UNLABORED ON ROOM AIR. JUST AWAITING FOR HIS TRANSPORT TO PICK HIM UP FOR DISCHARGE.
--- NOTE | 2022-11-28 20:05 | NUR ---
PATIENT'S TRANSPORT [facility]W CAME IN TO BRING PATIENT HOME OR PLACE WHERE HE LIVES. IV CANNULA ON RIGHT ARM REMOVED WELL HIS ID BAND.DISHCHARGE.
== END 2022-11-28 20:05 | disposition home or self-care (01) | DRG 640 ==
LOC: MED 10:32 → MIC 14:54
PROVIDERS: ADMIT Student in an Organized Health Care Education/Training Program; ATTEND Student in an Organized Health Care Education/Training Program
PROC: 5A1D70Z Performance of Urinary Filtration, Intermittent, Less than 6 Hours Per Day (ICD-10-PCS; principal; 2022-11-26)
PROC: 5A1D70Z Performance of Urinary Filtration, Intermittent, Less than 6 Hours Per Day (ICD-10-PCS; 2022-11-28)
DX: E87.5 Hyperkalemia (principal); J96.01 Acute respiratory failure with hypoxia; N18.6 End stage renal disease; I12.0 Hypertensive chronic kidney disease with stage 5 chronic kidney disease or end stage renal disease; E87.70 Fluid overload, unspecified; E87.1 Hypo-osmolality and hyponatremia; E83.51 Hypocalcemia; E78.5 Hyperlipidemia, unspecified; I25.10 Atherosclerotic heart disease of native coronary artery without angina pectoris; E11.22 Type 2 diabetes mellitus with diabetic chronic kidney disease; D53.9 Nutritional anemia, unspecified; D63.8 Anemia in other chronic diseases classified elsewhere; Z88.0 Allergy status to penicillin; Z88.8 Allergy status to other drugs, medicaments and biological substances; Z79.899 Other long term (current) drug therapy; Z79.891 Long term (current) use of opiate analgesic; Z99.2 Dependence on renal dialysis; Z98.61 Coronary angioplasty status
CPT/HCPCS: 36415; 71045; 80048; 80053; 82150; 82948; 83036; 83690; 83735; 83880; 84100; 84484; 85025; 85610; 85730; 87040; 87081; 93005; 94640; 96374; 96375; 97112; 97116; 97163-GP; 97530; 99291; J1644; J1815; J2270; J3370; J7613; Q0092